=== PATIENT | male | born 1960 | race Caucasian/White ===

== ENCOUNTER 2023-03-04 21:27 | Emergency (ER) | payer OTHER, SELFPAY ==
[2023-03-04 21:30] VITALS: BP 146/83; PULSE 93; RESP 18; TEMP 36.3; O2SAT 96
--- NOTE | 2023-03-04 21:39 | ED_ITS ---
HPI - Back Pain/Injury General: Chief Complaint: Back Pain/Injury Stated Complaint: back pain Time Seen by Provider: 03/04/23 21:38 History of Present Illness: 62-year-old male patient comes in with l ow back pain. Patient has had low back pain for about 2 months now. Worse over the last 2 days. Patient gone to [facility] emergency room yesterday and was given a dose of morphine that he reported he had minimal to help with his back pain. Patient otherwise has been using [id number] medications with minimal relief. Patient went to a chiropractor with no relief. Patient appears nontoxic. Patient appears in moderate to severe pain. Review of Systems General: Reports: 10 or more systems reviewed and unremarkable except in HPI and below Musc: Reports: back pain PFS ED PFSH: Medical History (Updated 03/04/23 @ 22:44 by KARLEE Mcelroy) Prostate cancer screening Bladder wall thickening Lung nodule < 6cm on CT 2.5cm right lower lobe H/O drug abuse Smoker 1PPD Renal cell carcinoma Surgical History H/O right nephrectomy Physical Exam Const: COMMON NORMALS: alert HENMT: COMMON NORMALS: normocephalic HEAD & SCALP: normocephalic Neck/C-Spine: COMMON NORMALS: full ROM Resp: COMMON NORMALS: normal respiratory effort and clear to auscultation bilaterally AUSCULTATION: clear to auscultation bilaterally Cardio: COMMON NORMALS: regular rate RATE: regular rate Back/Pelvis: LUMBAR SPINE/LOWER BACK: No lumbar spinal tenderness and Yes paraspinal muscle tenderness Lumbar paraspinal muscle tenderness: right Extremity: COMMON NORMALS: normal to inspection Neuro: SENSORIUM/ORIENTATION: Yes alert Skin: COMMON NORMALS: turgor normal GENERAL SKIN EXAM: turgor normal Course Vital Signs: Vital signs: Vital Signs Temperature 97.4 F L 03/04/23 21:30 Pulse Rate 93 03/04/23 21:30 Respiratory Rate 18 03/04/23 21:30 Blood Pressure 146/83 03/04/23 21:30 Pulse Oximetry 96 03/04/23 21:30 Oxygen Delivery Me thod Room Air 03/04/23 21:30 MDM - Back Pain/Injury Medical Decision Making 62-year-old male patient with increased back pain. On exam patient has paraspinous muscle tenderness increased on the right than the left of the low back. Patient also has some vertebral tenderness in the L5 area. Differential diagnosis includes but not limited to intervertebral disc disease, facet arthropathy, lumbar radiculopathy, lumbar strain. X-ray notes degenerative changes. Patient was given a injection of Toradol and 1 hydrocodone with 10 mg of dexamethasone with significant improvement of low back pain. Patient was sent over a prescription for Celebrex and cyclobenzaprine. Patient reports understanding of care plan need for follow-up with primary care for further instructions. XR interpretation done by ED provider, pending radiology final review Discharge Plan Discharge Patient Disposition: Home Clinical Impression: Lumbar disc disease with radiculopathy Condition: Stable Prescriptions: New diclofenac sodium 75 mg tablet,delayed release (DR/EC) 75 mg PO BID Qty: 20 0RF cyclobenzaprine 10 mg tablet 10 mg PO BID PRN (Reason: muscle spasm) Qty: 20 0RF No Action sildenafil [Viagra] 50 mg tablet 50 mg PO DAILY PRN (Reason: sexual activity) Qty: 30 0RF Rx Instructions: administer 30 minutes to 4 hours before activity Discharge Orders: Discharge ED (Routine); Ordered 03/04/23 Ordered By: Daniel Hdez Discharge Diet: Usual diet Discharge Activity: Increase activity as tolerated Patient Instructions: Back Pain (ED) Activity Restrictions/Additional Instructions: Activity as tolerated. Is important to try to maintain your normal activity is much as possible. Avoid straining or heavy lifting. Follow-up with primary care in 1 week for recheck. Return to ER for new concerns. Coding Level of Care Code ED Glassware Maker Demonstrator for Jaya Lockhart
--- NOTE | 2023-03-04 21:42 | XRR_ITS ---
PROCEDURE INFORMATION: Exam: XR Lumbosacral Spine Exam date and time: 03/04/2023 10:29 PM Age: 62 years old Clinical indication: Lumbago; Patient HX: Chronic lower back pain; That radiates to posterior left leg/foot TECHNIQUE: Imaging protocol: Radiologic exam of the lumbosacral spine. Views: 2 or 3 views. COMPARISON: No relevant prior studies available. FINDINGS: Bones/joints: Severe degenerative disc disease at L5-S1. Multilevel facet arthrosis. Soft tissues: Unremarkable. XR/XR lumbar spine 2-3V* [id number] IMPRESSION: 1. Severe degenerative disc disease at L5-S1. 2. Multilevel facet arthrosis.
[2023-03-04] MEDS: ketorolac 30 mg/mL INJ IM (21:47)
[2023-03-04] MEDS: dexamethasone 10 mg/mL INJ IM (21:48)
[2023-03-04] MEDS: HYDROcodone-acetaminophen 10-325 mg Tablet 1 TAB PO (21:48)
== END 2023-03-04 22:54 | disposition home or self-care (01) ==
PROVIDERS: Emergency Provider Nurse Practitioner Family
DX: M51.16 Intervertebral disc disorders with radiculopathy, lumbar region (principal)
CPT/HCPCS: 72100; 96372; 99284; J1100; J1885

== ENCOUNTER 2023-03-19 13:07 | Emergency (ER) | payer OTHER, SELFPAY ==
[2023-03-19 13:10] VITALS: BP 153/84; PULSE 91; RESP 16; TEMP 36.4; O2SAT 94; BMI 23.7
--- NOTE | 2023-03-19 13:39 | W.ED.BACK ---
HPI - Back Pain/Injury General: Chief Complaint: Back Pain/Injury Stated Complaint: back pain Time Seen by Provider: 03/19/23 13:30 History of Present Illness: 62-year-old male patient comes in for recurrent back pain. Patient was seen 3 to 4 weeks ago and was treated at that time for back pain and was recommended to follow-up with primary care. Patient felt better after steroids and medications by mouth. Patient reports since last night though his pain has returned and that he is having increased pain and discomfort. Patient appears nontoxic. Patient appears in moderate pain. Review of Systems General: Reports: 10 or more systems reviewed and unremarkable except in HPI and below Musc: Reports: back pain PFSH ED PFSH: Medical History (Updated 03/19/23 @ 13:43 by KARLEE Mcelroy) Prostate cancer screening Bladder wall thickening Lung nodule < 6cm on CT 2.5cm right lower lobe H/O drug abuse Smoker 1PPD Renal cell carcinoma Surgical History H/O right nephrectomy Physical Exam Const: COMMON NORMALS: alert HENMT: COMMON NORMALS: normocephalic HEAD & SCALP: normocephalic Neck/C-Spine: COMMON NORMALS: full ROM Resp: COMMON NORMALS: normal respiratory effort Cardio: COMMON NORMALS: regular rate RATE: regular rate Back/Pelvis: COMMON NORMALS: thoracic and lumbar spine normal to inspection LUMBAR SPINE/LOWER BACK: Yes paraspinal muscle tenderness Extremity: COMMON NORMALS: full ROM Neuro: SENSORIUM/ORIENTATION: Yes alert Skin: COMMON NORMALS: turgor normal GENERAL SKIN EXAM: turgor normal Course Vital Signs: Vital signs: Vital Signs Temperature 97.6 F 03/19/23 13:10 Pulse Rate 91 03/19/23 13:10 Respiratory Rate 16 03/19/23 13:10 Blood Pressure 153/84 03/19/23 13:10 Pulse Oximetry 94 03/19/23 13:10 MDM - Back Pain/Injury Medical Decision Making Patient comes back for recurring back pain. On exam patient has some tenderness at the L5-S1 area of the spine. Some paraspinous muscle tenderness. Patient ambulates without difficulty. Patient appears in moderate pain. Patient needs follow-up with orthopedic spine. No new injuries were reported. Differential diagnosis includes intervertebral disc disease, facet arthropathy, lumbar radiculitis. No radiology studies performed this visit Discharge Plan Discharge Patient Disposition: Home Clinical Impression: Lumbar back pain Condition: Stable Prescriptions: New hydrocodone-acetaminophen 5-325 mg tablet 1 tab PO Q8H PRN (Reason: pain) Qty: 10 0RF celecoxib 200 mg capsule 200 mg PO BID Qty: 20 0RF Discontinued diclofenac sodium 75 mg tablet,delayed release (DR/EC) 75 mg PO BID Qty: 20 0RF No Action sildenafil [Viagra] 50 mg tablet 50 mg PO DAILY PRN (Reason: sexual activity) Qty: 30 0RF Rx Instructions: administer 30 minutes to 4 hours before activity cyclobenzaprine 10 mg tablet 10 mg PO BID PRN (Reason: muscle spasm) Qty: 20 0RF Discharge Orders: Discharge ED (Routine); Ordered 03/19/23 Ordered By: Daniel Hdez Discharge Diet: Usual diet Discharge Activity: Increase activity as tolerated Patient Instructions: Opioid Safety, Pain Management Activity Restrictions/Additional Instructions: Orthopedics will contact you regarding follow-up appointment with orthopedic spine. Follow-up with primary care otherwise for further evaluation and refills of medication. Return to ED for new concerns. Coding Level of Care Code ED Sheet Metal Duct Installer Helper for Jaya Lockhart
[2023-03-19] MEDS: HYDROcodone-acetaminophen 7.5-325 mg Tablet 1 TAB PO (13:55)
[2023-03-19] MEDS: ketorolac 30 mg/mL INJ IM (13:58)
[2023-03-19] MEDS: dexamethasone 10 mg/mL INJ IM (13:58)
[2023-03-19 14:31] VITALS: BP 158/107; PULSE 73; RESP 16; O2SAT 94
--- NOTE | 2023-03-19 20:15 | DCPLANNER ---
Addendum entered by Charissa Gomez 03/23/23 08:45: I resent message on 03/23/23 to ortho for back pain. 0845. Original Note: Message sent to Ortho spine for recurring persistent back pain
== END 2023-03-19 14:31 | disposition home or self-care (01) ==
PROVIDERS: Emergency Provider Nurse Practitioner Family
DX: M54.50 Low back pain, unspecified (principal); Z85.528 Personal history of other malignant neoplasm of kidney
CPT/HCPCS: 96372; 99284; J1100; J1885

== ENCOUNTER 2023-05-07 06:00 | Oncology outpatient (recurring) (ONCR) | payer OTHER, SELFPAY ==
--- NOTE | 2023-05-05 14:07 | N.ONRAD NP_ITS ---
Radiation Oncology New Patient Visit Patient: Zhang Escamilla MR#: [id number] : 1960> Age: 62> Sex: Male> Dictated by: Dr. Shabnam Tran Date of Service: 05/05/2023 Referring Physician(s) : Stefani Diagnosis: Stage IV kidney cancer Radiotherapy to date: Summary > No prior radiation therapy. Chief Complaint / History of Present Illness: Patient is 62-year-old gentleman with a history of a renal cell carcinoma dating back to 2013 for which she had surgery. In the fall he began to have increasing lumbar pain. From December on he said it was excruciating. 3 weeks ago he was evaluated and found to have metastatic disease with bony metastasis in the L2 vertebrae as well as 2 small less than 1 cm lesions in the brain. He is here today to discuss palliative radiation to help alleviate pain and possibly down the line treat the brain metastasis once he is comfortable. Current Medications: apixaban (Eliquis) mg PO celecoxib 200 mg PO BID cyclobenzaprine 10 mg PO BID PRN dexamethasone 4 mg PO DAILY metoprolol succinate ER 100 mg PO DAILY midodrine mg PO morphine ER mg PO oxycodone-acetaminophen 5-325 mg 1 tab PO Q6H pantoprazole 40 mg PO DAILY prednisone 20 mg PO DAILY prochlorperazine maleate mg PO sildenafil (Viagra) 50 mg PO DAILY PRN Allergies: NKA Medical History: Prostate cancer screening Bladder wall thickening, A-fib, GI bleed, COPD, multiple lung metastasis Lung nodule < 6cm on CT 2.5cm right lower lobe H/O drug abuse Smoker 1PPD Renal cell carcinoma. Surgical History: H/O right nephrectomy 2013 Family History: Social History: Current Complaints / Review of Systems: . Currently he is having considerable pain. He is on a significant amount of pain medicine at this time. He also has had some intermittent diarrhea. Vital Signs: Performed on 05/05/2023 1:39 PM BMI - 23.624 kg/m2 (high), Height - 75 in, Weight - 189 lbs, Temperature - 96.2 f, Pulse - 51 /min (low), Respiration - 18 /min, O2 Sat - 90 % (low), Pain - 0, Fatigue - 0 and BP - 89/ 60 mm(hg)(low). Physical Exam: General: Patient is hunched over in his chair. His son is rubbing on his back. HEENT: Normocephalic atraumatic. Pupils are equal, sclera clear, extraocular muscles intact. Patient is noted to have extremely poor dentition. Pulmonary: Patient has oxygen in place as he was short of breath when he arrived. Pulse ox is only 90% on 2 L. Respiratory rate is regular and nonlabored Cardiovascular: Regular rate and rhythm Abdomen: Patient is thin with minimal adipose tissue Extremities: Noted to have mild clubbing but no cyanosis or edema Skin: Warm and dry with chronic skin changes across his face and arms Neurological: Alert and orient x 3 speech intact. Patient is in a wheelchair Performance Status: 70 Pathology: Renal cell carcinoma Imaging: See HPI Impression: Stage IV renal cell carcinoma Plan: I reviewed with him his current pain level. He is able to control most of his pain with the medication. Prior to that it was unbearable. Is located at the L2 vertebrae. He had some concerns about undergoing radiation as his father had a difficult course in 2004. I reassured him that we would be delivering radiation to the L2 vertebrae and minimize toxicity to surrounding structures. We discussed the simulation process. We reviewed the daily treatment regiment. He drives nearly an hour to get here. I recommended to him that we do a 3 time a week treatment in order to not have as much of an impact on him. He is in agreement with this. He will undergo simulation today and will begin his treatments within the next 3 to 4 days. Signed by: 05/05/2023 2:05:50 PM <<Signature on File>> Time spent with patient: CPT Code: CPT Code:
[2023-05-05 16:25] LABS: Reticulocyte % 1.9 % (0.5-2.0)
[2023-05-05 16:25] LABS: Basophils % 0.1 %; Hematocrit 40.7 % (37-53); Lymphocytes # 0.7 10^3/uL (0.8-4.8); Lymphocytes % 3.6 %; Mean Corpuscular HGB Conc 28.7 g/dL (30-55); Mean Corpuscular Hemoglobin 26.9 pg (27-33); Mean Corpuscular Volume 93.6 fl (82-101); Mean Platelet Volume 9.4 fL (7.4-10.4); Monocytes # 0.9 10^3/uL (0.2-0.9); Monocytes % 4.9 %; Neutrophils # 17.09 10^3/uL (1.8-7.7); Neutrophils % 90.3 %; Nucleated Red Blood Cells % 0 %; Platelet Count 439 10^3/cmm (157-399); Red Blood Count 4.35 10^6/uL (3.85-5.65); Red Cell Distribution Width 17.6 % (12.1-15.1); White Blood Count 18.91 10^3/uL (3.29-11.43)
[2023-05-05 17:02] LABS: Alanine Aminotransferase 63 U/L (0-41); Albumin Level 3.4 g/dL (3.5-5.2); Alkaline Phosphatase 197 U/L (40-130); Anion Gap 15.8 (5-19); Aspartate Amino Transferase 13 U/L (0-40); Blood Urea Nitrogen 22 mg/dL (8-23); Calcium 8.2 mg/dL (8.5-10.5); Carbon Dioxide 25 mmol/L (22-29); Chloride 104 mmol/L (98-107); Free T4 Free Thyroxine 0.71 ng/dL (0.82-1.77); Globulin 3.1 g/dL (1.3-4.6); Glomerular Filtration Rate 113.9 mL/min (90-130); Glucose 115 mg/dL (65-115); Lactate Dehydrogenase 230 U/L (135-225); Osmolality Calculated 294 mOsm/kg (285-295); Potassium 4.8 mmol/L (3.5-5.1); Prostate Specific Antigen 0.242 ng/mL (0-4); Sodium 140 mmol/L (136-145); Thyroid Stimulating Hormone 4.26 uIU/mL (0.27-4.20); Total Bilirubin 0.4 mg/dL (0.15-1.2); Total Protein 6.5 g/dL (6.6-8.7)
[2023-05-05 17:27] LABS: Folate Level 2.8 ng/mL (4.5-32.2)
[2023-05-05 21:22] LABS: Hepatitis A Antibody IgM Non-Reactive (Nonreactive); Hepatitis B Core AB, Total Non-Reactive (Nonreactive); Hepatitis B Surface Antigen Non-Reactive (Nonreactive); Hepatitis C Virus Antibody Non-Reactive (Nonreactive)
[2023-05-06 01:50] LABS: Ferritin 956 ng/mL (30-400)
[2023-05-06 02:07] LABS: Vitamin B12 689 pg/mL (232-1245)
[2023-05-06 08:42] LABS: Hepatitis B Surface AB < 3.5 (11.5-1000)
[2023-05-07 09:50] LABS: PROTEIN, TOTAL 6.4 g/dL (6.1-8.1)
[2023-05-08 09:39] LABS: ALPHA 1 GLOBULIN 0.7 g/dL (0.2-0.3); ALPHA 2 GLOBULIN 1.2 g/dL (0.5-0.9); BETA 1 GLOBULIN 0.4 g/dL (0.4-0.6); BETA 2 GLOBULIN 0.4 g/dL (0.2-0.5); GAMMA GLOBULIN 0.7 g/dL (0.8-1.7)
[2023-05-10 04:04] LABS: Methylmalonic Acid 162 nmol/L (87-318)
[2023-05-11 12:09] LABS: Soluble Transferrin Receptor 2.25 mg/L (0.76-1.76)
[2023-05-11 15:03] LABS: KAPPA LIGHT CHAIN, FREE, SERUM 27.3 mg/L (3.3-19.4); KAPPA/LAMBDA LIGHT CHAINS FREE 1.36 (0.26-1.65); LAMBDA LIGHT CHAIN, FREE, SERU 20.1 mg/L (5.7-26.3)
== END 2023-05-10 23:59 | disposition home or self-care (01) ==
PROVIDERS: Internal Medicine; Visit Provider Radiology Radiation Oncology
DX: C79.51 Secondary malignant neoplasm of bone (principal); C79.31 Secondary malignant neoplasm of brain; Z85.528 Personal history of other malignant neoplasm of kidney; Z79.891 Long term (current) use of opiate analgesic; Z51.0 Encounter for antineoplastic radiation therapy; Z99.81 Dependence on supplemental oxygen
CPT/HCPCS: 36415; 77290; 77295; 77300; 77334; 80053; 82607; 82728; 82746; 83615; 83883; 83921; 84153; 84155; 84165; 84238; 84439; 84443; 85025; 85045; 86334; 86705; 86706; 86709; 86803; 87340; 99205

== ENCOUNTER 2023-05-07 09:52 | Inpatient (IN) | payer OTHER, SELFPAY ==
[2023-05-07] VITALS (60 sets, daily range): BP systolic 77–113; BP diastolic 53–91; PULSE 71–167; RESP 12–29; TEMP 36.2–36.9; O2SAT 85–97; BMI 22.5
--- NOTE | 2023-05-07 10:15 | ECG_ITS ---
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 Measurements Intervals Soper Rate: 114 P: 0 AL: 0 QRS: 125 QRSD: 129 T: -82 QT: 322 QTc: 443 Interpretive Statements ATRIAL FLUTTER WITH RAPID VENTRICULAR RESPONSE RIGHT BUNDLE BRANCH BLOCK [120+ ms QRS DURATION, UPRIGHT V1, 40+ ms S IN I/aVL/V4/V5/V6] LEFT POSTERIOR FASCICULAR BLOCK [QRS AXIS > 109, INFERIOR Q] MODERATE T-WAVE ABNORMALITY, CONSIDER LATERAL ISCHEMIA [-0.1+ mV T-WAVE IN I/aVL/V5/V6] MODERATE T-WAVE ABNORMALITY, CONSIDER INFERIOR ISCHEMIA [-0.1+ mV T-WAVE IN II/aVF] No previous ECG available for comparison Electronically Signed On 05-07-2023 11:19:27 CDT by Jamal Garcia M.D. [id number]
--- NOTE | 2023-05-07 10:15 | XR_ITS ---
WS: [id number] Exam: XR chest 1V [id number] Date/Time of Exam: 05/07/2023 10:33 AM Reason For Exam: shortness of breath Compared to outside chest CT performed 04/08/2023. Large area of consolidation along the RIGHT heart border that may represent either pneumonia or a lar ge mass. Prominent RIGHT basal pleural effusion and atelectasis in the RIGHT middle and lower lobes. Several ill-defined nodular densities in the mid and lower LEFT lung. No pneumothorax. Heart size is normal. The mediastinum is normal in contour. Bony structures are intact. IMPRESSION: 1. Extensive area of consolidation in the mid and lower RIGHT lung that may represent a large mass or consolidated pneumonia. Prominent RIGHT basal pleural effusion. 2. Several small ill-defined nodular densities in the mid and lower LEFT lung.
--- NOTE | 2023-05-07 10:17 | ED_ITS ---
HPI - SOB/Dyspnea 2 General: Chief Complaint: Shortness of Breath/Dyspnea Stated Complaint: SOB Time Seen by Provider: 05/07/23 09:53 History of Present Illness: HPI Narrative: 62-year-old man who is fairly poor histo loli on my look at his medications it appears he is on Eliquis, he is not sure why but he presents today with shortness of breath and is in A-fib with RVR. He also has chronic pain syndrome and has listed morphine and oxycodone taken regularly. He says he had some cough. He feels short of breath. He has noticed some palpitations. He really does not know any of his other medical problems. He says he has not had a heart attack in the past. No known fevers. He later tells me that he was treated for pneumonia at [facility] around a month ago. Review of Systems 2 Narrative: Constitutional symptoms: Negative except as documented in HPI. Skin symptoms: Negative except as documented in HPI. Eye symptoms: Negative except as documented in HPI. ENMT symptoms: Negative except as documented in HPI. Respiratory symptoms: Negative except as documented in HPI. Cardiovascular symptoms: Negative except as documented in HPI. Gastrointestinal symptoms: Negative except as documented in HPI. Genitourinary symptoms: Negative except as documented in HPI. Musculoskeletal symptoms: Negative except as documented in HPI. Neurologic symptoms: Negative except as documented in HPI. Psychiatric symptoms: Negative except as documented in HPI. Endocrine symptoms: Negative except as documented in HPI. PFSH ED 2 PFSH: Medical History (Updated 05/07/23 @ 13:15 by Marie Edouard MD) Metastatic renal cell carcinoma Prostate cancer screening Bladder wall thickening Lung nodule < 6cm on CT 2.5cm right lower lobe H/O drug abuse Smoker 1PPD Renal cell carcinoma Surgical History H/O right nephrectomy Physical Exam 2 Narrative: EXAM NARRATIVE: General: Alert, no acute distress. Skin: Warm, dry. Head: Normocephalic, atraumatic. Neck: Supple, trachea midline. Eye: Extraocular movements are intact. Ears, nose, mouth and throat: mucosa moist. Cardiovascular: Tachycardic, irregular, Normal peripheral perfusion. Respiratory: Diminished breath sounds in the right lower lung, some increased work of breathing with any kind of exertion, breath sounds are equal, Symmetrical chest wall expansion. Gastrointestinal: Soft, Nontender, Non distended, Normal bowel sounds. Musculoskeletal: Normal ROM, no deformity. Neurological: Alert and oriented, No focal neurological deficit observed. Psychiatric: Cooperative, appropriate mood & affect. Course 2 Vital Signs: Vital signs: Vital Signs Temperature 98.4 F 05/07/23 09:57 Pulse Rate 108 H 05/07/23 12:30 Respiratory Rate 20 H 05/07/23 10:31 Blood Pressure 102/64 05/07/23 12:30 Pulse Oximetry 92 05/07/23 12:30 Oxygen Delivery Me thod Nasal Cannula 05/07/23 12:30 Oxygen Flow Rate 3 05/07/23 11:30 MDM - SOB/Dyspnea Medical Decision Making Differential diagnosis for patient with shortness of breath includes but is not limited to and based on the above HPI, review of systems and physical exam: Pneumonia. Bronchitis. Asthma or COPD with acute exacerbation. Acute coronary syndrome / MD. Pulmonary embolism. Anxiety. Congestive heart failure. Viral infections including influenza and Covid-19. Atrial fibrillation. Anxiety. Pleural effusion. Pneumothorax. In this patient who presents in atrial fibrillation with RVR congestive heart failure is a concern. Workup: Lab work, chest X-ray and EKG ordered to evaluate, rule in and rule out above pathologies Lab Review: Laboratory results were reviewed and interpreted by myself the emergency room physician. Patient has a white count of 16,000. Hemoglobin is 11.9. BUN is 28 and creatinine is 0.8 Chest x-ray: Right-sided effusion and possible mass. What appears to be a right-sided infiltrate. Pulmonary nodules. This was reviewed and interpreted by myself the ER physician. Cardiac monitoring: Patient initially had heart rate in the 150s to 160s. An EKG was not performed until after amiodarone bolus and fluids were started. This was interpreted by myself the emergency room physician. EKG: Time 10:37 AM rate 114. Atrial flutter with rapid ventricular response. Nonspecific T wave abnormality. This was reviewed and interpreted by myself the ER physician at 10:45 AM. EKG: Time 12:31 AM. Rate 81. Atrial flutter.. Nonspecific T wave abnormality. This was reviewed and interpreted by myself the ER physician at CT of the chest without contrast: Numerous lung nodules. pleural effusion. A mass on the right side. I think there is some postobstructive pneumonia particularly given his clinical presentation. I reviewed and interpreted this film personally. I also reviewed the radiology review which is summarized below 1. Innumerable pulmonary metastasis in both lungs similar to the prior outside CT 04/08/2023. Some of these appear slightly progressed compared to previous considering differences in technique. 2. Progressed masslike consolidation in the RIGHT lower lobe with central low- attenuation change. This may present dense consolidative pneumonia or necrotic neoplasm. Increased surrounding infiltrate likely postobstructive pneumonia. 3. RIGHT hilar lymphadenopathy with bronchovascular thickening. 4. Small RIGHT pleural effusion. 5. Partially visualized liver metastasis with lymphadenopathy in the upper abdomen. 6. Sclerotic lesion L2 vertebral body appears stable compared to the outside examination presumably metastatic. 7. Prior RIGHT nephrectomy Reexamination: Patient has improved heart rate. He is now in flutter. No increased work of breathing. No altered mental status. He actually does appear a bit more alert at this time. Lab Data 05/07/23 10:15 05/07/23 10:15 Labs/Radiology: Laboratory Results WBC 15.77 10^3/uL (3.29-11.43) H 05/07/23 10:15 RBC 4.42 10^6/uL (3.85-5.65) 05/07/23 10:15 Hgb 11.90 g/dL (11.27-16.99) 05/07/23 10:15 Hct 41.4 % (37-53) 05/07/23 10:15 MCV 93.7 fl (82-101) 05/07/23 10:15 MCH 26.9 pg (27-33) L 05/07/23 10:15 MCHC 28.7 g/dL (30-55) L 05/07/23 10:15 RDW 17.5 % (12.1-15.1) H 05/07/23 10:15 Plt Count 353 10^3/cmm (157-399) 05/07/23 10:15 MPV 9.4 fL (7.4-10.4) 05/07/23 10:15 Neut % (Auto) 81.7 % 05/07/23 10:15 Lymph % (Auto) 8.8 % 05/07/23 10:15 Amite % (Auto) 6.9 % 05/07/23 10:15 Eos % (Auto) 1.5 % 05/07/23 10:15 Baso % (Auto) 0.1 % 05/07/23 10:15 Neut # (Auto) 12.88 10^3/uL (1.8-7.7) H 05/07/23 10:15 Lymph # (Auto) 1.4 10^3/uL (0.8-4.8) 05/07/23 10:15 Amite # (Auto) 1.1 10^3/uL (0.2-0.9) H 05/07/23 10:15 Eos # (Auto) 0.2 10^3/uL (0.0-0.8) 05/07/23 10:15 Baso # (Auto) 0.0 10^3/uL (0.0-0.1) 05/07/23 10:15 Nucleated RBC % (auto) 0 % 05/07/23 10:15 Nucleated RBCs # 0.0 /100WBC 05/07/23 10:15 Sodium 140 mmol/L (136-145) 05/07/23 10:15 Potassium 4.6 mmol/L (3.5-5.1) 05/07/23 10:15 Chloride 106 mmol/L (98-107) 05/07/23 10:15 Carbon Dioxide 25 mmol/L (22-29) 05/07/23 10:15 Anion Gap 13.6 (5-19) 05/07/23 10:15 BUN 28 mg/dL (8-23) H 05/07/23 10:15 Creatinine 0.8 mg/dL (0.7-1.2) 05/07/23 10:15 GFR Calculation 97.6 mL/min (90-130) 05/07/23 10:15 Glucose 84 mg/dL (65-115) 05/07/23 10:15 Calculated Osmolality 295 mOsm/kg (285-295) 05/07/23 10:15 Calcium 8.6 mg/dL (8.5-10.5) 05/07/23 10:15 Magnesium 1.7 mg/dL (1.7-2.3) 05/07/23 10:15 Total Bilirubin 0.3 mg/dL (0.15-1.2) 05/07/23 10:15 AST 10 U/L (0-40) 05/07/23 10:15 ALT 48 U/L (0-41) H 05/07/23 10:15 Alkaline Phosphatase 183 U/L (40-130) H 05/07/23 10:15 Troponin T Baseline 33 ng/L (0-15) H 05/07/23 10:15 Troponin T 120 Minute 34.50 ng/L (0-15) H 05/07/23 12:09 Delta Troponin T 1.50 ABS# (0-10) 05/07/23 12:09 C-Reactive Protein 75.3 mg/L (0.0-4.9) H 05/07/23 10:15 NT-Pro-B Natriuret Pep 7049 pg/mL (0-125) H 05/07/23 10:15 Total Protein 5.4 g/dL (6.6-8.7) L 05/07/23 10:15 Albumin 3.0 g/dL (3.5-5.2) L 05/07/23 10:15 Globulin 2.4 g/dL (1.3-4.6) 05/07/23 10:15 Influenza Type A Ag negative (Negative) 05/07/23 10:41 Influenza Type B Ag negative (Negative) 05/07/23 10:41 All radiology interpretation(s) finalized by discharge Other Data Assessment and plan: A-fib with RVR Healthcare associated bacterial pneumonia Sepsis Hypotension -Amiodarone bolus and fluids were started initially for his rate. Rate has improved and now is in the 80s on a diltiazem drip. Blood pressure still borderline at 95/59. -Patient initially came in with A-fib with RVR and had no infectious complaints. His hypotension improved with improvement in his heart rate. Chest x-ray was abnormal. A CT scan was ordered and that does appear to have pneumonia and so at that time lactic acid and blood cultures were ordered there was some delay secondary to initially seeming to be more cardiac. -1 L normal saline bolus. Patient has a proBNP of over 7000. -Broad-spectrum antibiotics were administered. Zyvox and meropenem. Patient has had a hospitalization for pneumonia recently. -Sepsis quality measures. -Lactic acid with a reflex was ordered. -Blood cultures were ordered. - I spoke with Dr Stephanie whi is admitting the patient to the ICU - Discussed findings and plan with patient. Answered any questions. - All laboratory values were reviewed and interpreted personally by myself, the ER physician - All imaging was reviewed and interpreted personally by myself, the ER physician. - Evaluation and treatment of this problem were appropriate in the emergency setting -I spent a total of >35 minutes of critical care time managing the patient, independent of any other practitioner. -The time involved in the performance of separately reportable procedures was not counted towards critical care time. Discharge Plan Discharge Patient Disposition: Admitted As Inpatient Clinical Impression: Pneumonia, Sepsis, Atrial fibrillation with rapid ventricular response, Acute hypotension Condition: Stable Coding Level of Care Code ED Clinical Nursing Instructor for Jaya Lockhart
[2023-05-07] MEDS: sodium chloride 0.9% 1,000 ML 999 ML IV (10:23)
[2023-05-07] MEDS: amiodarone 150 MG/100 ML PREMIX 400 MG IV (10:24)
[2023-05-07 10:46] LABS: Basophils % 0.1 %; Eosinophils # 0.2 10^3/uL (0.0-0.8); Eosinophils % 1.5 %; Hematocrit 41.4 % (37-53); Lymphocytes # 1.4 10^3/uL (0.8-4.8); Lymphocytes % 8.8 %; Mean Corpuscular HGB Conc 28.7 g/dL (30-55); Mean Corpuscular Hemoglobin 26.9 pg (27-33); Mean Corpuscular Volume 93.7 fl (82-101); Mean Platelet Volume 9.4 fL (7.4-10.4); Monocytes # 1.1 10^3/uL (0.2-0.9); Monocytes % 6.9 %; Neutrophils # 12.88 10^3/uL (1.8-7.7); Neutrophils % 81.7 %; Nucleated Red Blood Cells % 0 %; Platelet Count 353 10^3/cmm (157-399); Red Blood Count 4.42 10^6/uL (3.85-5.65); Red Cell Distribution Width 17.5 % (12.1-15.1); White Blood Count 15.77 10^3/uL (3.29-11.43)
[2023-05-07 11:07] LABS: Troponin(5th) Baseline 33 ng/L (0-15)
[2023-05-07 11:09] LABS: Influenza A by IFA negative (Negative); Influenza B by IFA negative (Negative)
--- NOTE | 2023-05-07 11:12 | CT_ITS ---
WS: [id number] CT CHEST TECHNIQUE: Noncontrast CT of the chest with coronal and sagittal reformatted images. CLINICAL INFORMATION: Abnormal chest x-ray COMPARISON: Outside CT 04/08/2023. No report available. DLP: 534.[address] scans at [facility] use at least one of these dose optimization techniques: automated e xposure control; mA and/or kV adjustment per patient size (includes targeted exams where dose is matc hed to clinical indication); or iterative reconstruction. FINDINGS: Advanced chronic emphysematous changes. Innumerable bilateral pulmonary metastasis similar to 04/08/2023. Some of these appear slightly progressed compared to the prior examination. Bronchovasc ular thickening with lymphadenopathy about the RIGHT hilum. Consolidative masslike infiltrate in the RIGHT lower lobe appears slightly progressed compared to 03/31/2023 with increased surrounding RIGHT l ower lobe infiltrate compatible with pneumonia likely postobstructive. Tiny amount of RIGHT pleural f luid with fluid along the fissure. Partially visualized presumed metastasis in the liver although indeterminate on this noncontrast CT. Diffuse mesenteric edema and body wall anasarca in the upper abdomen. Partially visualized LEFT renal cyst. Hepatomegaly. Prior RIGHT nephrectomy. Lymphadenopathy partially visualized in the upper abdom en periaortic aortocaval and retroperitoneal. Sclerotic metastatic lesion L2 vertebral body is similar to the prior study. IMPRESSION: 1. Innumerable pulmonary metastasis in both lungs similar to the prior outside CT 04/08/2023. Some of these appear slightly progressed compared to previous considering differences in technique. 2. Progressed masslike consolidation in the RIGHT lower lobe with central low-attenuation change. Th is may present dense consolidative pneumonia or necrotic neoplasm. Increased surrounding infiltrate l ikely postobstructive pneumonia. 3. RIGHT hilar lymphadenopathy with bronchovascular thickening. 4. Small RIGHT pleural effusion. 5. Partially visualized liver metastasis with lymphadenopathy in the upper abdomen. 6. Sclerotic lesion L2 vertebral body appears stable compared to the outside examination presumably metastatic. 7. Prior RIGHT nephrectomy
--- NOTE | 2023-05-07 11:22 | PC.PHAR ---
SPOUSE DOES NOT ANSWER PHONE, NOR DOES SON. VERIFIED MEDICATIONS VIA [facility] ED AT [facility]. CORRECT DOSE ON ELIQUIS 5MG IS TWICE DAILY, METOPROLOL TARTRATE 100MG IS TWICE DAILY,MIDODRINE 5MG IS EVERY 8 HOURS,PERCOCET IS EVERY 6 HOURS NEEDED FOR BREAK THROUGH PAIN MAX 4 DAILY, AND PROCHLORPERAZINE 10MG IS EVERY 6 HOURS NEEDED FOR NAUSEA AND VOMITING. NARCAN WAS ADDED NEW. THESE CHANGES HAVE BEEN MADE.
[2023-05-07] MEDS: dilTIAZem 100 MG in sodium chloride 0.9% (add-van) 100 ML 10 MG IV (11:27)
[2023-05-07 11:31] LABS: Alanine Aminotransferase 48 U/L (0-41); Alkaline Phosphatase 183 U/L (40-130); Anion Gap 13.6 (5-19); Aspartate Amino Transferase 10 U/L (0-40); Blood Urea Nitrogen 28 mg/dL (8-23); C Reactive Protein 75.3 mg/L (0.0-4.9); Calcium 8.6 mg/dL (8.5-10.5); Carbon Dioxide 25 mmol/L (22-29); Chloride 106 mmol/L (98-107); Creatinine Clr Calc Pharmacy 111.4345; Globulin 2.4 g/dL (1.3-4.6); Glomerular Filtration Rate 97.6 mL/min (90-130); Glucose 84 mg/dL (65-115); Magnesium 1.7 mg/dL (1.7-2.3); NT Pro B Type Natriuretic Pept 7049 pg/mL (0-125); Osmolality Calculated 295 mOsm/kg (285-295); Potassium 4.6 mmol/L (3.5-5.1); Sodium 140 mmol/L (136-145); Total Bilirubin 0.3 mg/dL (0.15-1.2); Total Protein 5.4 g/dL (6.6-8.7)
[2023-05-07] MEDS: meropenem 500 MG in sodium chloride 0.9% (plus) 50 ML 100 MG IV (12:21)
--- NOTE | 2023-05-07 12:31 | ECG_ITS ---
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 Measurements Intervals [place] Rate: 81 P: 0 MI: 0 QRS: 133 QRSD: 112 T: -85 QT: 319 QTc: 372 Interpretive Statements ATRIAL FLUTTER INCOMPLETE RIGHT BUNDLE BRANCH BLOCK [90+ ms QRS DURATION, TERMINAL R IN V1/V2, 40+ ms S IN I/aVL/V4/V5/V6] POSSIBLE RIGHT VENTRICULAR HYPERTROPHY [SOME/ALL OF: PROMINENT R IN V1, LATE TRANSITION, RAD, CLAIRE, SSS] MODERATE T-WAVE ABNORMALITY, CONSIDER LATERAL ISCHEMIA [-0.1+ mV T-WAVE IN I/aVL/V5/V6] MODERATE T-WAVE ABNORMALITY, CONSIDER INFERIOR ISCHEMIA [-0.1+ mV T-WAVE IN II/aVF] Compared to ECG 05/07/2023 10:37:43 Incomplete right bundle-branch block now present Right bundle-branch block no longer present Left posterior fascicular block no longer present T-wave abnormality still present Possible ischemia still present Electronically Signed On 05-07-2023 16:14:41 CDT by Jamal Garcia M.D. [id number]
[2023-05-07] MEDS: linezolid premix 600 MG/300 ML PREMIX 300 MG IV (13:31)
[2023-05-07 14:09] LABS: Lactic Sepsis W/Reflex 1.5 mmol/L (0.5-2.2)
--- NOTE | 2023-05-07 14:29 | USCV_ITS ---
Zhang Escamilla Age: 62 Gender: M : 1960 Exam Date: 05/07/2023 14:47 Ordering Phys: Louis Brown MD Technologist: JENNIFER Exam Location: [facility] [place] Indication: BLE SWELLING HISTORY: Lower extremity swelling. Lower extremity pain. PROCEDURES: Venous duplex imaging was performed in bilateral lower extremities. The following venous structures were evaluated: common femoral vein, profunda vein, proximal portion of the greater saphenous vein, superficial femoral vein, and the popliteal vein. In addition, the posterior tibial and peroneal trunk were evaluated. Serial compression, augmentation maneuvers, and spectral Doppler flow evaluation were performed. FINDINGS: No evidence of DVT seen in any vessel visualized at this time. Examination was technically limited due to body habitus. Edema seen in michael lower legs CONCLUSIONS No evidence of right lower extremity DVT. No evidence of left lower extremity DVT. Rich Ahn MD (Electronically Signed) Final Date: 07 May 2023 15:51 S
--- NOTE | 2023-05-07 14:30 | P.HP_ITS ---
Providers/Chief Complaint 2 Chief Complaint: SOB History of Present Illness Zhang Escamilla is a 62 year old male with a past medical history of past advanced COPD, active smoker, history of atrial fibrillation, on Eliquis history of right nephrectomy in 2013, recently diagnosed with metastatic renal cell carcinoma, to the vertebral spine, total lungs, with brain metastasis, on dexamethasone, followed by oncology in [place], plans on chemotherapy and radiation therapy, history of GI bleed, who presents [facility] for shortness of breath, for the last few days. Patient reports increased shortness of breath, for the last few days, increased cough, increased lower extremity edema, with his heart racing. He tells me that he has not started his chemotherapy as of yet, has not started any radiation therapy, he tells me that he has orthopnea, paroxysmal nocturnal dyspnea, denies any fevers, no chills, does have fatigue and malaise. On arrival to the emergency room patient was hypotensive, tachycardic A-fib with RVR heart rates in the 150s, afebrile, alert oriented x 3, initially started on IV amiodarone drip, then transition to a Cardizem drip, due to low blood pressures was given a fluid bolus, currently blood pressures 100s over 60s, heart rates in the 110s, atrial fibrillation, with rapid ventricular response, he is alert oriented x 3, currently on 3 L sitting up in bed, complaining of shortness of breath, Review of Systems 2 Const: Reports: fatigue and malaise; Denies: fever(s) or chills Eyes: Denies: change in vision Card: Reports: palpitations; Denies: chest pain Resp: Reports: dyspnea and non-productive cough GI: Denies: abdominal pain, nausea or vomiting : Denies: flank pain Musc: Reports: back pain Skin/Breast: Denies: rash Neuro: Denies: headache(s) Endo: Denies: polyuria Medications/Allergies Home Medications Medication Instructions Recorded Confirmed Last Taken Type apixaban 5 mg tablet (Eliquis) 5 mg PO BID 04/21/23 05/07/23 Unknown History dexamethasone 4 mg tablet 4 mg PO Q6H 04/21/23 05/07/23 Unknown History midodrine 5 mg tablet 5 mg PO Q8H 04/21/23 05/07/23 Unknown History morphine 15 mg tablet,extended 15 mg PO Q12H 04/21/23 05/07/23 Unknown History release oxycodone-acetaminophen 5 mg-325 1 tab PO Q6H PRN break through pain 04/21/23 05/07/23 Unknown History mg tablet pantoprazole 40 mg tablet,delayed 40 mg PO BID 04/21/23 05/07/23 Unknown History release prochlorperazine maleate 10 mg 10 mg PO Q6H PRN nausea or vomiting 04/21/23 05/07/23 Unknown History tablet axitinib 5 mg tablet 5 mg PO BID #60 tabs 04/27/23 05/07/23 Unknown Rx fluconazole 150 mg tablet 150 mg PO DAILY 05/07/23 05/07/23 Unknown History metoprolol tartrate 100 mg tablet 100 mg PO BID 05/07/23 05/07/23 Unknown History naloxone 4 mg/actuation nasal See Rx Instructions .Route .COMPLEX 05/07/23 05/07/23 Unknown History spray (Narcan) nystatin 100,000 unit/mL oral 10 ml PO BID 05/07/23 05/07/23 Unknown History suspension Allergies Allergy/AdvReac Type Severity Reaction Status Date / Time No Known Allergies Allergy Verified 04/21/23 11:36 PFSH Acute 2 PFSH: Medical History Metastatic renal cell carcinoma Prostate cancer screening Bladder wall thickening Lung nodule < 6cm on CT 2.5cm right lower lobe H/O drug abuse Smoker 1PPD Renal cell carcinoma Surgical History H/O right nephrectomy Family History (Updated 05/07/23 @ 14:36 by Louis Brown MD) Mother Stomach cancer Father Bone cancer Social History (Updated 05/07/23 @ 14:36 by Louis Brown MD) Smoking and tobacco/nicotine status: current every day tobacco/nicotine user Alcohol intake: current Alcohol intake frequency: 0-2 Drinks per Day Substance/Drug Use: never Vitals/I&O/Wt Last Vital Signs Temp 98.4 F 05/07/23 09:57 Pulse 110 H 05/07/23 14:27 Resp 24 H 05/07/23 14:27 BP 102/64 05/07/23 12:30 Pulse Ox 90 05/07/23 14:27 O2 Del Method Nasal Cannula 05/07/23 12:30 O2 Flow Rate 3 05/07/23 11:30 05/06/23 05/07/23 05/07/23 22:59 06:59 14:59 Intake Total 1150 / 1150 Balance 1150 / 1150 Weight last 48 hrs Weight 81.647 kg Physical Exam 2 Const: COMMON NORMALS: no acute distress and patient oriented x3 GENERAL APPEARANCE: ill appearing and frail appearing HENMT: COMMON NORMALS: normocephalic HEAD & SCALP: normocephalic Eye: COMMON NORMALS: Equal, round and reactive pupils present and EOMs intact bilaterally Neck/C-Spine: COMMON NORMALS: no lymphadenopathy Resp: COMMON NORMALS: normal respiratory effort AUSCULTATION: wheezes O THER: Intercostal retractions, nasal flaring, tachypnea, mild respiratory distress, uses accessory muscles Cardio: COMMON NORMALS: S1 normal heart sound present and S2 normal heart sound present RATE: tachycardic RHYTHM: abnormal rhythm irregularly irregular HEART SOUNDS: S1 normal heart sound present and S2 normal heart sound present GI: COMMON NORMALS: Normal to inspection, nondistended, normoactive bowel sounds present, Soft to palpation and non-tender : COMMON NORMALS: Yes no CVA tenderness Extremity: NARRATIVE EXTREMITY EXAM: Pale bilateral extremities, cap refill greater than 2 seconds, has 2+ pitting edema, has leg wraps on Neuro: COMMON NORMALS: patient oriented x3, CN's II-XII intact bilaterally and moves all extremities Psych: COMMON NORMALS: mental status grossly normal Sepsis: Is patient septic: Yes Focused sepsis exam performed: Yes F ocused sepsis exam: Diminished cap refill bilaterally greater than 2 seconds, pale bilateral lower extremities, 2+ pitting edema, DP PT pulses difficult to assess Date exam was performed: 05/07/23 Time exam was performed: 14:39 Data 05/07/23 10:15 05/07/23 10:15 Micro: Microbiology 05/07/23 13:55 Blood Culture - Preliminary Blood SPECIMEN COLLECTED A&P Assessment and plan (1) Acute hypoxic respiratory failure: (2) Shock: (3) Atrial fibrillation with rapid ventricular response: (4) Metastatic renal cell carcinoma: (5) Sepsis: (6) Pneumonia: (7) Smoker: (8) Postobstructive pneumonia: (9) Systolic CHF, acute: (10) Acute exacerbation of CHF (congestive heart failure): (11) Physical deconditioning: (12) Protein calorie malnutrition: (13) Lung mass: (14) NSTEMI (non-ST elevated myocardial infarction): (15) Immunocompromised due to corticosteroids: (16) COPD exacerbation: Plan Acute hypoxic respiratory failure, ? Likely multifactorial ? Secondary to postobstructive pneumonia, metastatic renal cell carcinoma to the lung, lung mass, ? Systolic CHF exacerbation, fluid overload, ? A-fib with RVR, ? With history of advanced COPD, on exacerbation ?IMPRESSION: 1. Innumerable pulmonary metastasis in both lungs similar to the prior outside CT 04/08/2023. Some of these appear slightly progressed compared to previous considering differences in technique. 2. Progressed masslike consolidation in the RIGHT lower lobe with central low- attenuation change. This may present dense consolidative pneumonia or necrotic neoplasm. Increased surrounding infiltrate likely postobstructive pneumonia. 3. RIGHT hilar lymphadenopathy with bronchovascular thickening. 4. Small RIGHT pleural effusion. 5. Partially visualized liver metastasis with lymphadenopathy in the upper abdomen. 6. Sclerotic lesion L2 vertebral body appears stable compared to the outside examination presumably metastatic. 7. Prior RIGHT nephrectomy ? Currently in mild respiratory distress intercostal retractions, using accessory muscles, nasal flaring, on 3 L ? Plan ? Monitor in the intensive care unit, ? Will obtain ABG, Pro-David, CRP, D-dimer, troponin series -As patient is chronically on dexamethasone, immunocompromise state, will give stress dose hydrocortisone ? Vancomycin ? Meropenem, ? Follow respiratory viral panel ? Follow blood cultures ? Monitor respiratory status closely will consider BiPAP ? Continue Cardizem drip ? Start heparin drip ? D-dimer, venous ultrasound for DVT ? If blood pressures allow 1 dose of IV Lasix 40 mg ? Place PICC line, due to shock might require pressors such as Levophed A-fib with RVR ? As above Systolic CHF exacerbation ? Cardiac echo ? As above Non-ST elevation myocardial infarction ? Type I versus type II ? Serial EKGs, serial troponins, telemetry monitoring Shock ? Likely multifactorial from sepsis, A-fib with RVR, ? Will avoid fluid therapy given given elevated BNP fluid overload ? Will likely start Levophed History of metastatic renal cell carcinoma ? With metastasis to brain on dexamethasone, metastasis to bone, metastasis to lung Advanced COPD Current smoker Protein calorie malnutrition, physical deconditioning, consult dietary Attestations 2 Medical Necessity Statement*: Patient requires hospitalization for pneumonia, postobstructive pneumonia, acute hypoxic respiratory failure, A-fib with RVR, shock, systolic CHF, metastatic renal cell carcinoma, lung mass Coding Level of Care Code Critical Care >/= 30 minutes Critical care time (in minutes): 45 The high probability of a clinically significant, sudden or life threatening deterioration, as referenced in this documentation, required my full and direct attention, intervention and personal management. The critical care time shown is in addition to time spent performing any reported separately billable procedures and includes the following: [x] Data and vital sign review and interpretation [x ] Patient assessment, examination and intervention [x] Medication orders and management [x] Patient/Family updates as able [x] Care Coordination and Documentation. Diagnoses Acute hypoxic respiratory failure J96.01 Shock R57.9 Atrial fibrillation with rapid ventricular response I48.91 Metastatic renal cell carcinoma C64.9 Sepsis A41.9 Pneumonia J18.9 Smoker F17.200 Postobstructive pneumonia J18.9 Systolic CHF, acute I50.21 Acute exacerbation of CHF (congestive heart failure) I50.9 Physical deconditioning R53.81 Protein calorie malnutrition E46 Lung mass R91.8 NSTEMI (non-ST elevated myocardial infarction) I21.4 Immunocompromised due to corticosteroids D84.821; T38.0X5A; Z79.52 COPD exacerbation J44.1
[2023-05-07 14:41] LABS: Erythrocyte Sedimentation Rate 21 mm/hr (0-10)
[2023-05-07 14:57] LABS: D Dimer 2.04 ug/mLFEU (0-0.59)
[2023-05-07 15:11] LABS: Cortisol Random 18.11 ug/dL (2.47-19.5); Procalcitonin 0.13 ng/mL (0-0.5)
[2023-05-07 15:28] LABS: ABG PCO2 45.3 mmHg (35-45); ABG PH Result 7.36 (7.35-7.45); Arterial Blood Gas Hematocrit 31.5 % (42-52); Base Excess ABG 0.1 mmol/L (-2.0-2.0); Blood Gas Allen Test Pos; Blood Gas Operator Identificat CAK; Blood Gas Sample Site Brachial, left; Blood Gas Sample Type Arterial; HCO3 ABG 25.7 mmol/L (22-26); Oxygen Device NC; PO2 ABG 55.8 mmHg (80.0-100.0); PO2 FiO2 Ratio Arterial Blood 0
--- NOTE | 2023-05-07 15:29 | PC.RESP ---
UNABLE TO DO ABG LATE DUE TO ULTRASOUND BEING DONE
--- NOTE | 2023-05-07 16:40 | ECG_ITS ---
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 Measurements Intervals [place] Rate: 83 P: 0 MA: 0 QRS: 118 QRSD: 111 T: 251 QT: 332 QTc: 390 Interpretive Statements ATRIAL FLUTTER INCOMPLETE RIGHT BUNDLE BRANCH BLOCK [90+ ms QRS DURATION, TERMINAL R IN V1/V2, 40+ ms S IN I/aVL/V4/V5/V6] POSSIBLE RIGHT VENTRICULAR HYPERTROPHY [SOME/ALL OF: PROMINENT R IN V1, LATE TRANSITION, RAD, CLAIRE, SSS] ST DEVIATION AND MODERATE T-WAVE ABNORMALITY, CONSIDER LATERAL ISCHEMIA [-0.1+ mV T-WAVE IN I/aVL/V5/V6] ST DEVIATION AND MODERATE T-WAVE ABNORMALITY, CONSIDER INFERIOR ISCHEMIA [-0.1+ mV T-WAVE IN II/aVF] Compared to ECG 05/07/2023 12:31:53 No significant changes Electronically Signed On 05-08-2023 8:39:10 CDT by Jamal Garcia M.D. [id number]
[2023-05-07] MEDS: midodrine 5 mg TABLET PO ×2 (16:48→23:36)
[2023-05-07] MEDS: FUROsemide 10 mg/mL SDV 4mL 40 MG IVP (16:48)
[2023-05-07] MEDS: hydrocortisone 100 mg/2 mL SDV IVP (16:48)
[2023-05-07] MEDS: dexamethasone 4 mg Tablet PO ×2 (16:48→23:35)
[2023-05-07] MEDS: LORazepam 2 mg/mL INJ 10 mL MDV 1 MG IVP (16:49)
[2023-05-07] MEDS: heparin drip 25,000 UNIT/500 ML PREMIX 2204.4699999999998 UNIT IV (17:07)
[2023-05-07] MEDS: heparin 5,000 unit/mL INJ 1 mL IV (17:17)
[2023-05-07] MEDS: pantoprazole DR 40 mg Tablet PO (17:21)
[2023-05-07 17:30] LABS: Troponin 5 6HR 31.76 ng/L (0-15)
[2023-05-07 17:34] LABS: Troponin 5 6HR Delta -1.24 ng/L (0-12)
[2023-05-07] MEDS: vancomycin 1,500 MG/300 ML PIGGYBACK 200 MG IV (17:56)
[2023-05-07 18:10] LABS: Thyroid Stimulating Hormone 4.64 uIU/mL (0.27-4.20)
[2023-05-07] MEDS: oxyCODONE-APAP 5-325 mg Tablet 1 TAB PO (19:22)
--- NOTE | 2023-05-07 19:25 | PC.NURSE ---
Received patient from ER staff at 1510. Patient is awake and oriented to person, place, time, and situation. Blood pressure 98/78, SPO2: 94% on 3L NC, RR: 18, Temp: 97.1, HR 88 and a flutter. Diltiazem currently running. Started heparin and ordered next PTT. 1mg ativan given for anxiety. 1MG of ativan given for anxiety. Patient became Difficult to wake up and only able to stay awake for a few seconds, but vitals are within normal limits still and he is protecting his airway. Nurse alerted Dr swanson and future doses of ativan were decreased to 0.5mg.
[2023-05-07] MEDS: dilTIAZem 100 MG in sodium chloride 0.9% (add-van) 100 ML 12.5 MG IV (19:42)
[2023-05-07] MEDS: ipratropium-albuterol 3 mL Neb INHALATION (20:23)
[2023-05-07] MEDS: meropenem 1,000 MG in sodium chloride 0.9% (plus) 50 ML 100 MG IV (21:02)
[2023-05-07 23:40] LABS: Partial Thromboplastin Time 63.7 SECONDS (23.9-36.7)
--- NOTE | 2023-05-07 23:44 | PC.NURSE ---
Pt on 1350 units (27 ml/hr) at 1900. Previous entry incorrect.
[2023-05-08] VITALS (52 sets, daily range): BP systolic 80–121; BP diastolic 57–81; PULSE 65–119; RESP 13–27; TEMP 36.6–37.1; O2SAT 87–98
[2023-05-08] MEDS: oxyCODONE-APAP 5-325 mg Tablet 1 TAB PO ×2 (00:33→19:55)
--- NOTE | 2023-05-08 04:00 | USCV_ITS ---
Zhang Escamilla Age: 62 Gender: M : 1960 Exam Date: 05/08/2023 02:47 Ordering Phys: Louis Brown MD Technologist: UDAY [place]am [place] [facility] [place] Indication: admitted for shortness of breath, atrial fibrillation. Stage IV cancer patient is confused, unresponsive in ICU-7 BP: 106 / 57 HR: 74 Rhythm: Atrial fibrillation Technical Quality: Adequate MEASUREMENTS (Male / Female) Normal Values 2D ECHO LV Diastolic Diameter PLAX 4.2 cm 4.2 - 5.9 / 3.9 - 5.3 cm IVS Diastolic Thickness 1.4 cm 0.6 - 1.0 / 0.6 - 0.9 cm IVS Systolic Thickness 1.7 cm LVPW Diastolic Thickness 1.8 cm 0.6 - 1.0 / 0.6 - 0.9 cm LVPW Systolic Thickness 2.0 cm LVOT Diameter 2.0 cm LV Ejection Fraction 2D Teich 55.2 % LV Ejection Fraction MOD 2C 65.2 % LV Ejection Fraction 2C AL 65.7 % LA Diameter 3.7 cm Aorta at Sinotubular Diameter 3.1 cm IVC Diameter 3.1 cm M-MODE LA Ao Ratio MM 1.5 AV Cusp Separation MM 2.3 cm DOPPLER AV Peak Velocity 115.0 cm/s LVOT Peak Velocity 84.0 cm/s AV Area Cont Eq vti 2.7 cm squared AV Area Cont Eq pk 2.3 cm squared MV Area PHT 3.3 cm squared Mitral E to A Ratio 281.0 TV Peak Velocity 266.5 cm/s TR Peak Velocity 268.0 cm/s TR Peak Gradient 28.7 mmHg TV Peak E Velocity 47.0 cm/s Right Atrial Pressure 10.0 mmHg Pulmonary Artery Systolic Pressu 38.7 mmHg PV Peak Velocity 91.0 cm/s FINDINGS Left Ventricle Left ventricle is normal in size. LV systolic function is normal with EF of 55 to 60%. No regional wall motion abnormalities are seen. Diastolic function is indeterminate because of atrial fibrillation. Right Ventricle Normal in size and function Right Atrium Normal in size Left Atrium Normal in size Mitral Valve Structurally normal mitral valve. Trace mitral regurgitation. Aortic Valve Aortic valve is thickened. No significant stenosis. Tricuspid Valve Mild tricuspid regurgitation. RVSP is 35 to 40 mmHg. This is consistent with mild pulmonary hypertension. Pulmonic Valve Not well visualized Pericardium Grossly normal Aorta Normal in size IVC Dilated CONCLUSIONS LV systolic function is normal with EF of 55 to 60% Diastolic function is indeterminate because of atrial fibrillation. Trace mitral regurgitation. Mild tricuspid regurgitation. Mild pulmonary hypertension IVC is dilated. No comparison studies are available. Jamal Garcia MD (Electronically Signed) Final Date: 08 May 2023 14:06 S
[2023-05-08] MEDS: vancomycin 1,500 MG/300 ML PIGGYBACK 200 MG IV ×2 (04:53→17:35)
[2023-05-08] MEDS: meropenem 1,000 MG in sodium chloride 0.9% (plus) 50 ML 100 MG IV ×3 (04:53→21:09)
[2023-05-08] MEDS: dexamethasone 4 mg Tablet PO ×4 (04:53→21:39)
[2023-05-08] MEDS: morphine ER (12 HR) 15 mg Tablet PO ×2 (05:29→17:34)
[2023-05-08 06:46] LABS: Basophils % 0.1 %; Hematocrit 32.3 % (37-53); Lymphocytes # 0.7 10^3/uL (0.8-4.8); Lymphocytes % 5.2 %; Mean Corpuscular HGB Conc 29.7 g/dL (30-55); Mean Corpuscular Hemoglobin 26.4 pg (27-33); Mean Platelet Volume 9.5 fL (7.4-10.4); Monocytes # 0.6 10^3/uL (0.2-0.9); Monocytes % 4.7 %; Neutrophils # 11.09 10^3/uL (1.8-7.7); Nucleated Red Blood Cells % 0 %; Platelet Count 269 10^3/cmm (157-399); Red Blood Count 3.63 10^6/uL (3.85-5.65); Red Cell Distribution Width 17.5 % (12.1-15.1); White Blood Count 12.45 10^3/uL (3.29-11.43)
[2023-05-08 07:01] LABS: Partial Thromboplastin Time 57.9 SECONDS (23.9-36.7)
[2023-05-08 07:06] LABS: INR 1.14 (0.8-1.2)
[2023-05-08 07:07] LABS: Lactic Sepsis W/Reflex 0.9 mmol/L (0.5-2.2)
[2023-05-08 07:09] LABS: Alanine Aminotransferase 31 U/L (0-41); Albumin Level 2.5 g/dL (3.5-5.2); Alkaline Phosphatase 135 U/L (40-130); Anion Gap 13.5 (5-19); Aspartate Amino Transferase 7 U/L (0-40); Blood Urea Nitrogen 24 mg/dL (8-23); Calcium 7.7 mg/dL (8.5-10.5); Carbon Dioxide 26 mmol/L (22-29); Chloride 105 mmol/L (98-107); Creatinine Clr Calc Pharmacy 136.7361; Globulin 2.5 g/dL (1.3-4.6); Glomerular Filtration Rate 113.9 mL/min (90-130); Glucose 136 mg/dL (65-115); Magnesium 1.6 mg/dL (1.7-2.3); Osmolality Calculated 296 mOsm/kg (285-295); Phosphorus 3.3 mg/dL (2.5-4.5); Potassium 4.5 mmol/L (3.5-5.1); Sodium 140 mmol/L (136-145); Total Bilirubin 0.5 mg/dL (0.15-1.2)
[2023-05-08 07:14] LABS: NT Pro B Type Natriuretic Pept 3308 pg/mL (0-125)
[2023-05-08 07:33] LABS: Estmated Average Glucose 123; Hemoglobin A1C 5.9 % (4.0-6.0)
[2023-05-08] MEDS: midodrine 5 mg TABLET PO ×2 (08:12→15:34)
[2023-05-08] MEDS: pantoprazole DR 40 mg Tablet PO ×2 (08:12→17:34)
[2023-05-08] MEDS: FUROsemide 10 mg/mL SDV 4mL 40 MG IVP (09:40)
[2023-05-08] MEDS: heparin drip 25,000 UNIT/500 ML PREMIX 27 UNIT IV (10:30)
[2023-05-08] MEDS: ipratropium-albuterol 3 mL Neb INHALATION ×2 (11:25→20:21)
--- NOTE | 2023-05-08 13:49 | PC.NURSE ---
Vascular access nurse to ICU for PICC insertion. Pt bedside nurse, Garth, states PICC no longer indicated. Dr. Brown notified. PICC cancelled at this time.
--- NOTE | 2023-05-08 13:59 | P.PN_ITS ---
Subjective 2 Subjective: Patient was seen this morning, he tells me that he can finally lay down, he does not feel so short of breath that he has to sit up, his legs are still edematous, no fevers, no chills overnight no cough, Vitals/I&O/Wt Last Vital Signs Temp 97.9 F 05/08/23 03:30 Pulse 114 H 05/08/23 12:30 Resp 20 H 05/08/23 12:30 BP 99/65 05/08/23 12:00 Pulse Ox 94 05/08/23 12:30 O2 Del Method Nasal Cannula 05/08/23 12:30 O2 Flow Rate 3 05/08/23 12:30 05/07/23 05/08/23 05/08/23 22:59 06:59 14:59 Intake Total 1272.459 / 2422.459 366.166 / 2788.625 360 / 360 Output Total 800 / 800 1650 / 2450 2200 / 2200 Balance 472.459 / 1622.459 -1283.834 / 338.625 -1840 / -1840 Weight last 48 hrs Weight 97 kg Weight 81.647 kg Physical Exam 2 Const: COMMON NORMALS: no acute distress and patient oriented x3 Resp: COMMON NORMALS: normal respiratory effort, No retractions and No use of accessory muscles AUSCULTATION: crackles Cardio: COMMON NORMALS: regular rate, regular rhythm, S1 normal heart sound present and S2 normal heart sound present RATE: regular rate RHYTHM: r egular rhythm HEART SOUNDS: S1 normal heart sound present and S2 normal heart sound present GI: COMMON NORMALS: Normal to inspection, nondistended, normoactive bowel sounds present and non-tender Extremity: NARRATIVE EXTREMITY EXAM: 2+ pitting edema Neuro: COMMON NORMALS: patient oriented x3 Psych: COMMON NORMALS: mental status grossly normal Data 05/08/23 06:31 05/08/23 06:31 Micro: Microbiology 05/07/23 16:50 Blood Culture - Preliminary Blood SPECIMEN COLLECTED 05/07/23 13:55 Blood Culture - Preliminary Blood SPECIMEN COLLECTED A&P Assessment and plan (1) Acute hypoxic respiratory failure: (2) Shock: (3) Atrial fibrillation with rapid ventricular response: (4) Metastatic renal cell carcinoma: (5) Sepsis: (6) Pneumonia: (7) Smoker: (8) Postobstructive pneumonia: (9) Systolic CHF, acute: (10) Acute exacerbation of CHF (congestive heart failure): (11) Physical deconditioning: (12) Protein calorie malnutrition: (13) Lung mass: (14) NSTEMI (non-ST elevated myocardial infarction): (15) Immunocompromised due to corticosteroids: (16) COPD exacerbation: Plan Acute hypoxic respiratory failure, ? Likely multifactorial ? Secondary to postobstructive pneumonia, metastatic renal cell carcinoma to the lung, lung mass, ? Systolic CHF exacerbation, fluid overload, ? A-fib with RVR, ? With history of advanced COPD, on exacerbation ?IMPRESSION: 1. Innumerable pulmonary metastasis in both lungs similar to the prior outside CT 04/08/2023. Some of these appear slightly progressed compared to previous considering differences in technique. 2. Progressed masslike consolidation in the RIGHT lower lobe with central low- attenuation change. This may present dense consolidative pneumonia or necrotic neoplasm. Increased surrounding infiltrate likely postobstructive pneumonia. 3. RIGHT hilar lymphadenopathy with bronchovascular thickening. 4. Small RIGHT pleural effusion. 5. Partially visualized liver metastasis with lymphadenopathy in the upper abdomen. 6. Sclerotic lesion L2 vertebral body appears stable compared to the outside examination presumably metastatic. 7. Prior RIGHT nephrectomy ? Currently in mild respiratory distress intercostal retractions, using accessory muscles, nasal flaring, on 3 L ? Plan ? Monitor in the intensive care unit, -As patient is chronically on dexamethasone, immunocompromise state, will give stress dose hydrocortisone ? Vancomycin ? Meropenem, ? Follow respiratory viral panel ? Follow blood cultures ? Monitor respiratory status closely will consider BiPAP ? Continue Cardizem drip ? Start heparin drip ? D-dimer, venous ultrasound for DVT negative ? Diuresed 4 L, 1 dose IV Lasix 40 mg A-fib with RVR ? As above -Remains in A-fib, rates are well-controlled Systolic CHF exacerbation ? Cardiac echo ? As above Non-ST elevation myocardial infarction ? Type I versus type II ? Serial EKGs, serial troponins, telemetry monitoring Shock, improving, has not required Levophed ? Likely multifactorial from sepsis, A-fib with RVR, ? Will avoid fluid therapy given given elevated BNP fluid overload History of metastatic renal cell carcinoma ? With metastasis to brain on dexamethasone, metastasis to bone, metastasis to lung Advanced COPD Current smoker Protein calorie malnutrition, physical deconditioning, consult dietary Plan for today continue IV antibiotics, continue diuresis, currently on Cardizem drip transition to p.o. Cardizem, start albumin, Attestations 2 Medical Necessity Statement*: Patient requires hospitalization for acute hypoxic respiratory failure secondary to pneumonia, metastatic renal cell carcinoma with systolic CHF, A-fib with RVR, Diagnoses Acute hypoxic respiratory failure J96.01 Shock R57.9 Atrial fibrillation with rapid ventricular response I48.91 Metastatic renal cell carcinoma C64.9 Sepsis A41.9 Pneumonia J18.9 Smoker F17.200 Postobstructive pneumonia J18.9 Systolic CHF, acute I50.21 Acute exacerbation of CHF (congestive heart failure) I50.9 Physical deconditioning R53.81 Protein calorie malnutrition E46 Lung mass R91.8 NSTEMI (non-ST elevated myocardial infarction) I21.4 Immunocompromised due to corticosteroids D84.821; T38.0X5A; Z79.52 COPD exacerbation J44.1
[2023-05-08] MEDS: albumin 25 G/100 ML BAG 60 G IV (15:34)
[2023-05-08] MEDS: dilTIAZem 60 mg Tablet PO ×2 (15:34→19:55)
[2023-05-08 16:20] LABS: Partial Thromboplastin Time 48.5 SECONDS (23.9-36.7)
[2023-05-08 22:03] LABS: Partial Thromboplastin Time > 250.0 SECONDS (23.9-36.7)
--- NOTE | 2023-05-08 22:08 | PC.NURSE ---
PTT: PTT levels came back greater than 250. Dr. Gould was notified and he ordered for Heparin drip to be stopped and to re check PTT levels after 4 hours.
[2023-05-09] VITALS (38 sets, daily range): BP systolic 101–119; BP diastolic 47–79; PULSE 64–108; RESP 13–26; TEMP 36.4–37.1; O2SAT 84–95; BMI 25.8
[2023-05-09] MEDS: midodrine 5 mg TABLET PO ×4 (00:05→23:47)
[2023-05-09] MEDS: LORazepam 2 mg/mL INJ 10 mL MDV 0.5 MG IVP ×2 (00:05→18:30)
[2023-05-09 00:28] LABS: Adenovirus Not Detected (NOT DETECT); Chlamydia Pneumoniae Not Detected (NOT DETECT); Coronavirus 229E,HKU1,NL63,OC4 Not Detected (NOT DETECT); Human Metapneumovirus Not Detected (NOT DETECT); Human Rhinovirus/Enterovirus Not Detected (NOT DETECT); Influenza A Not Detected (NOT DETECT); Influenza A H1 Not Detected (NOT DETECT); Influenza A H1-2009 Not Detected (NOT DETECT); Influenza A H3 Not Detected (NOT DETECT); Influenza B Not Detected (NOT DETECT); Mycoplasma Pneumoniae Not Detected (NOT DETECT); Parainfluenza Virus Type 1 Not Detected (NOT DETECT); Parainfluenza Virus Type 2 Not Detected (NOT DETECT); Parainfluenza Virus Type 3 Not Detected (NOT DETECT); Parainfluenza Virus Type 4 Not Detected (NOT DETECT); Respiratory Syncytial Virus A Not Detected (NOT DETECT); Respiratory Syncytial Virus B Not Detected (NOT DETECT); SARS-COV-2 Not Detected (NOT DETECT)
[2023-05-09 00:49] LABS: Bacteria Urine TRACE /hpf; Bilirubin Urine Neg (Negative); Blood Urine Neg (Negative); Glucose Urine UA Norm (Normal); Ketones Urine Negative (Negative); Leukocyte Esterase Urine Negative (Negative); Mucus Urine TRACE /hpf; Nitrate Urine Negative (Negative); Protein Urine Neg (Negative); RBC Urine 0-4 /hpf (0-2); Squamous Epithelial Cell Urine 0-4 /hpf (0-5); Urine Appearance Clear (CLEAR); Urine Color Yellow (Yellow); Urobilinogen Urine Neg (Negative); WBC Urine 0-4 /hpf (0-5); pH Urine 5 (5-7)
[2023-05-09] MEDS: dilTIAZem 60 mg Tablet PO ×4 (02:08→20:35)
[2023-05-09 02:11] LABS: Partial Thromboplastin Time 28.4 SECONDS (23.9-36.7)
[2023-05-09] MEDS: albumin 25 G/100 ML BAG 60 G IV (02:35)
--- NOTE | 2023-05-09 03:59 | PC.NURSE ---
Heparin Drip protocol restarted per Dr. Gould's orders. Doctor did not want a bolus to be given.
[2023-05-09 04:16] LABS: Basophils % 0.2 %; Hematocrit 31.1 % (37-53); Lymphocytes # 0.5 10^3/uL (0.8-4.8); Lymphocytes % 2.7 %; Mean Corpuscular HGB Conc 29.9 g/dL (30-55); Mean Corpuscular Hemoglobin 26.7 pg (27-33); Mean Corpuscular Volume 89.4 fl (82-101); Mean Platelet Volume 9.4 fL (7.4-10.4); Neutrophils # 17.09 10^3/uL (1.8-7.7); Neutrophils % 90.6 %; Nucleated Red Blood Cells % 0 %; Platelet Count 287 10^3/cmm (157-399); Red Blood Count 3.48 10^6/uL (3.85-5.65); Red Cell Distribution Width 17.5 % (12.1-15.1); White Blood Count 18.87 10^3/uL (3.29-11.43)
[2023-05-09 04:31] LABS: INR 1.02 (0.8-1.2)
[2023-05-09 04:37] LABS: Vancomycin Trough 14.4 ug/mL (10-15)
[2023-05-09 04:39] LABS: Estmated Average Glucose 126; Lactic Sepsis W/Reflex 2.8 mmol/L (0.5-2.2)
[2023-05-09 04:42] LABS: Alanine Aminotransferase 25 U/L (0-41); Albumin Level 3.1 g/dL (3.5-5.2); Alkaline Phosphatase 132 U/L (40-130); Anion Gap 16.1 (5-19); Aspartate Amino Transferase 7 U/L (0-40); Blood Urea Nitrogen 20 mg/dL (8-23); Calcium 7.8 mg/dL (8.5-10.5); Carbon Dioxide 25 mmol/L (22-29); Chloride 104 mmol/L (98-107); Creatinine Clr Calc Pharmacy 136.7361; Globulin 2.4 g/dL (1.3-4.6); Glomerular Filtration Rate 113.9 mL/min (90-130); Glucose 202 mg/dL (65-115); Magnesium 1.3 mg/dL (1.7-2.3); Osmolality Calculated 300 mOsm/kg (285-295); Phosphorus 1.7 mg/dL (2.5-4.5); Potassium 4.1 mmol/L (3.5-5.1); Sodium 141 mmol/L (136-145); Total Bilirubin 0.3 mg/dL (0.15-1.2); Total Protein 5.5 g/dL (6.6-8.7)
[2023-05-09 04:49] LABS: NT Pro B Type Natriuretic Pept 1913 pg/mL (0-125)
[2023-05-09] MEDS: dexamethasone 4 mg Tablet PO ×4 (05:24→23:47)
[2023-05-09] MEDS: vancomycin 1,500 MG/300 ML PIGGYBACK 200 MG IV ×2 (05:24→17:50)
[2023-05-09] MEDS: meropenem 1,000 MG in sodium chloride 0.9% (plus) 50 ML 100 MG IV ×3 (05:24→20:35)
[2023-05-09] MEDS: morphine ER (12 HR) 15 mg Tablet PO ×2 (05:24→17:50)
[2023-05-09 05:54] LABS: Reflex Lactate Order REFLEX LACTIC ORDERD
[2023-05-09] MEDS: oxyCODONE-APAP 5-325 mg Tablet 1 TAB PO ×2 (06:20→16:52)
--- NOTE | 2023-05-09 07:49 | PC.NURSE ---
Patient heard yelling and cussing at lab staff, upon entering patients room patient on the phone with family arraigning transportation home. Patient states, I just haven't been helped here, I need to go to another hospital or leave and come back to this one. Patient educated on risks of leaving against medical advice including possibility of , as well as improvements since admission, patient states, I have lost two weeks of improvement here. Patient pleasant at this time verbalizes understanding of teachings. Dr. Brown notified of patient wishes via telephone.
[2023-05-09] MEDS: pantoprazole DR 40 mg Tablet PO ×2 (08:01→17:50)
[2023-05-09] MEDS: ipratropium-albuterol 3 mL Neb INHALATION ×4 (08:06→20:18)
[2023-05-09] MEDS: FUROsemide 10 mg/mL SDV 4mL 40 MG IVP ×2 (09:57→17:51)
[2023-05-09] MEDS: apixaban 5 mg Tablet PO ×2 (09:58→20:35)
[2023-05-09] MEDS: phosphorus 250 mg Tablet PO ×2 (09:58→17:51)
[2023-05-09] MEDS: magnesium sulfate premix 2 GM/50 ML PIGGYBACK IV (09:58)
--- NOTE | 2023-05-09 14:21 | P.PN_ITS ---
Vitals/I&O/Wt Last Vital Signs Temp 97.6 F 05/09/23 08:30 Pulse 86 05/09/23 14:00 Resp 17 05/09/23 12:00 BP 117/75 05/09/23 12:00 Pulse Ox 93 05/09/23 11:30 O2 Del Method Nasal Cannula 05/09/23 11:30 O2 Flow Rate 2 05/09/23 11:30 05/08/23 05/09/23 05/09/23 22:59 06:59 14:59 Intake Total 1278.817 / 1638.817 0 / 6220.378 2018 / 1032 Output Total 600 / 2800 600 / 3400 1200 / 1200 Balance 678.817 / -1161.183 -600 / -1761.183 -168 / -168 Weight last 48 hrs Weight 93.667 kg Weight 97 kg Physical Exam 2 Const: COMMON NORMALS: no acute distress and patient oriented x3 Resp: COMMON NORMALS: normal respiratory effort, No retractions and No use of accessory muscles AUSCULTATION: crackles and wheezes Cardio: COMMON NORMALS: regular rate, regular rhythm, S1 normal heart sound present and S2 normal heart sound present RATE: regular rate RHYTHM: r egular rhythm HEART SOUNDS: S1 normal heart sound present and S2 normal heart sound present GI: COMMON NORMALS: Normal to inspection, nondistended, normoactive bowel sounds present, Soft to palpation and non-tender PALPATION: Yes Soft to palpation Extremity: NARRATIVE EXTREMITY EXAM: 1+ edema Neuro: COMMON NORMALS: patient oriented x3 Psych: COMMON NORMALS: mental status grossly normal Data 05/09/23 03:52 05/09/23 03:52 Micro: Microbiology 05/07/23 16:50 Blood Culture - Preliminary Blood NEGATIVE TO DATE 05/07/23 13:55 Blood Culture - Preliminary Blood NEGATIVE TO DATE A&P Assessment and plan (1) Acute hypoxic respiratory failure: (2) Shock: (3) Atrial fibrillation with rapid ventricular response: (4) Metastatic renal cell carcinoma: (5) Sepsis: (6) Pneumonia: (7) Smoker: (8) Postobstructive pneumonia: (9) Systolic CHF, acute: (10) Acute exacerbation of CHF (congestive heart failure): (11) Physical deconditioning: (12) Protein calorie malnutrition: (13) Lung mass: (14) NSTEMI (non-ST elevated myocardial infarction): (15) Immunocompromised due to corticosteroids: (16) COPD exacerbation: Plan Acute hypoxic respiratory failure, ? Likely multifactorial ? Secondary to postobstructive pneumonia, metastatic renal cell carcinoma to the lung, lung mass, ? Systolic CHF exacerbation, fluid overload, ? A-fib with RVR, ? With history of advanced COPD, on exacerbation ?IMPRESSION: 1. Innumerable pulmonary metastasis in both lungs similar to the prior outside CT 04/08/2023. Some of these appear slightly progressed compared to previous considering differences in technique. 2. Progressed masslike consolidation in the RIGHT lower lobe with central low- attenuation change. This may present dense consolidative pneumonia or necrotic neoplasm. Increased surrounding infiltrate likely postobstructive pneumonia. 3. RIGHT hilar lymphadenopathy with bronchovascular thickening. 4. Small RIGHT pleural effusion. 5. Partially visualized liver metastasis with lymphadenopathy in the upper abdomen. 6. Sclerotic lesion L2 vertebral body appears stable compared to the outside examination presumably metastatic. 7. Prior RIGHT nephrectomy ? Currently in mild respiratory distress intercostal retractions, using accessory muscles, nasal flaring, on 3 L ? Plan ?move to [facility] [place] -As patient is chronically on dexamethasone, immunocompromise state, will give stress dose hydrocortisone ? Vancomycin ? Meropenem, ? Follow respiratory viral panel ? Follow blood cultures ? Monitor respiratory status closely will consider BiPAP ? Continue Cardizem drip ? switch to eliquis ? D-dimer, venous ultrasound for DVT negative ? Diuresed 2 L, 2 dose IV Lasix 40 mg A-fib with RVR ? As above -Remains in A-fib, rates are well-controlled Systolic CHF exacerbation ? Cardiac echo ? As above Non-ST elevation myocardial infarction ? Type I versus type II ? Serial EKGs, serial troponins, telemetry monitoring Shock, improving, has not required Levophed ? Likely multifactorial from sepsis, A-fib with RVR, ? Will avoid fluid therapy given given elevated BNP fluid overload History of metastatic renal cell carcinoma ? With metastasis to brain on dexamethasone, metastasis to bone, metastasis to lung Advanced COPD Current smoker Protein calorie malnutrition, physical deconditioning, consult dietary Plan for today continue IV antibiotics, continue diuresis, currently on Cardizem drip transition to p.o. Cardizem, start albumin, 2 doses of IV Lasix Attestations 2 Medical Necessity Statement*: Patient requires hospitalization for acute hypoxic respiratory failure secondary to pneumonia, fluid overload requiring IV antibiotics, diuresis 2 doses IV Lasix today continue IV antibiotics continue p.o. Cardizem Diagnoses Acute hypoxic respiratory failure J96.01 Shock R57.9 Atrial fibrillation with rapid ventricular response I48.91 Metastatic renal cell carcinoma C64.9 Sepsis A41.9 Pneumonia J18.9 Smoker F17.200 Postobstructive pneumonia J18.9 Systolic CHF, acute I50.21 Acute exacerbation of CHF (congestive heart failure) I50.9 Physical deconditioning R53.81 Protein calorie malnutrition E46 Lung mass R91.8 NSTEMI (non-ST elevated myocardial infarction) I21.4 Immunocompromised due to corticosteroids D84.821; T38.0X5A; Z79.52 COPD exacerbation J44.1
--- NOTE | 2023-05-09 15:24 | PC.NURSE ---
Patient aggravated and angry wanting to transfer to medical surgical floor as planned, Patient educated on process of room assignment, patient wanting to leave AMA if not transferred immediately. ICU charge nurse notified and spoke with patient, family at bedside states patient wants to go outside and smoke, and provided cigarettes and a apron cleaner to patient. Patient and family educated on safety risks, and apron cleaner sent home with family. Patient refuses nicotine patch and pain medication at this time reporting pain level is over 10 on chart. Patient states he just wants to get up and walk outside for awhile and come back due to being uncomfortable in bed and need to smoke, patient educated that he would need to be leaving the hospital grounds to smoke as [facility] is a tobacco free campus. Patient requested to speak with airport ramp supervisor, and warehouse coordinator Susana HARDING, at bedside to speak with patient and provide room assignment. Patient transferred to room 263 on medical surgical floor, remains in ICU bed as patient refused to transfer to medical surgical bed. All belongings with patient, including cellphone with miniature set builder, denture plate in place, all other belongings in schwartz cloth bag at bedside.
[2023-05-09] MEDS: potassium chloride ER 20 mEq Tablet 40 MEQ PO (17:51)
[2023-05-10] VITALS (15 sets, daily range): BP systolic 100–121; BP diastolic 50–78; PULSE 73–112; RESP 16–20; TEMP 36.3–36.8; O2SAT 87–96
[2023-05-10] MEDS: LORazepam 2 mg/mL INJ 10 mL MDV 0.5 MG IVP (00:17)
[2023-05-10] MEDS: meropenem 1,000 MG in sodium chloride 0.9% (plus) 50 ML 100 MG IV ×3 (04:07→20:36)
[2023-05-10] MEDS: dilTIAZem 60 mg Tablet PO ×4 (04:07→20:36)
[2023-05-10] MEDS: vancomycin 1,500 MG/300 ML PIGGYBACK 200 MG IV (04:43)
[2023-05-10] MEDS: dexamethasone 4 mg Tablet PO ×3 (06:14→17:53)
[2023-05-10] MEDS: morphine ER (12 HR) 15 mg Tablet PO ×2 (06:14→17:54)
[2023-05-10] MEDS: ipratropium-albuterol 3 mL Neb INHALATION ×3 (08:23→15:38)
[2023-05-10 08:38] LABS: Basophils % 0.1 %; Hematocrit 32.3 % (37-53); Lymphocytes # 0.5 10^3/uL (0.8-4.8); Lymphocytes % 2.6 %; Mean Corpuscular Hemoglobin 26.8 pg (27-33); Mean Corpuscular Volume 89.2 fl (82-101); Mean Platelet Volume 9.2 fL (7.4-10.4); Monocytes # 0.9 10^3/uL (0.2-0.9); Monocytes % 5.3 %; Neutrophils # 16.09 10^3/uL (1.8-7.7); Neutrophils % 90.7 %; Nucleated Red Blood Cells % 0 %; Platelet Count 246 10^3/cmm (157-399); Red Blood Count 3.62 10^6/uL (3.85-5.65); Red Cell Distribution Width 17.4 % (12.1-15.1); White Blood Count 17.74 10^3/uL (3.29-11.43)
[2023-05-10] MEDS: apixaban 5 mg Tablet PO ×2 (09:01→20:36)
[2023-05-10] MEDS: pantoprazole DR 40 mg Tablet PO ×2 (09:01→17:53)
[2023-05-10] MEDS: midodrine 5 mg TABLET PO ×2 (09:01→16:11)
[2023-05-10] MEDS: phosphorus 250 mg Tablet PO ×2 (09:01→17:53)
[2023-05-10 09:09] LABS: Alanine Aminotransferase 31 U/L (0-41); Albumin Level 3.1 g/dL (3.5-5.2); Alkaline Phosphatase 138 U/L (40-130); Aspartate Amino Transferase 11 U/L (0-40); Blood Urea Nitrogen 21 mg/dL (8-23); C Reactive Protein 21.3 mg/L (0.0-4.9); Calcium 7.3 mg/dL (8.5-10.5); Carbon Dioxide 29 mmol/L (22-29); Chloride 98 mmol/L (98-107); Globulin 2.7 g/dL (1.3-4.6); Glomerular Filtration Rate 136.1 mL/min (90-130); Glucose 141 mg/dL (65-115); Magnesium 1.5 mg/dL (1.7-2.3); NT Pro B Type Natriuretic Pept 1182 pg/mL (0-125); Osmolality Calculated 291 mOsm/kg (285-295); Sodium 138 mmol/L (136-145); Total Bilirubin 0.5 mg/dL (0.15-1.2); Total Protein 5.8 g/dL (6.6-8.7)
[2023-05-10 09:16] LABS: Creatinine Clr Calc Pharmacy 154.5347
--- NOTE | 2023-05-10 12:16 | PM.PN ---
Subjective Subjective: Patient was seen this morning, no fevers overnight, no chills, does have a slight cough, he is on 1 L currently, Vitals/I&O/Wt Last Vital Signs Temp 97.7 F 05/10/23 07:42 Pulse 76 05/10/23 11:37 Resp 18 05/10/23 11:29 BP 121/78 05/10/23 07:42 Pulse Ox 92 05/10/23 11:29 O2 Del Method Room Air 05/10/23 11:29 O2 Flow Rate 2 05/10/23 04:22 FiO2 2 05/09/23 15:00 05/09/23 05/10/23 05/10/23 22:59 06:59 14:59 Intake Total 814.558 / 1846.558 530 / 2376.558 240 / 240 Output Total 1750 / 3650 800 / 4450 Balance -935.442 / -1803.442 -270 / -2073.442 240 / 240 Weight last 48 hrs Weight 90 kg Weight 93.667 kg Physical Exam Const: COMMON NORMALS: no acute distress and patient oriented x3 Resp: COMMON NORMALS: normal respiratory effort, No retractions and No use of accessory muscles AUSCULTATION: crackles Cardio: COMMON NORMALS: regular rate, regular rhythm, S1 normal heart sound present and S2 normal heart sound present RATE: regular rate RHYTHM: regular rhythm HEART SOUNDS: S1 normal heart sound present and S2 normal heart sound present GI: COMMON NORMALS: Normal to inspection, nondistended, normoactive bowel sounds present and non-tender Extremity: NARRATIVE EXTREMITY EXAM: 1+ pitting edema Neuro: COMMON NORMALS: patient oriented x3 Psych: COMMON NORMALS: mental status grossly normal Data 05/10/23 08:27 05/10/23 08:27 A&P Assessment and plan (1) Acute hypoxic respiratory failure: (2) Shock: (3) Atrial fibrillation with rapid ventricular response: (4) Metastatic renal cell carcinoma: (5) Sepsis: (6) Pneumonia: (7) Smoker: (8) Postobstructive pneumonia: (9) Systolic CHF, acute: (10) Acute exacerbation of CHF (congestive heart failure): (11) Physical deconditioning: (12) Protein calorie malnutrition: (13) Lung mass: (14) NSTEMI (non-ST elevated myocardial infarction): (15) Immunocompromised due to corticosteroids: (16) COPD exacerbation: Plan Acute hypoxic respiratory failure, ? Likely multifactorial ? Secondary to postobstructive pneumonia, metastatic renal cell carcinoma to the lung, lung mass, ? Systolic CHF exacerbation, fluid overload, ? A-fib with RVR, ? With history of advanced COPD, on exacerbation ?IMPRESSION: 1. Innumerable pulmonary metastasis in both lungs similar to the prior outside CT 04/08/2023. Some of these appear slightly progressed compared to previous considering differences in technique. 2. Progressed masslike consolidation in the RIGHT lower lobe with central low-attenuation change. This may present dense consolidative pneumonia or necrotic neoplasm. Increased surrounding infiltrate likely postobstructive pneumonia. 3. RIGHT hilar lymphadenopathy with bronchovascular thickening. 4. Small RIGHT pleural effusion. 5. Partially visualized liver metastasis with lymphadenopathy in the upper abdomen. 6. Sclerotic lesion L2 vertebral body appears stable compared to the outside examination presumably metastatic. 7. Prior RIGHT nephrectomy ? Currently in mild respiratory distress intercostal retractions, using accessory muscles, nasal flaring, on 3 L ? Plan ?[facility] -As patient is chronically on dexamethasone, immunocompromise state, will give stress dose hydrocortisone ? Stop vancomycin ? Meropenem, ? Follow respiratory viral panel so far negative ? Follow blood cultures ? Monitor respiratory status closely will consider BiPAP ? Continue Cardizem 60 mg every 6 ? switch to eliquis ? D-dimer, venous ultrasound for DVT negative ? Continue IV diuresis Lasix 40 mg IV push once today, so far has diuresed 3 L negative A-fib with RVR ? As above -Remains in A-fib, rates are well-controlled Systolic CHF exacerbation ? Cardiac echo ? As above Non-ST elevation myocardial infarction ? Type I versus type II ? Serial EKGs, serial troponins, telemetry monitoring Shock, improving, has not required Levophed ? Likely multifactorial from sepsis, A-fib with RVR, ? Will avoid fluid therapy given given elevated BNP fluid overload History of metastatic renal cell carcinoma ? With metastasis to brain on dexamethasone, metastasis to bone, metastasis to lung Advanced COPD Current smoker Protein calorie malnutrition, physical deconditioning, consult dietary Plan for today continue IV antibiotics, continue diuresis, Attestations Medical Necessity Statement*: Patient requires hospitalization for fluid overload requiring IV diuresis pneumonia requiring IV antibiotics, immunocompromise state Diagnoses Acute hypoxic respiratory failure J96.01 Shock R57.9 Atrial fibrillation with rapid ventricular response I48.91 Metastatic renal cell carcinoma C64.9 Sepsis A41.9 Pneumonia J18.9 Smoker F17.200 Postobstructive pneumonia J18.9 Systolic CHF, acute I50.21 Acute exacerbation of CHF (congestive heart failure) I50.9 Physical deconditioning R53.81 Protein calorie malnutrition E46 Lung mass R91.8 NSTEMI (non-ST elevated myocardial infarction) I21.4 Immunocompromised due to corticosteroids D84.821; T38.0X5A; Z79.52 COPD exacerbation J44.1
[2023-05-10] MEDS: magnesium sulfate premix 1 GM/100 ML PIGGYBACK IV (12:45)
[2023-05-10] MEDS: FUROsemide 10 mg/mL SDV 4mL 40 MG IVP (12:53)
[2023-05-10] MEDS: oxyCODONE-APAP 5-325 mg Tablet 1 TAB PO ×2 (16:11→22:58)
--- NOTE | 2023-05-10 20:43 | PC.NURSE ---
Addendum entered by Ashley Wheatley RN 05/10/23 20:50: Patient yelled Everybody get out!! to this nurse and RT. Original Note: This nurse to room to administer medications and assess patient. Patient was agreeable to taking medications and being assessed. He then requested pain medication; this nurse offered percocet from the PRN list. The patient became verbally agitated and stated No, I don't take percocet! It's another one I take that starts with a P! This nurse then asked the patient if he remembered the full name of the medication and he stated No, are you telling me none of you people remember what I take? Not even me? That's why I can't trust you fuckers. This nurse then apologized. The patient then called a family member who stated he takes morphine at home. The patient then stated Fucking morphine!! That's it, I can't believe you people can't even remember! This nurse then attempted verbal de-escalation. The patient refused his assessment, breathing treatment from RT, and stated he was going leave since you people are being assholes . Call light in reach at this time.
[2023-05-11] VITALS (11 sets, daily range): BP systolic 109–120; BP diastolic 67–74; PULSE 75–104; RESP 16–22; TEMP 36.3–36.6; O2SAT 90–93; BMI 24.6
[2023-05-11] MEDS: dexamethasone 4 mg Tablet PO ×3 (00:38→17:39)
[2023-05-11] MEDS: midodrine 5 mg TABLET PO ×2 (00:39→09:06)
[2023-05-11 02:54] LABS: Basophils % 0.2 %; Hematocrit 32.7 % (37-53); Lymphocytes # 0.4 10^3/uL (0.8-4.8); Lymphocytes % 2.5 %; Mean Corpuscular HGB Conc 30.6 g/dL (30-55); Mean Corpuscular Hemoglobin 27.2 pg (27-33); Mean Corpuscular Volume 89.1 fl (82-101); Monocytes # 1.3 10^3/uL (0.2-0.9); Monocytes % 7.3 %; Neutrophils # 15.03 10^3/uL (1.8-7.7); Neutrophils % 88.1 %; Nucleated Red Blood Cells % 0 %; Platelet Count 258 10^3/cmm (157-399); Red Blood Count 3.67 10^6/uL (3.85-5.65); Red Cell Distribution Width 17.5 % (12.1-15.1); White Blood Count 17.05 10^3/uL (3.29-11.43)
[2023-05-11] MEDS: oxyCODONE-APAP 5-325 mg Tablet 1 TAB PO (03:14)
[2023-05-11] MEDS: dilTIAZem 60 mg Tablet PO ×2 (03:15→09:06)
[2023-05-11 03:16] LABS: Magnesium 1.6 mg/dL (1.7-2.3)
[2023-05-11] MEDS: LORazepam 2 mg/mL INJ 10 mL MDV 0.5 MG IVP (03:26)
[2023-05-11 03:28] LABS: Anion Gap 16.3 (5-19); Blood Urea Nitrogen 29 mg/dL (8-23); Calcium 7.1 mg/dL (8.5-10.5); Carbon Dioxide 31 mmol/L (22-29); Chloride 98 mmol/L (98-107); Creatinine Clr Calc Pharmacy 132.4583; Glomerular Filtration Rate 113.9 mL/min (90-130); Glucose 130 mg/dL (65-115); NT Pro B Type Natriuretic Pept 1166 pg/mL (0-125); Osmolality Calculated 300 mOsm/kg (285-295); Potassium 4.3 mmol/L (3.5-5.1); Sodium 141 mmol/L (136-145)
[2023-05-11] MEDS: morphine ER (12 HR) 15 mg Tablet PO ×2 (05:59→17:39)
[2023-05-11] MEDS: meropenem 1,000 MG in sodium chloride 0.9% (plus) 50 ML 100 MG IV ×2 (05:59→14:33)
[2023-05-11] MEDS: ipratropium-albuterol 3 mL Neb INHALATION ×3 (08:08→15:45)
[2023-05-11] MEDS: pantoprazole DR 40 mg Tablet PO ×2 (09:06→17:39)
[2023-05-11] MEDS: phosphorus 250 mg Tablet PO ×2 (09:06→17:39)
[2023-05-11] MEDS: apixaban 5 mg Tablet PO (09:07)
--- NOTE | 2023-05-11 11:45 | PM.PN ---
Subjective Subjective: Patient is asking to go home he is also complaining of the shortness of breath. He also describes anxiety. Note: While when I was talking to the patient about his understanding of his diagnosis patient shared that he did not understand his diagnosis and was getting angry with me. He said his son was on the way at 11 AM and was going to talk to me however it is 5:41 PM and the son has not arrived we have also tried numerous times to call him and get that his voicemail is not set up. I met later this afternoon to talk with the patient we went over his progress note from the oncologist. I translated the medical jargon for him and wrote on the paper. He was much more calm and he apologized for his previous behavior. Vitals/I&O/Wt Last Vital Signs Temp 97.3 F L 05/11/23 11:35 Pulse 80 05/11/23 11:35 Resp 19 H 05/11/23 11:35 BP 109/67 05/11/23 11:35 Pulse Ox 93 05/11/23 11:35 O2 Del Method Nasal Cannula 05/11/23 11:35 O2 Flow Rate 2 05/11/23 08:09 FiO2 2 05/09/23 15:00 05/10/23 05/11/23 05/11/23 22:59 06:59 14:59 Intake Total 1510 / 2380 480 / 2860 530 / 530 Output Total 350 / 1800 Balance 1160 / 580 480 / 1060 530 / 530 Weight last 48 hrs Weight 89.448 kg Weight 90 kg Physical Exam Narrative: On second evaluation patient is calm his oxygen is off he is not short of breath his pulse ox is 93 to 94% Heart is regular normal S1-S2 without murmurs clicks gallops or rubs Lungs diminished breath sounds in the right base otherwise clear no wheezes or rhonchi Abdomen flat soft nontender nondistended positive bowel sounds no hepatosplenomegaly Extremities +1-2 pitting edema edema to just under the knee. Data 05/11/23 02:29 05/11/23 02:29 A&P Assessment and plan (1) Acute hypoxic respiratory failure: Resolved. Patient is on usual nasal cannula at 2 to 3 L. (2) Shock: Resolved. Noted that patient was on Cardizem 60 mg every 6 hours and midodrine. It appears that at home he was on metoprolol and midodrine. Changed order to lower dose Cardizem and discontinue midodrine and follow. (3) Atrial fibrillation with rapid ventricular response: (4) Metastatic renal cell carcinoma: Status post nephrectomy in 2013 Qualifiers: Laterality: right Qualified Code(s): C64.1 - Malignant neoplasm of right kidney, except renal pelvis (5) Sepsis: Qualifiers: Acute respiratory failure type: with hypoxia Sepsis acute organ dysfunction status: with acute organ dysfunction Sepsis type: sepsis due to unspecified organism Severe sepsis acute organ dysfunction type: acute respiratory failure Severe sepsis shock status: without septic shock Qualified Code(s): A41.9 - Sepsis, unspecified organism; R65.20 - Severe sepsis without septic shock; J96.01 - Acute respiratory failure with hypoxia (6) Pneumonia: With likely postobstructive pneumonia Qualifiers: Laterality: right Lung location: lower lobe of lung Pneumonia type: due to unspecified organism Qualified Code(s): J18.9 - Pneumonia, unspecified organism (7) Smoker: Tells me he quit in December Currently on nicotine patch (8) Postobstructive pneumonia: (9) Systolic CHF, acute: (10) Acute exacerbation of CHF (congestive heart failure): Qualifiers: Heart failure type: unspecified Qualified Code(s): I50.9 - Heart failure, unspecified (11) Physical deconditioning: (12) Protein calorie malnutrition: Qualifiers: Protein-calorie malnutrition severity: unspecified severity Qualified Code(s): E46 - Unspecified protein-calorie malnutrition (13) Lung mass: Cancer versus infiltrate (14) Immunocompromised due to corticosteroids: Was on dexamethasone 4 mg every 6 hours suspected for brain metastasis will decrease to once a day (15) COPD exacerbation: (16) Hypomagnesemia: (17) Hypophosphatemia: (18) Anxiety: Coding Level of Care Code Acute Code for [facility] Fwd Diagnoses Acute hypoxic respiratory failure J96.01 Shock R57.9 Atrial fibrillation with rapid ventricular response I48.91 Renal cell carcinoma of right kidney metastatic to other site C64.1 Laterality: right Sepsis with acute hypoxic respiratory failure without septic shock, due to unspecified organism A41.9; R65.20; J96.01 Acute respiratory failure type: with hypoxia Sepsis acute organ dysfunction status: with acute organ dysfunction Sepsis type: sepsis due to unspecified organism Severe sepsis acute organ dysfunction type: acute respiratory failure Severe sepsis shock status: without septic shock Pneumonia of right lower lobe due to infectious organism J18.9 Laterality: right Lung location: lower lobe of lung Pneumonia type: due to unspecified organism Smoker F17.200 Postobstructive pneumonia J18.9 Systolic CHF, acute I50.21 Acute on chronic congestive heart failure, unspecified heart failure type I50.9 Heart failure type: unspecified Physical deconditioning R53.81 Protein-calorie malnutrition, unspecified severity E46 Protein-calorie malnutrition severity: unspecified severity Lung mass R91.8 Immunocompromised due to corticosteroids D84.821; T38.0X5A; Z79.52 COPD exacerbation J44.1 Hypomagnesemia E83.42 Hypophosphatemia E83.39 Anxiety F41.9
[2023-05-11] MEDS: FUROsemide 10 mg/mL SDV 4mL 40 MG IVP (12:13)
[2023-05-11] MEDS: magnesium sulfate premix 2 GM/50 ML PIGGYBACK IV (12:13)
[2023-05-11] MEDS: dilTIAZem 30 mg Tablet PO (16:08)
--- NOTE | 2023-05-11 18:20 | P.DS_ITS ---
Discharge Providers Date of Admission: 05/07/23 14:45 Date of Discharge: May 11, 2023 Attending Provider at Admission: Louis Brown MD Attending Provider at Discharge: Eddie Loera DO Diagnoses at Discharge Discharge Diagnosis (1) Acute hypoxic respiratory failure: Status: Resolved (2) Shock: Status: Resolved (3) Atrial fibrillation with rapid ventricular response: Status: Resolved (4) Metastatic renal cell carcinoma: Status: Chronic Qualifiers: Laterality: right Qualified Code(s): C64.1 - Malignant neoplasm of right kidney, except renal pelvis (5) Sepsis: Status: Acute Qualifiers: Acute respiratory failure type: with hypoxia Sepsis acute organ dysfunction status: with acute organ dysfunction Sepsis type: sepsis due to unspecified organism Severe sepsis acute organ dysfunction type: acute respiratory failure Severe sepsis shock status: without septic shock Qualified Code(s): A41.9 - Sepsis, unspecified organism; R65.20 - Severe sepsis without septic shock; J96.01 - Acute respiratory failure with hypoxia (6) Pneumonia: Status: Acute Qualifiers: Laterality: right Lung location: lower lobe of lung Pneumonia type: due to unspecified organism Qualified Code(s): J18.9 - Pneumonia, unspecified organism (7) Smoker: Status: Acute Permanent problem details: 1PPD (8) Postobstructive pneumonia: Status: Acute (9) Systolic CHF, acute: Status: Acute (10) Acute exacerbation of CHF (congestive heart failure): Status: Acute Qualifiers: Heart failure type: unspecified Qualified Code(s): I50.9 - Heart failure, unspecified (11) Physical deconditioning: Status: Acute (12) Protein calorie malnutrition: Status: Acute Qualifiers: Protein-calorie malnutrition severity: unspecified severity Qualified Code(s): E46 - Unspecified protein-calorie malnutrition (13) Lung mass: Status: Acute (14) Immunocompromised due to corticosteroids: Status: Chronic (15) COPD exacerbation: Status: Acute (16) Hypomagnesemia: Status: Acute (17) Hypophosphatemia: Status: Acute (18) Anxiety: Status: Acute Reason for Visit Reason for Visit: SOB Hospital Course Hospital Course Patient came to the hospital with shortness of breath including orthopnea paroxysmal nocturnal dyspnea. He admits to fatigue and malaise. In the emergency room he was hypotensive tachycardic with A-fib with RVR. He was initially started on IV amiodarone drip then transition to Cardizem due to low blood pressure. Eventually this stabilized and he required continued low-dose Cardizem and with the addition of midodrine. On CT chest he was found to have postobstructive pneumonia in the right lower lobe with the previously seen diffuse metastatic disease. New to this exam showed test assist in the liver. The sclerotic metastatic lesion of L2 was seen as previous. Patient was treated with IV antibiotics oxygen electrolyte replacement. Today when I met the patient he was very anxious wanting to go home but he admitted that he really did not understand his cancer diagnosis. Later when he was, I reviewed with him his diagnosis and went over progress note by oncology. He denied understanding that he had a terminal condition he denied understanding that it was renal cell carcinoma he thought he had separate cancers. This is all been clarified and also reviewed with son who came to pick the patient up for discharge. Changes that I made: 1. Due to anxiety I decreased the Decadron from 4 mg every 6 hours to every 12 hours and recommend weaning to 2 to 4 mg once daily. 2. Change Cardizem to once daily with lowering of the dose and discontinuation of midodrine. #3. Added Lasix today with good results. He was able to take his oxygen off and maintaining O2 sats of 93 to 94% I had spoken with Dr. Tran about the patient's postobstructive pneumonia. I reported that he has good pain control of his L2 lesion. Recommend XRT to right lower lobe for postobstructive pneumonia. Unfortunately the patient and family were unable to arrive at a decision before office hours concluded and I have asked the patient to call to arrange. I also recommended patient's start the immunotherapy that was sent to his home as prescribed. I did speak to him about hospice care if patient is unable to tolerate chem oimmunotherapy and radiation. I am hopeful that once the pneumonia can be treated and he continues to take Lasix as prescribed that he will tolerate palliative chemo and immunotherapy. Physical Exam Narrative: Thin tall male mostly edentulous in no acute distress this afternoon. Neck: No JVD carotid bruits or lymphadenopathy Heart: Normal S1-S2 without murmurs clicks gallops or rubs Lungs: Diminished breath sounds with poor expiratory phase no breath sounds heard in the right lower lobe posteriorly Abdomen flat soft nontender nondistended positive bowel sounds large horizontal scar from the right nephrectomy 2013 Extremities: +1 pitting edema two thirds of the way up the bilateral legs Discharge Data Studies Completed and Pending Completed Studies During Hospitalization Category Date Time Status CT chest wo con [id number] Stat Cat Scan 05/07/23 11:12 Completed XR chest 1V [id number] Stat Exams 05/07/23 10:15 [place] [id number] Stat Ultrasound 05/07/23 14:29 Completed CV. echo complete* [id number] Stat Ultrasound 05/08/23 04:00 Completed Pending at discharge Category Date Time Status Basic Metabolic Panel AM LABS Lab 05/12/23 04:00 Ordered Blood Culture Stat Lab 05/07/23 16:50 Results Magnesium AM LABS Lab 05/12/23 04:00 Ordered Phosphorus AM LABS Lab 05/12/23 04:00 Ordered Laboratory Results WBC 17.05 10^3/uL (3.29-11.43) H 05/11/23 02:29 RBC 3.67 10^6/uL (3.85-5.65) L 05/11/23 02:29 Hgb 10.00 g/dL (11.27-16.99) L 05/11/23 02:29 Hct 32.7 % (37-53) L 05/11/23 02:29 MCV 89.1 fl (82-101) 05/11/23 02:29 MCH 27.2 pg (27-33) 05/11/23 02:29 MCHC 30.6 g/dL (30-55) 05/11/23 02:29 RDW 17.5 % (12.1-15.1) H 05/11/23 02:29 Plt Count 258 10^3/cmm (157-399) 05/11/23 02:29 MPV 9.0 fL (7.4-10.4) 05/11/23 02:29 Neut % (Auto) 88.1 % 05/11/23 02:29 Lymph % (Auto) 2.5 % 05/11/23 02:29 [place] % (Auto) 7.3 % 05/11/23 02:29 Eos % (Auto) 0.0 % 05/11/23 02:29 Baso % (Auto) 0.2 % 05/11/23 02:29 Neut # (Auto) 15.03 10^3/uL (1.8-7.7) H 05/11/23 02:29 Lymph # (Auto) 0.4 10^3/uL (0.8-4.8) L 05/11/23 02:29 [place] # (Auto) 1.3 10^3/uL (0.2-0.9) H 05/11/23 02:29 Eos # (Auto) 0.0 10^3/uL (0.0-0.8) 05/11/23 02:29 Baso # (Auto) 0.0 10^3/uL (0.0-0.1) 05/11/23 02:29 Nucleated RBC % (auto) 0 % 05/11/23 02: Nucleated RBCs # 0.0 /100WBC 05/11/23 02: ESR 21 mm/hr (0-10) H 05/07/23 10:15 PT 13.70 SECONDS (12.1-14.9) 05/09/23 03:52 INR 1.02 (0.8-1.2) 05/09/23 03:52 APTT 28.4 SECONDS (23.9-36.7) D 05/09/23 01:53 D-Dimer 2.04 ug/mLFEU (0-0.59) H 05/07/23 10:15 Specimen Type Arterial 05/07/23 15:16 Sample Site Brachial, left 05/07/23 15:16 ABG pH 7.36 (7.35-7.45) 05/07/23 15:16 ABG pCO2 45.3 mmHg (35-45) H 05/07/23 15:16 ABG pO2 55.8 mmHg (80.0-100.0) L 05/07/23 15:16 ABG PO2/FiO2 Ratio 0 05/07/23 15:16 ABG HCO3 25.7 mmol/L (22-26) 05/07/23 15:16 ABG Base Excess 0.1 mmol/L (-2.0-2.0) 05/07/23 15:16 Duy Test Pos 05/07/23 15:16 Hematocrit 31.5 % (42-52) L 05/07/23 15:16 O2 Delivery Device Nc 05/07/23 15:16 O2 Liters/Min 2.0 % 05/07/23 15:16 FiO2 28.0 % 05/07/23 15:16 Internal Sales Engineer ID Cak 05/07/23 15:16 Sodium 141 mmol/L (136-145) 05/11/23 02:29 Potassium 4.3 mmol/L (3.5-5.1) 05/11/23 02:29 Chloride 98 mmol/L (98-107) 05/11/23 02:29 Carbon Dioxide 31 mmol/L (22-29) H 05/11/23 02:29 Anion Gap 16.3 (5-19) 05/11/23 02:29 BUN 29 mg/dL (8-23) H 05/11/23 02:29 Creatinine 0.7 mg/dL (0.7-1.2) 05/11/23 02:29 GFR Calculation 113.9 mL/min (90-130) 05/11/23 02:29 Glucose 130 mg/dL (65-115) H 05/11/23 02:29 Estimat Average Glucose 126 05/09/23 03:52 Hemoglobin A1c 6.0 % (4.0-6.0) 05/09/23 03:52 Calculated Osmolality 300 mOsm/kg (285-295) H 05/11/23 02:29 Lactic Acid 2.8 mmol/L (0.5-2.2) H 05/09/23 03:52 Calcium 7.1 mg/dL (8.5-10.5) L 05/11/23 02:29 Phosphorus 1.7 mg/dL (2.5-4.5) L 05/09/23 03:52 Magnesium 1.6 mg/dL (1.7-2.3) L 05/11/23 02:29 Total Bilirubin 0.5 mg/dL (0.15-1.2) 05/10/23 08:27 AST 11 U/L (0-40) 05/10/23 08:27 ALT 31 U/L (0-41) 05/10/23 08:27 Alkaline Phosphatase 138 U/L (40-130) H 05/10/23 08:27 Troponin T Baseline 33 ng/L (0-15) H 05/07/23 10:15 Troponin T 120 Minute 34.50 ng/L (0-15) H 05/07/23 12:09 Delta Troponin T 1.50 ABS# (0-10) 05/07/23 12:09 Troponin T Hi Sens 6Hr 31.76 ng/L (0-15) H 05/07/23 16:50 Troponin T Hi Sens 6Hr Delta -1.24 ng/L (0-12) L 05/07/23 16:50 C-Reactive Protein 21.3 mg/L (0.0-4.9) H 05/10/23 08:27 NT-Pro-B Natriuret Pep 1166 pg/mL (0-125) H 05/11/23 02:29 Total Protein 5.8 g/dL (6.6-8.7) L 05/10/23 08:27 Albumin 3.1 g/dL (3.5-5.2) L 05/10/23 08:27 Globulin 2.7 g/dL (1.3-4.6) 05/10/23 08:27 Procalcitonin 0.13 ng/mL (0-0.5) 05/07/23 10:15 TSH 4.64 uIU/mL (0.27-4.20) H 05/07/23 16:50 Random Cortisol 18.11 ug/dL (2.47-19.5) 05/07/23 10:15 Urine Color Yellow (Yellow) 05/09/23 00:12 Urine Appearance Clear (CLEAR) 05/09/23 00:12 Urine pH 5 (5-7) 05/09/23 00:12 Ur Specific [place] 1.010 (1.005-1.030) 05/09/23 00:12 Urine Protein Neg (Negative) 05/09/23 00:12 Urine Glucose (UA) Norm (Normal) 05/09/23 00:12 Urine Ketones Negative (Negative) 05/09/23 00:12 Urine Blood Neg (Negative) 05/09/23 00:12 Urine Nitrate Negative (Negative) 05/09/23 00:12 Urine Bilirubin Neg (Negative) 05/09/23 00:12 Urine Urobilinogen Neg mg/dL (Negative) 05/09/23 00:12 Ur Leukocyte Esterase Negative (Negative) 05/09/23 00:12 Urine RBC 0-4 /hpf (0-2) H 05/09/23 00:12 Urine WBC 0-4 /hpf (0-5) H 05/09/23 00:12 Ur Squamous Epith Cells 0-4 /hpf (0-5) H 05/09/23 00:12 Amorphous Sediment Not Reportable 05/09/23 00:12 Urine Bacteria Trace /hpf (NONE) 05/09/23 00:12 Urine Mucus Trace /hpf 05/09/23 00:12 Vancomycin Trough 14.4 ug/mL (10-15) 05/09/23 03:52 Adenovirus (PCR) Not detected (NOT DETECT) 05/08/23 22:37 C. pneumoniae DNA (PCR) Not detected (NOT DETECT) 05/08/23 22:37 Coronavirus 229E (PCR) Not detected (NOT DETECT) 05/08/23 22:37 Human Metapneumovir PCR Not detected (NOT DETECT) 05/08/23 22:37 Influenza A (H1) PCR Not detected (NOT DETECT) 05/08/23 22:37 Influ A (H1/09) PCR Not detected (NOT DETECT) 05/08/23 22:37 Influenza A (H3) PCR Not detected (NOT DETECT) 05/08/23 22:37 Influenza Type A Ag negative (Negative) 05/07/23 10:41 Influenza Type A (PCR) Not detected (NOT DETECT) 05/08/23 22:37 Influenza Type B Ag negative (Negative) 05/07/23 10:41 Influenza Type B (PCR) Not detected (NOT DETECT) 05/08/23 22:37 M. pneumoniae (PCR) Not detected (NOT DETECT) 05/08/23 22:37 Parainfluenza 1 (PCR) Not detected (NOT DETECT) 05/08/23 22:37 Parainfluenza 2 (PCR) Not detected (NOT DETECT) 05/08/23 22:37 Parainfluenza 3 (PCR) Not detected (NOT DETECT) 05/08/23 22:37 Parainfluenza 4 (PCR) Not detected (NOT DETECT) 05/08/23 22:37 RSV Type A (PCR) Not detected (NOT DETECT) 05/08/23 22:37 RSV Type B (PCR) Not detected (NOT DETECT) 05/08/23 22:37 Entero/Rhino (PCR) Not detected (NOT DETECT) 05/08/23 22:37 SARS-CoV-2 (PCR) Not detected (NOT DETECT) 05/08/23 22:37 Vitals Last Vital Signs Temp 97.9 F 05/11/23 18:05 Pulse 93 05/11/23 18:05 Resp 22 H 05/11/23 18:05 BP 109/69 05/11/23 18:05 Pulse Ox 90 05/11/23 18:05 O2 Del Method Nasal Cannula 05/11/23 16:45 O2 Flow Rate 2 05/11/23 15:46 FiO2 2 05/09/23 15:00 Discharge Plan Discharge Patient Disposition: Home Condition: Stable Prescriptions: New dexamethasone 4 mg Tablet 4 mg PO Q12H Qty: 30 0RF nicotine 21 mg/24 hr Patch 24 Hour 1 patch transdermal DAILY Qty: 1 0RF DILT-XR 180 mg Capsule,Ext.Rel 24h Degradable 180 mg PO Q24H Qty: 30 0RF cefdinir 300 mg capsule 300 mg PO BID 10 Days Qty: 20 0RF Lasix 40 mg tablet 40 mg PO DAILY Qty: 30 0RF Continued morphine 15 mg tablet extended release 15 mg PO Q12H oxycodone-acetaminophen 5-325 mg tablet 1 tab PO Q6H PRN (Reason: break through pain) prochlorperazine maleate 10 mg tablet 10 mg PO Q6H PRN (Reason: nausea or vomiting) Eliquis 5 mg tablet 5 mg PO BID pantoprazole 40 mg tablet,delayed release (DR/EC) 40 mg PO BID axitinib 5 mg tablet 5 mg PO BID Qty: 60 11RF metoprolol tartrate 100 mg tablet 100 mg PO BID nystatin 100,000 unit/mL suspension 10 ml PO BID fluconazole 150 mg tablet 150 mg PO DAILY Rx Instructions: X3 DAYS Narcan 4 mg/actuation [place],Non-Aerosol See Rx Instructions .ROUTE .COMPLEX Rx Instructions: [place] 1 dose into ONE nostril; alternate nostrils w each dose until help arrives Discontinued midodrine 5 mg tablet 5 mg PO Q8H dexamethasone 4 mg tablet 4 mg PO Q6H Discharge Orders: Discharge Order (Routine); Ordered 05/11/23 Ordered By: Eddie Loera Referrals: Swapnil Acosta [Referring] - 05/15/23 1:20 pm Discharge Diet: Usual diet Discharge Activity: Increase activity as tolerated Patient Instructions: Furosemide (By mouth), Dexamethasone (By mouth), Cefdinir (By mouth), Opioid Safety Activity Restrictions/Additional Instructions: Call Dr. Tran, radiation oncologist to change radiation site to lung mass with post-obstructive pneumonia. Weigh yourself daily, if increase by 2-3 lbs, call your PCP to increase lasix dose. check BP and record. Review with PCP Discharge Attestations Time Spent in Discharge Care*: greater than 30 min Specific Discharge Activities: educating patient, educating and/or supporting family/caregiver, discussing with pcp/other providers, documenting/other paperwork and evaluating patient/reviewing data Quality Metrics Clinical Quality Measures [ No reported AMI, CVA or VTE this stay] Coding Level of Care Code Acute Code for Chg Fwd Diagnoses Acute hypoxic respiratory failure J96.01 Shock R57.9 Atrial fibrillation with rapid ventricular response I48.91 Renal cell carcinoma of right kidney metastatic to other site C64.1 Laterality: right Sepsis with acute hypoxic respiratory failure without septic shock, due to unspecified organism A41.9; R65.20; J96.01 Acute respiratory failure type: with hypoxia Sepsis acute organ dysfunction status: with acute organ dysfunction Sepsis type: sepsis due to unspecified organism Severe sepsis acute organ dysfunction type: acute respiratory failure Severe sepsis shock status: without septic shock Pneumonia of right lower lobe due to infectious organism J18.9 Laterality: right Lung location: lower lobe of lung Pneumonia type: due to unspecified organism Smoker F17.200 Postobstructive pneumonia J18.9 Systolic CHF, acute I50.21 Acute on chronic congestive heart failure, unspecified heart failure type I50.9 Heart failure type: unspecified Physical deconditioning R53.81 Protein-calorie malnutrition, unspecified severity E46 Protein-calorie malnutrition severity: unspecified severity Lung mass R91.8 Immunocompromised due to corticosteroids D84.821; T38.0X5A; Z79.52 COPD exacerbation J44.1 Hypomagnesemia E83.42 Hypophosphatemia E83.39 Anxiety F41.9
== END 2023-05-11 18:15 | disposition home or self-care (01) | DRG 871 ==
LOC: ER 13:15 → ICU 14:47 → MEDSURG 05-09 15:28
PROVIDERS: Internal Medicine; Admitting Provider Family Medicine; Emergency Provider Emergency Medicine; Visit Provider Internal Medicine
DX: A41.9 Sepsis, unspecified organism (principal); I21.4 Non-ST elevation (NSTEMI) myocardial infarction; I50.21 Acute systolic (congestive) heart failure; J18.9 Pneumonia, unspecified organism; J96.01 Acute respiratory failure with hypoxia; J44.1 Chronic obstructive pulmonary disease with (acute) exacerbation; J44.0 Chronic obstructive pulmonary disease with (acute) lower respiratory infection; R57.9 Shock, unspecified; C64.1 Malignant neoplasm of right kidney, except renal pelvis; C78.00 Secondary malignant neoplasm of unspecified lung; C79.51 Secondary malignant neoplasm of bone; C79.31 Secondary malignant neoplasm of brain; E46 Unspecified protein-calorie malnutrition; D84.821 Immunodeficiency due to drugs; I48.91 Unspecified atrial fibrillation; F17.200 Nicotine dependence, unspecified, uncomplicated; T38.0X5A Adverse effect of glucocorticoids and synthetic analogues, initial encounter; E83.39 Other disorders of phosphorus metabolism; Z11.52 Encounter for screening for COVID-19; Z79.01 Long term (current) use of anticoagulants; Z90.5 Acquired absence of kidney; Z68.24 Body mass index [BMI] 24.0-24.9, adult
CPT/HCPCS: 36415; 36600; 71045; 71250; 77290; 77295; 77300; 77334; 80048; 80053; 80202; 81001; 82533; 82607; 82728; 82746; 82803; 83036; 83605; 83615; 83735; 83880; 83883; 83921; 84100; 84145; 84153; 84155; 84165; 84238; 84439; 84443; 84484; 85025; 85045; 85378; 85610; 85651; 85730; 86140; 86334; 86705; 86706; 86709; 86803; 87040; 87340; 87486; 87581; 87633; 87804; 93005; 93306; 93970; 94640; 96365; 96366; 96367; 96374; 96375; 96376; 99205; 99285; A4222; J0283; J1644; J1720; J1940; J2020; J2060; J2185; J3370; J3475; J3490; J7030; J8540; P9046

== ENCOUNTER 2023-06-02 11:44 | Inpatient (IN) | payer OTHER, SELFPAY ==
[2023-06-02] VITALS (24 sets, daily range): BP systolic 79–128; BP diastolic 59–84; PULSE 90–145; RESP 14–26; TEMP 36.4; O2SAT 81–100; BMI 18.1
--- NOTE | 2023-06-02 11:53 | ECG_ITS ---
[facility] Test Date: 2023-06-02 Pat Name: Zhang Escamilla Department: Room: Gender: Male Disc Pad Grinder: : 1960 Requested By: Bridger Andrew Order Number: [id number] Sonali MD: Arjun Soler M.D. Measurements Intervals [place] Rate: 123 P: 0 ME: 0 QRS: 124 QRSD: 94 T: -62 QT: 311 QTc: 445 Interpretive Statements ATRIAL FLUTTER/TACHYCARDIA WITH RAPID VENTRICULAR RESPONSE LEFT POSTERIOR FASCICULAR BLOCK [QRS AXIS > 109, INFERIOR Q] ST DEVIATION AND MODERATE T-WAVE ABNORMALITY, CONSIDER INFERIOR ISCHEMIA [-0.1+ mV T-WAVE IN II/aVF] Poor R wave progression Compared to ECG 05/07/2023 16:40:00 Left posterior fascicular block now present Incomplete right bundle-branch block no longer present Atrial abnormality no longer present T-wave abnormality still present Possible ischemia still present Electronically Signed On 06-02-2023 21:41:57 CDT by Arjun Soler M.D. [id number]
--- NOTE | 2023-06-02 11:58 | XRR_ITS ---
PROCEDURE INFORMATION: Exam: XR Chest Exam date and time: 06/02/2023 12:29 PM Age: 62 years old Clinical indication: Cough and dyspnea; Additional info: Dyspnea/cough TECHNIQUE: Imaging protocol: Radiologic exam of the chest. Views: 1 view. COMPARISON: CT chest con [id number] 05/07/2023 12:42 PM FINDINGS: Lungs: There is prominent right pulmonary artery with interstitial congestion No consolidation. Pleural spaces: Unremarkable. No pleural effusion. No pneumothorax. Heart/Mediastinum: Unremarkable. No cardiomegaly. Bones/joints: Unremarkable. XR/XR chest 1V portable [id number] IMPRESSION: 1. Right perihilar vascular and interstitial congestion 2. Otherwise negative chest examination
--- NOTE | 2023-06-02 11:59 | CT_ITS ---
WS: [id number] CT ABDOMEN AND PELVIS WITH CONTRAST HISTORY: abd pain, rectal pain and constipation. TECHNIQUE: Imaging performed of the abdomen and pelvis with IV contrast. Single phase imaging of the abdomen. Coronal and sagittal reformats are submitted. All CT scans at [facility] use at [facility] one of these dose optimization techniques: automated exposure control; mA and/or kV adjustment per patient size (includes targeted exams where dose is matched to clinical indication); or iterative re construction. IV CONTRAST: Omnipaque 350; 100 mL IV. Oral contrast: No DLP: 415.43 mGy.cm COMPARISON: 04/08/2023 Lower thorax: Large, partially visualized necrotic mass in the RIGHT lower lobe measures at least 4.3 x 8.2 cm. This mass was also identified on the prior CT from 04/08/2023. No improvement. There are ad ditional numerous bilateral pulmonary nodules in the lower lung mas suspicious for metastatic dise ase. Heart is normal size. No hiatal hernia. Liver/biliary system: Normal size liver. Variable enhancement throughout the liver. There are multipl e masses scattered throughout the liver. These masses are hypervascular with central lucency or necro sis. Masses on a background of hepatic steatosis. No bile duct dilatation. Normal portal vein. Gallbladder: Normal. No gallstones or wall thickening. No pericholecystic fluid. Pancreas: Normal size pancreas and pancreatic duct. No adjacent inflammation. Spleen: Variable heterogeneity throughout the spleen. Cannot exclude a few small metastatic sites. Adrenal glands: RIGHT adrenal gland is not definitely identified. Negative LEFT adrenal gland. Right kidney: Surgical removal. Left kidney: Normal size kidney. Large parapelvic cyst. Too small to characterize cortical hypodensit ies. There is no obstruction. Solid mass measuring 2.4 x 2.7 cm inferior medial kidney highly suspici ous for neoplasm. Aorta: Mild atherosclerosis with no aneurysm. Lymphadenopathy: Beginning near the renal veins there are numerous retroperitoneal lymph nodes. Large st lymph group measures 3.9 x 2.5 cm. Abnormal enhancement within the IVC. Variable attenuation for w hich tumor thrombus cannot be excluded. Additional hypervascular lymph nodes along the LEFT retroperi toneum. Free fluid: None. GI tract: Nondistended stomach. No small bowel obstruction. Diffuse fecal retention and constipation. There is marked fecal retention in the rectum. No obstructing mass identified. Abdominal wall: Unremarkable abdominal wall. No hernia. Pelvis: No adenopathy or free fluid. Well distended urinary bladder. Bladder is slightly over distend ed. Bones: Reidentified is diffuse osteoblastic disease within the L2 and the LEFT lateral aspect of L5. Lytic lesions in the proximal LEFT femur. Additional lytic destructive process in the LEFT ilium with cortical destruction. IMPRESSION: 1. Diffuse constipation and obstipation. No mechanical obstruction identified. Marked rectal distent ion. 2. Patient is status post RIGHT nephrectomy. 3. Large necrotic mass at the RIGHT lung base with additional bilateral smaller metastatic nodules i n the lower lung mas. Highly suspicious for pulmonary neoplasm with metastasis. 4. Numerous metastatic lesions within the liver. 5. Solid enhancing mass in the inferior medial LEFT kidney measures 2.4 x 2.7 cm. Highly suspicious for renal cell neoplasm. 6. Retroperitoneal adenopathy. Hypervascular metastatic lymphadenopathy. 7. Abnormal enhancement in the IVC is highly suspicious for tumor involvement. 8. Metastatic osseous disease. Lytic destructive bone changes are most significant in the LEFT ilium and the LEFT hip. The sclerotic changes reidentified also at L2 and L5.
--- NOTE | 2023-06-02 12:01 | ED_ITS ---
HPI - General Adult 2 General: Chief complaint: ER Hold Stated complaint: Abd Pain, Constipation Time Seen by Provider: 06/02/23 11:44 Source: patient Mode of arrival: ambulatory History of Present Illness: 63-year-old male presents emergency room with complaints of abdominal pain. Patient has history of renal cell CA has a history of atrial fibrillation. States has not had a bowel movement in over a week. He does take narcotics regularly for pain. He is currently undergoing chemotherapy and radiation for his cancer. He has known diffuse metastasis to the lungs brains and spine. Denies any chest pain or shortness of breath at this time. No significant abdominal pain just some mild cramping Onset (ago): week(s) (1) Location: abdomen Pain Consistency: constant Relieving factors: none Exacerbating factors: none Associated symptoms: Reports decreased appetite and palpitations; Deny chest pain, confusion, cough, diaphoresis, dyspnea, fevers/chills, headache(s), malaise, nausea, rash, seizures, short of breath, syncope, vomiting or weakness Treatments prior to arrival: none Review of Systems 2 Const: Denies: fever(s), chills, malaise or diaphoresis Card: Reports: palpitations and irregular heart rhythm; Denies: chest pain or syncope Resp: Denies: dyspnea GI: Reports: constipation, bloating and GI cramping; Denies: nausea or vomiting : Denies: dysuria, urinary frequency or urinary urgency Musc: Denies: neck pain or back pain Skin/Breast: Denies: rash Neuro: Denies: headache(s) or confusion PFS ED 2 PFSH: Medical History Hyponatremia Bradycardia Elevated lactic acid level Hyperkalemia Constipation, acute Immunocompromised due to corticosteroids Protein calorie malnutrition Physical deconditioning Acute exacerbation of CHF (congestive heart failure) Systolic CHF, acute Metastatic renal cell carcinoma Prostate cancer screening Bladder wall thickening Lung nodule < 6cm on CT 2.5cm right lower lobe H/O drug abuse Smoker 1PPD Renal cell carcinoma Surgical History H/O right nephrectomy Family History Mother Stomach cancer Father Bone cancer Social History Smoking and tobacco/nicotine status: current every day tobacco/nicotine user Alcohol intake: current Alcohol intake frequency: 0-2 Drinks per Day Substance/Drug Use: never Physical Exam 2 Const: GENERAL APPEARANCE: cooperative and comfortable O RIENTATION/CONSCIOUSNESS: Yes awake HENMT: COMMON NORMALS: normocephalic, atraumatic and hearing grossly normal bilaterally HEAD & SCALP: normocephalic and atraumatic Resp: COMMON NORMALS: normal respiratory effort, No retractions, No use of accessory muscles and clear to auscultation bilaterally AUSCULTATION: clear to auscultation bilaterally Cardio: COMMON NORMALS: No murmurs present (Cardio) RATE: tachycardic R HYTHM: abnormal rhythm GI: COMMON NORMALS: Soft to palpation and No hepatosplenomegaly present A USCULTATION: Yes normoactive bowel sounds PALPATION: Yes Soft to palpation, No Tenderness to palpation present (GI), No Guarding due to palpation present (GI) and Yes No hepatosplenomegaly present : COMMON NORMALS: Yes no CVA tenderness BLADDER/KIDNEY EXAM: Yes no CVA tenderness Back/Pelvis: COMMON NORMALS: no CVA tenderness Extremity: COMMON NORMALS: normal to inspection, capillary refill normal, no clubbing, cyanosis or edema, no calf tenderness and no pedal edema Skin: COMMON NORMALS: no rashes or lesions noted GENERAL SKIN EXAM: no rashes or lesions noted Course 2 Vital Signs: Vital signs: Vital Signs Temperature 97.6 F 06/08/23 14:57 Pulse Rate 91 06/08/23 14:57 Respiratory Rate 17 06/08/23 14:57 Blood Pressure 98/62 06/08/23 14:57 Pulse Oximetry 93 06/08/23 14:57 Oxygen Delivery Me thod Room Air 06/08/23 11:43 Oxygen Flow Rate 2 06/03/23 16:55 [facility] - General Adult Medical Decision Making A-fib treated with Cardizem rate improved. He was also given his oral amiodarone dose which she had not yet taken. CT did not show any acute changes. Patient was also given calcium gluconate insulin and glucose as well as albuterol to treat his hyperkalemia. Discussed with hospitalist orders written Medical Records I reviewed the patient's medical records. Lab Data I reviewed the patient's lab results. 06/08/23 05:41 06/08/23 05:41 Radiology Impressions Chest X-Ray 06/06/23 08:10 IMPRESSION: Right lower lobe pneumonia. KUB X-Ray 06/06/23 08:10 IMPRESSION: Large amount of stool throughout the colon and rectum. Findings are consistent with constipation. Laboratory Results WBC 16.82 10^3/uL (3.29-11.43) H 06/02/23 12:17 RBC 6.11 10^6/uL (3.85-5.65) H 06/02/23 12:17 Hgb 16.00 g/dL (11.27-16.99) 06/02/23 12:17 Hct 52.7 % (37-53) 06/02/23 12:17 MCV 86.3 fl (82-101) 06/02/23 12:17 MCH 26.2 pg (27-33) L 06/02/23 12:17 MCHC 30.4 g/dL (30-55) 06/02/23 12:17 RDW 18.3 % (12.1-15.1) H 06/02/23 12:17 Plt Count 448 10^3/cmm (157-399) H 06/02/23 12:17 MPV 9.5 fL (7.4-10.4) 06/02/23 12:17 Neut % (Auto) 64.8 % 06/02/23 12:17 Lymph % (Auto) 20.0 % 06/02/23 12:17 Bulloch % (Auto) 8.6 % 06/02/23 12:17 Eos % (Auto) 0.6 % 06/02/23 12:17 Baso % (Auto) 0.8 % 06/02/23 12:17 Neut # (Auto) 10.90 10^3/uL (1.8-7.7) H 06/02/23 12:17 Lymph # (Auto) 3.4 10^3/uL (0.8-4.8) 06/02/23 12:17 Bulloch # (Auto) 1.4 10^3/uL (0.2-0.9) H 06/02/23 12:17 Eos # (Auto) 0.1 10^3/uL (0.0-0.8) 06/02/23 12:17 Baso # (Auto) 0.1 10^3/uL (0.0-0.1) 06/02/23 12:17 Nucleated RBC % (auto) 0 % 06/02/23 12:17 Nucleated RBCs # 0.0 /100WBC 06/02/23 12:17 Sodium 132 mmol/L (136-145) L 06/02/23 12:17 Potassium 5.7 mmol/L (3.5-5.1) H 06/02/23 12:17 Chloride 96 mmol/L (98-107) L 06/02/23 12:17 Carbon Dioxide 23 mmol/L (22-29) 06/02/23 12:17 Anion Gap 18.7 (5-19) 06/02/23 12:17 BUN 32 mg/dL (8-23) H 06/02/23 12:17 Creatinine 0.9 mg/dL (0.7-1.2) 06/02/23 12:17 GFR Calculation 85.2 mL/min (90-130) L 06/02/23 12:17 Glucose 86 mg/dL (65-115) 06/02/23 12:17 POC Glucose 90 mg/dL (70-110) 06/02/23 14:52 Calculated Osmolality 280 mOsm/kg (285-295) L 06/02/23 12:17 Lactic Acid 2.8 mmol/L (0.5-2.2) H 06/02/23 12:17 Calcium 8.1 mg/dL (8.5-10.5) L 06/02/23 12:17 Total Bilirubin 1.3 mg/dL (0.15-1.2) H 06/02/23 12:17 AST 14 U/L (0-40) 06/02/23 12:17 ALT 25 U/L (0-41) 06/02/23 12:17 Alkaline Phosphatase 146 U/L (40-130) H 06/02/23 12:17 Troponin T Baseline 21 ng/L (0-15) H 06/02/23 12:17 Troponin T 120 Minute 20.57 ng/L (0-15) H 06/02/23 14:26 Delta Troponin T -0.43 ABS# (0-10) L 06/02/23 14:26 C-Reactive Protein 81.6 mg/L (0.0-4.9) H 06/02/23 12:17 Total Protein 5.7 g/dL (6.6-8.7) L 06/02/23 12:17 Albumin 3.1 g/dL (3.5-5.2) L 06/02/23 12:17 Globulin 2.6 g/dL (1.3-4.6) 06/02/23 12:17 Lipase 10 U/L (13-60) L 06/02/23 12:17 Procalcitonin 0.13 ng/mL (0-0.5) 06/02/23 12:17 TSH 5.68 uIU/mL (0.27-4.20) H 06/02/23 14:26 Urine Color Vianca (Yellow) 06/02/23 14:16 Urine Appearance Clear (CLEAR) 06/02/23 14:16 Urine pH 5 (5-7) 06/02/23 14:16 Ur Specific Fraser 1.020 (1.005-1.030) 06/02/23 14:16 Urine Protein Trace (Negative) 06/02/23 14:16 Urine Glucose (UA) Norm (Normal) 06/02/23 14:16 Urine Ketones 1+ (Negative) H 06/02/23 14:16 Urine Blood 2+ (Negative) H 06/02/23 14:16 Urine Nitrate Negative (Negative) 06/02/23 14:16 Urine Bilirubin Neg (Negative) 06/02/23 14:16 Urine Urobilinogen 1 mg/dL (Negative) H 06/02/23 14:16 Ur Leukocyte Esterase Negative (Negative) 06/02/23 14:16 Urine RBC 0-4 /hpf (0-2) H 06/02/23 14:16 Urine WBC Rare /hpf (0-5) 06/02/23 14:16 Ur Squamous Epith Cells None /hpf (0-5) 06/02/23 14:16 Amorphous Sediment Not Reportable 06/02/23 14:16 Urine Bacteria None /hpf (NONE) 06/02/23 14:16 Hyaline Casts 0-4 /lpf H 06/02/23 14:16 Urine Mucus Trace /hpf 06/02/23 14:16 All radiology interpretation(s) finalized by discharge Critical Care Time 2 Critical Care Time: Critical Care Time: Yes Total Critical Care Time: 35 Attestation: The high probability of a clinically significant, sudden or life threatening deterioration of the patient's cardiovascular endocrine system(s) required my full and direct attention, intervention and personal management. The critical care time is as shown. This time is in addition to time spent performing any reported procedures but includes the following: [x] Data and vital sign review and interpretation [x] Patient assessment, examination and intervention [x] Documentation [x] Medication orders and management Discharge Plan Discharge Patient Disposition: Admitted As Inpatient Admit Provider: Louis Brown Clinical Impression: Atrial fibrillation with rapid ventricular response, Acute hyperkalemia, Metastatic renal cell carcinoma, Constipation, Elevated lactic acid level Condition: Stable Discharge Diet: Cardiac Discharge Activity: Limit activity as instructed Coding Level of Care Code 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
[2023-06-02] MEDS: dilTIAZem 5 mg/mL SDV 5 mL 10 MG IVP (12:11)
[2023-06-02] MEDS: dilTIAZem 100 MG in sodium chloride 0.9% (add-van) 100 ML IV (12:13)
[2023-06-02 12:45] LABS: Basophils # 0.1 10^3/uL (0.0-0.1); Basophils % 0.8 %; Eosinophils # 0.1 10^3/uL (0.0-0.8); Eosinophils % 0.6 %; Hematocrit 52.7 % (37-53); Lymphocytes # 3.4 10^3/uL (0.8-4.8); Mean Corpuscular HGB Conc 30.4 g/dL (30-55); Mean Corpuscular Hemoglobin 26.2 pg (27-33); Mean Corpuscular Volume 86.3 fl (82-101); Mean Platelet Volume 9.5 fL (7.4-10.4); Monocytes # 1.4 10^3/uL (0.2-0.9); Monocytes % 8.6 %; Neutrophils % 64.8 %; Nucleated Red Blood Cells % 0 %; Platelet Count 448 10^3/cmm (157-399); Red Blood Count 6.11 10^6/uL (3.85-5.65); Red Cell Distribution Width 18.3 % (12.1-15.1); White Blood Count 16.82 10^3/uL (3.29-11.43)
--- NOTE | 2023-06-02 13:02 | ECG_ITS ---
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 Measurements Intervals [place] Rate: 130 P: 0 [place]: 0 QRS: 113 QRSD: 101 T: -24 QT: 314 QTc: 463 Interpretive Statements Atrial fibrillation WITH RAPID VENTRICULAR RESPONSE RIGHT AXIS DEVIATION [QRS AXIS > 100] LEFT VENTRICULAR HYPERTROPHY AND ST-T CHANGE [VOLTAGE CRITERIA PLUS ST/T ABNORMALITY] Compared to ECG 06/02/2023 11:53:38 Right-axis deviation now present Left ventricular hypertrophy now present ST (T wave) deviation now present Left posterior fascicular block no longer present T-wave abnormality no longer present Possible ischemia no longer present Electronically Signed On 06-02-2023 21:47:46 CDT by Arjun Soler M.D. [id number]
[2023-06-02 13:05] LABS: Alanine Aminotransferase 25 U/L (0-41); Albumin Level 3.1 g/dL (3.5-5.2); Alkaline Phosphatase 146 U/L (40-130); Blood Urea Nitrogen 32 mg/dL (8-23); Calcium 8.1 mg/dL (8.5-10.5); Carbon Dioxide 23 mmol/L (22-29); Chloride 96 mmol/L (98-107); Creatinine Clr Calc Pharmacy 80.8488; Globulin 2.6 g/dL (1.3-4.6); Glomerular Filtration Rate 85.2 mL/min (90-130); Glucose 86 mg/dL (65-115); Lipase 10 U/L (13-60); Osmolality Calculated 280 mOsm/kg (285-295); Sodium 132 mmol/L (136-145); Total Bilirubin 1.3 mg/dL (0.15-1.2); Total Protein 5.7 g/dL (6.6-8.7); Troponin(5th) Baseline 21 ng/L (0-15)
[2023-06-02 13:15] LABS: Anion Gap 18.7 (5-19); Aspartate Amino Transferase 14 U/L (0-40); Potassium 5.7 mmol/L (3.5-5.1)
[2023-06-02 13:25] LABS: Slide Review Slide Review Perform
[2023-06-02] MEDS: iohexol 350 mg/mL 500 mL Btl (per mL) IV (13:35)
[2023-06-02] MEDS: morphine 4 mg/mL SDV 1 mL IVP (14:32)
[2023-06-02] MEDS: ondansetron 2 mg/ML SDV 2 mL 4 MG IVP (14:32)
[2023-06-02] MEDS: calcium chloride 10% Syr 10 mL 1 GM IVP (14:35)
[2023-06-02] MEDS: sodium polystyrene sulfonate 15 gm/60 mL Btl PO (14:38)
--- NOTE | 2023-06-02 14:39 | PC.NURSE ---
EPHRAIM PLACED HOLD ON AMIODARONE PO MED. CLARABO TO PLACE PATIENT ON MAX DOSE CARDIZEM AT 15 MG/HR.
[2023-06-02 14:56] LABS: Glucose Point of Care 90 mg/dL (70-110)
[2023-06-02] MEDS: insulin regular-human 100 units/1 mL 10 UNIT IVP (14:56)
[2023-06-02 14:57] LABS: Bilirubin Urine Neg (Negative); Blood Urine 2+ (Negative); Glucose Urine UA Norm (Normal); Ketones Urine 1+ (Negative); Nitrate Urine Negative (Negative); Protein Urine Trace (Negative); Urine Appearance Clear (CLEAR); Urine Color Amber (Yellow); pH Urine 5 (5-7)
[2023-06-02 14:58] LABS: Add Urine Microscopic? YES; Leukocyte Esterase Urine Negative (Negative); Urobilinogen Urine 1 mg/dL (Negative)
[2023-06-02 14:58] LABS: Lactic Sepsis W/Reflex 2.8 mmol/L (0.5-2.2)
[2023-06-02 15:00] LABS: Troponin 5 2HR 20.57 ng/L (0-15)
[2023-06-02 15:01] LABS: Troponin 5 2HR Delta -0.43 ABS# (0-10)
[2023-06-02 15:09] LABS: RBC Urine 0-4 /hpf (0-2); WBC Urine RARE /hpf (0-5)
[2023-06-02 15:10] LABS: Add Urine Culture? No; Hyaline Casts Urine 0-4 /lpf; Mucus Urine TRACE /hpf
[2023-06-02] MEDS: amiodarone 150 MG/100 ML PREMIX 400 MG IV (15:22)
--- NOTE | 2023-06-02 15:23 | P.HP_ITS ---
Providers/Chief Complaint 2 Primary Care Provider: Swapnil Acosta Chief Complaint: Abd Pain, Constipation History of Present Illness Zhang Escamilla is a 62 year old male with a past medical history of advanced COPD, active smoker, history of right nephrectomy, recently diagnosed with metastatic renal cell carcinoma metastatic to vertebral spine, to the lungs, with brain metastasis on dexamethasone, currently on plans of chemo and radiation therapy, history of GI bleed, history of atrial fibrillation, who presents [facility] due to complaints of severe constipation for the last week, tell patient tells me that he has not had a bowel movement in over a week, he thinks it is a narcotic he is on, denies any fevers, no chills, no cough, he was found to be in A-fib with RVR heart rates in the 120s to 130s placed on a Cardizem drip, currently going at 10, currently alert oriented x 3, following all commands, denies any shortness of breath no chest pain, no lightheadedness, no dizziness, no nausea, no vomiting, Does report nonspecific abdominal pain, as he has not had a bowel movement in over a week Review of Systems 2 Const: Denies: fever(s) or chills Card: Denies: chest pain Resp: Denies: dyspnea GI: Reports: abdominal pain and constipation; Denies: nausea or vomiting : Denies: flank pain Neuro: Denies: headache(s) Medications/Allergies Home Medications Medication Instructions Recorded Confirmed Last Taken Type apixaban 5 mg tablet (Eliquis) 5 mg PO BID 04/21/23 06/02/23 06/01/23 History morphine 15 mg tablet,extended 15 mg PO Q12H 04/21/23 06/02/23 06/02/23 History release oxycodone-acetaminophen 5 mg-325 1 tab PO Q6H PRN break through pain 04/21/23 06/02/23 06/02/23 History mg tablet pantoprazole 40 mg tablet,delayed 40 mg PO BID 04/21/23 06/02/23 06/01/23 History release axitinib 5 mg tablet 5 mg PO BID #60 tabs 04/27/23 06/02/23 06/01/23 Rx metoprolol tartrate 100 mg tablet 100 mg PO BID 05/07/23 06/02/23 06/01/23 History naloxone 4 mg/actuation nasal See Rx Instructions .Route .COMPLEX 05/07/23 06/02/23 Unknown History spray (Narcan) dexamethasone 4 mg tablet 4 mg PO Q12H #30 tabs 05/11/23 06/02/23 06/01/23 Rx diltiazem HCl 180 mg 180 mg PO Q24H #30 caps 05/11/23 06/02/23 06/01/23 Rx capsule,extended release 24 hr, controlled (DILT-XR) furosemide 40 mg tablet (Lasix) 40 mg PO DAILY #30 tabs 05/11/23 06/02/23 06/01/23 Rx amiodarone 200 mg tablet 200 mg PO DAILY 06/02/23 06/02/23 06/01/23 History lactulose 10 gram/15 mL oral See Rx Instructions .Route .COMPLEX 06/02/23 06/02/23 Unknown History solution levofloxacin 500 mg tablet 500 mg PO DAILY 06/02/23 06/02/23 06/01/23 History spironolactone 25 mg tablet 25 mg PO DAILY 06/02/23 06/02/23 06/01/23 History Allergies Allergy/AdvReac Type Severity Reaction Status Date / Time No Known Allergies Allergy Verified 06/02/23 13:07 PFSH Acute 2 PFSH: Medical History Immunocompromised due to corticosteroids Protein calorie malnutrition Physical deconditioning Acute exacerbation of CHF (congestive heart failure) Systolic CHF, acute Metastatic renal cell carcinoma Prostate cancer screening Bladder wall thickening Lung nodule < 6cm on CT 2.5cm right lower lobe H/O drug abuse Smoker 1PPD Renal cell carcinoma Surgical History H/O right nephrectomy Family History Mother Stomach cancer Father Bone cancer Social History Smoking and tobacco/nicotine status: current every day tobacco/nicotine user Alcohol intake: current Alcohol intake frequency: 0-2 Drinks per Day Substance/Drug Use: never Vitals/I&O/Wt Last Vital Signs Temp 97.6 F 06/02/23 11:53 Pulse 114 H 06/02/23 14:49 Resp 18 06/02/23 14:49 BP 106/67 06/02/23 13:07 Pulse Ox 92 06/02/23 14:49 O2 Del Method Nasal Cannula 06/02/23 14:49 O2 Flow Rate 2 06/02/23 14:49 06/02/23 06/02/23 06/02/23 06:59 14:59 22:59 Intake Total 21.291 / 21.291 Balance 21.291 / 21.291 Weight last 48 hrs Weight 68.039 kg Physical Exam 2 Const: COMMON NORMALS: no acute distress and patient oriented x3 HENMT: COMMON NORMALS: normocephalic HEAD & SCALP: normocephalic Eye: COMMON NORMALS: Equal, round and reactive pupils present and EOMs intact bilaterally Neck/C-Spine: COMMON NORMALS: no JVD Lymph: LYMPHATIC: no lymphadenopathy noted Resp: COMMON NORMALS: normal respiratory effort, No retractions, No use of accessory muscles and clear to auscultation bilaterally AUSCULTATION: clear to auscultation bilaterally Cardio: COMMON NORMALS: S1 normal heart sound present and S2 normal heart sound present RATE: tachycardic RHYTHM: abnormal rhythm HEART SOUNDS: S 1 normal heart sound present and S2 normal heart sound present GI: OTHER: Abdomen is soft, distended, no guarding, no rebound, no rigidity, does have diffuse tenderness, scattered bowel sounds Extremity: COMMON NORMALS: no calf tenderness and no pedal edema Neuro: COMMON NORMALS: patient oriented x3, CN's II-XII intact bilaterally, moves all extremities and no focal motor deficits Psych: COMMON NORMALS: mental status grossly normal Urinary Catheter Management: Flaherty: Cath Placed During This Visit: yes Urinary Catheter Date of Insertion: 06/02/23 Urinary Catheter Time of Insertion: 14:25 Data 06/02/23 12:17 06/02/23 12:17 A&P Assessment and plan (1) Constipation, acute: (2) Atrial fibrillation with rapid ventricular response: (3) Immunocompromised due to corticosteroids: (4) Metastatic renal cell carcinoma: Qualifiers: Laterality: right Qualified Code(s): C64.1 - Malignant neoplasm of right kidney, except renal pelvis (5) Hyperkalemia: (6) Elevated lactic acid level: Plan A-fib with RVR ? Currently on Cardizem drip at 10, will titrate up ? Continue Metroprolol 50 twice daily ? Add amiodarone 200 mg daily -Continue Eliquis ? Monitor in cardiac stepdown unit Hyperkalemia, receiving Kayexalate Leukocytosis, likely secondary to chronic Decadron, Severe constipation ? Likely secondary to chronic narcotics ? Received Kayexalate ? Continue MiraLAX 17 g twice daily ? Lactulose 20 g every 6 hours ? Senna ? If patient does not have a bowel movement will consider milk of mag and or Fleet enema -1. Diffuse constipation and obstipation. No mechanical obstruction identified. Marked rectal distention. COPD not in exacerbation History of metastatic renal cell carcinoma 1. Diffuse constipation and obstipation. No mechanical obstruction identified. Marked rectal distention. 2. Patient is status post RIGHT nephrectomy. 3. Large necrotic mass at the RIGHT lung base with additional bilateral smaller metastatic nodules in the lower lung mas. Highly suspicious for pulmonary neoplasm with metastasis. 4. Numerous metastatic lesions within the liver. 5. Solid enhancing mass in the inferior medial LEFT kidney measures 2.4 x 2.7 cm. Highly suspicious for renal cell neoplasm. 6. Retroperitoneal adenopathy. Hypervascular metastatic lymphadenopathy. 7. Abnormal enhancement in the IVC is highly suspicious for tumor involvement. 8. Metastatic osseous disease. Lytic destructive bone changes are most significant in the LEFT ilium and the LEFT hip. The sclerotic changes reidentified also at L2 and L5. -Currently patient has not not undergone chemotherapy or radiation therapy Elevated lactic acid, UA within normal limits, chest x-ray within normal limits Full code ? Lovenox for DVT prophylaxis Attestations 2 Medical Necessity Statement*: Patient requires hospitalization, inpatient, greater than 2 midnights for A-fib with RVR severe constipation Diagnoses Constipation, acute K59.00 Atrial fibrillation with rapid ventricular response I48.91 Immunocompromised due to corticosteroids D84.821; T38.0X5A; Z79.52 Renal cell carcinoma of right kidney metastatic to other site C64.1 Laterality: right Hyperkalemia E87.5 Elevated lactic acid level R79.89
[2023-06-02 16:02] LABS: C Reactive Protein 81.6 mg/L (0.0-4.9)
[2023-06-02 16:08] LABS: Procalcitonin 0.13 ng/mL (0-0.5)
[2023-06-02 16:24] LABS: Reflex Lactate Order REFLEX LACTIC ORDERD
[2023-06-02 16:54] LABS: Thyroid Stimulating Hormone 5.68 uIU/mL (0.27-4.20)
[2023-06-02] MEDS: metoprolol tartrate 50 mg Tablet PO (17:18)
[2023-06-02] MEDS: polyethylene glycol 3350 Pkt 17 gm PO (17:18)
[2023-06-02] MEDS: apixaban 5 mg Tablet PO (17:18)
[2023-06-02] MEDS: lactulose oral liq 20 gm/30 mL UDC PO ×2 (17:18→23:39)
[2023-06-02] MEDS: sennosides 8.6 mg Tablet 17.1999999999999993 MG PO (17:18)
[2023-06-02] MEDS: dexamethasone 4 mg Tablet PO (17:18)
[2023-06-02] MEDS: pantoprazole DR 40 mg Tablet PO (17:18)
--- NOTE | 2023-06-02 17:58 | ECG_ITS ---
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 Measurements Intervals [place] Rate: 112 P: 0 [place]: 0 QRS: 95 QRSD: 104 T: 74 QT: 334 QTc: 457 Interpretive Statements ATRIAL FIBRILLATION WITH RAPID VENTRICULAR RESPONSE BORDERLINE RIGHT AXIS DEVIATION [QRS AXIS > 90] NONSPECIFIC T-WAVE ABNORMALITY ABNORMAL RHYTHM ECG Compared to ECG 06/02/2023 13:02:05 T-wave abnormality now present Atrial flutter no longer present Left ventricular hypertrophy no longer present ST (T wave) deviation no longer present Electronically Signed On 06-03-2023 18:40:47 CDT by Arjun Soler M.D. [id number]
[2023-06-02 18:39] LABS: Lactic Acid level (Lactate) 2.4 mmol/L (0.5-2.2)
[2023-06-02 20:01] LABS: Troponin 5 6HR 24.85 ng/L (0-15); Troponin 5 6HR Delta 3.85 ng/L (0-12)
[2023-06-02] MEDS: morphine ER (12 HR) 15 mg Tablet PO (20:13)
[2023-06-02] MEDS: sodium chloride 0.9% 1,000 ML 75 ML IV (20:14)
[2023-06-03] VITALS (21 sets, daily range): BP systolic 75–102; BP diastolic 53–79; PULSE 61–150; RESP 14–27; TEMP 36.4–36.8; O2SAT 73–100
[2023-06-03] MEDS: oxyCODONE-APAP 5-325 mg Tablet 1 TAB PO (02:06)
[2023-06-03] MEDS: dexamethasone 4 mg Tablet PO ×2 (04:27→17:48)
[2023-06-03 04:50] LABS: Basophils # 0.1 10^3/uL (0.0-0.1); Basophils % 0.5 %; Eosinophils % 0.1 %; Hematocrit 47.6 % (37-53); Lymphocytes # 2.3 10^3/uL (0.8-4.8); Mean Corpuscular HGB Conc 30.3 g/dL (30-55); Mean Corpuscular Hemoglobin 26.4 pg (27-33); Mean Corpuscular Volume 87.3 fl (82-101); Mean Platelet Volume 9.3 fL (7.4-10.4); Monocytes # 0.9 10^3/uL (0.2-0.9); Neutrophils # 11.21 10^3/uL (1.8-7.7); Neutrophils % 74.1 %; Nucleated Red Blood Cells % 0 %; Platelet Count 388 10^3/cmm (157-399); Red Blood Count 5.45 10^6/uL (3.85-5.65); Red Cell Distribution Width 17.7 % (12.1-15.1); White Blood Count 15.11 10^3/uL (3.29-11.43)
[2023-06-03 05:12] LABS: Anion Gap 14.4 (5-19); Blood Urea Nitrogen 26 mg/dL (8-23); Calcium 8.2 mg/dL (8.5-10.5); Carbon Dioxide 25 mmol/L (22-29); Chloride 98 mmol/L (98-107); Creatinine Clr Calc Pharmacy 88.2265; Glomerular Filtration Rate 97.6 mL/min (90-130); Glucose 110 mg/dL (65-115); Lactic Sepsis W/Reflex 1.3 mmol/L (0.5-2.2); Osmolality Calculated 279 mOsm/kg (285-295); Potassium 5.4 mmol/L (3.5-5.1); Sodium 132 mmol/L (136-145)
[2023-06-03] MEDS: lactulose oral liq 20 gm/30 mL UDC PO ×3 (06:30→23:15)
[2023-06-03] MEDS: dilTIAZem ER (24HR) 180 mg Capsule PO (06:30)
[2023-06-03] MEDS: sennosides 8.6 mg Tablet 17.1999999999999993 MG PO ×2 (06:31→17:48)
[2023-06-03] MEDS: morphine ER (12 HR) 15 mg Tablet PO ×2 (07:53→21:26)
[2023-06-03] MEDS: spironolactone 25 mg Tablet PO (07:53)
[2023-06-03] MEDS: metoprolol tartrate 50 mg Tablet PO (07:53)
[2023-06-03] MEDS: amiodarone 200 mg Tablet PO (07:53)
[2023-06-03] MEDS: pantoprazole DR 40 mg Tablet PO ×2 (07:53→17:48)
[2023-06-03] MEDS: apixaban 5 mg Tablet PO ×2 (07:53→17:48)
[2023-06-03] MEDS: polyethylene glycol 3350 Pkt 17 gm PO ×2 (07:54→17:48)
--- NOTE | 2023-06-03 13:36 | P.PN_ITS ---
Subjective 2 Subjective: Patient was seen this morning, currently heart rates in the 80s A-fib is well- controlled he is alert oriented x 3, following all commands, still has not had a bowel movement but is having liquid passage, still feels very constipated Vitals/I&O/Wt Last Vital Signs Temp 97.6 F 06/03/23 04:00 Pulse 80 06/03/23 12:00 Resp 23 H 06/03/23 12:00 BP 75/61 06/03/23 12:00 Pulse Ox 94 06/03/23 09:47 O2 Del Method Nasal Cannula 06/03/23 09:47 O2 Flow Rate 2 06/03/23 09:47 06/02/23 06/03/23 06/03/23 22:59 06:59 14:59 Intake Total 791.000 / 812.291 220 / 1032.291 325.597 / 325.597 Output Total 700 / 700 Balance 791.000 / 812.291 -480 / 332.291 325.597 / 325.597 Weight last 48 hrs Weight 69.49 kg Weight 65.998 kg Weight 68.039 kg Physical Exam 2 Const: COMMON NORMALS: no acute distress and patient oriented x3 Resp: COMMON NORMALS: normal respiratory effort, No retractions, No use of accessory muscles and clear to auscultation bilaterally AUSCULTATION: clear to auscultation bilaterally Cardio: COMMON NORMALS: regular rate, S1 normal heart sound present and S2 normal heart sound present RATE: regular rate RHYTHM: abnormal rhythm H EART SOUNDS: S1 normal heart sound present and S2 normal heart sound present GI: COMMON NORMALS: Normal to inspection, nondistended, normoactive bowel sounds present and non-tender Extremity: COMMON NORMALS: no pedal edema Neuro: COMMON NORMALS: patient oriented x3 Psych: COMMON NORMALS: mental status grossly normal Urinary Catheter Management: Flaherty: Cath Placed During This Visit: yes Reason for Continuing Indwelling Catheter: Accurate Measurement of Urinary Output in Critically Ill Patients Urinary Catheter Date of Insertion: 06/02/23 Urinary Catheter Time of Insertion: 14:25 Data 06/03/23 04:40 06/03/23 04:40 Micro: Microbiology 06/02/23 17:27 Blood Culture - Preliminary Blood SPECIMEN COLLECTED 06/02/23 17:32 Blood Culture - Preliminary Blood SPECIMEN COLLECTED A&P Assessment and plan (1) Constipation, acute: (2) Atrial fibrillation with rapid ventricular response: (3) Immunocompromised due to corticosteroids: (4) Metastatic renal cell carcinoma: Qualifiers: Laterality: right Qualified Code(s): C64.1 - Malignant neoplasm of right kidney, except renal pelvis (5) Hyperkalemia: (6) Elevated lactic acid level: Plan A-fib with RVR ? Patient did not respond to Cardizem switch to amiodarone drip, currently transitioning to p.o. amiodarone 400 twice daily ? Continue Metroprolol 50 twice daily -Continue Eliquis ? Monitor in cardiac stepdown unit Hyperkalemia, 5.4 Leukocytosis, likely secondary to chronic Decadron, Severe constipation ? Likely secondary to chronic narcotics ? Received Kayexalate ? Continue MiraLAX 17 g twice daily ? Lactulose 20 g every 6 hours ? Senna ? If patient does not have a bowel movement will consider milk of mag and or Fleet enema -1. Diffuse constipation and obstipation. No mechanical obstruction identified. Marked rectal distention. COPD not in exacerbation History of metastatic renal cell carcinoma 1. Diffuse constipation and obstipation. No mechanical obstruction identified. Marked rectal distention. 2. Patient is status post RIGHT nephrectomy. 3. Large necrotic mass at the RIGHT lung base with additional bilateral smaller metastatic nodules in the lower lung mas. Highly suspicious for pulmonary neoplasm with metastasis. 4. Numerous metastatic lesions within the liver. 5. Solid enhancing mass in the inferior medial LEFT kidney measures 2.4 x 2.7 cm. Highly suspicious for renal cell neoplasm. 6. Retroperitoneal adenopathy. Hypervascular metastatic lymphadenopathy. 7. Abnormal enhancement in the IVC is highly suspicious for tumor involvement. 8. Metastatic osseous disease. Lytic destructive bone changes are most significant in the LEFT ilium and the LEFT hip. The sclerotic changes reidentified also at L2 and L5. -Currently patient has not not undergone chemotherapy or radiation therapy Elevated lactic acid, UA within normal limits, chest x-ray within normal limits Full code ? Lovenox for DVT prophylaxis Plan for today continue amiodarone drip weaned off, continue p.o. amiodarone continue Eliquis, multiple regimens to help him have a bowel movement Attestations 2 Medical Necessity Statement*: Requires hospitalization for A-fib, severe constipation Diagnoses Constipation, acute K59.00 Atrial fibrillation with rapid ventricular response I48.91 Immunocompromised due to corticosteroids D84.821; T38.0X5A; Z79.52 Renal cell carcinoma of right kidney metastatic to other site C64.1 Laterality: right Hyperkalemia E87.5 Elevated lactic acid level R79.89
[2023-06-03] MEDS: midodrine 5 mg TABLET 10 MG PO ×2 (14:27→21:26)
[2023-06-03] MEDS: Fleet Enema 133 mL Enema PR (14:27)
--- NOTE | 2023-06-03 16:50 | PC.NURSE ---
Pt was taken to [facility] via wheelchair in room air. All belongings placed at bedside including Phone, septic tank cleaner, clothing, coloring books, crayons, and dentures. Attempted to call Patients and inform her of transferring patient to [facility]. Unable to leave voicemail.
[2023-06-03] MEDS: amiodarone 200 mg Tablet 400 MG PO (17:48)
[2023-06-04] VITALS (10 sets, daily range): BP systolic 102–132; BP diastolic 47–80; PULSE 73–95; RESP 16–20; TEMP 36.4–37; O2SAT 93–98
[2023-06-04] MEDS: dexamethasone 4 mg Tablet PO ×2 (03:56→16:03)
[2023-06-04] MEDS: oxyCODONE-APAP 5-325 mg Tablet 1 TAB PO (03:56)
[2023-06-04] MEDS: lactulose oral liq 20 gm/30 mL UDC PO ×3 (05:14→18:05)
[2023-06-04] MEDS: sennosides 8.6 mg Tablet 17.1999999999999993 MG PO ×2 (05:14→18:05)
[2023-06-04] MEDS: midodrine 5 mg TABLET 10 MG PO ×3 (05:15→20:51)
[2023-06-04 05:16] LABS: Basophils # 0.1 10^3/uL (0.0-0.1); Basophils % 0.4 %; Eosinophils % 0.1 %; Hematocrit 45.7 % (37-53); Lymphocytes # 1.5 10^3/uL (0.8-4.8); Mean Corpuscular HGB Conc 30.9 g/dL (30-55); Mean Corpuscular Hemoglobin 26.7 pg (27-33); Mean Corpuscular Volume 86.6 fl (82-101); Mean Platelet Volume 9.5 fL (7.4-10.4); Monocytes # 1.2 10^3/uL (0.2-0.9); Monocytes % 6.9 %; Neutrophils # 13.56 10^3/uL (1.8-7.7); Nucleated Red Blood Cells % 0 %; Platelet Count 441 10^3/cmm (157-399); Red Blood Count 5.28 10^6/uL (3.85-5.65); Red Cell Distribution Width 17.5 % (12.1-15.1); White Blood Count 17.13 10^3/uL (3.29-11.43)
[2023-06-04 05:41] LABS: Anion Gap 15.8 (5-19); Blood Urea Nitrogen 24 mg/dL (8-23); Calcium 8.3 mg/dL (8.5-10.5); Carbon Dioxide 26 mmol/L (22-29); Chloride 96 mmol/L (98-107); Creatinine Clr Calc Pharmacy 106.1653; Glomerular Filtration Rate 113.9 mL/min (90-130); Glucose 133 mg/dL (65-115); Osmolality Calculated 280 mOsm/kg (285-295); Potassium 5.8 mmol/L (3.5-5.1); Sodium 132 mmol/L (136-145)
[2023-06-04] MEDS: spironolactone 25 mg Tablet PO (08:57)
[2023-06-04] MEDS: morphine ER (12 HR) 15 mg Tablet PO ×2 (08:57→20:51)
[2023-06-04] MEDS: amiodarone 200 mg Tablet 400 MG PO ×2 (08:57→18:06)
[2023-06-04] MEDS: polyethylene glycol 3350 Pkt 17 gm PO ×2 (08:57→18:06)
[2023-06-04] MEDS: pantoprazole DR 40 mg Tablet PO ×2 (08:57→18:05)
[2023-06-04] MEDS: metoprolol tartrate 50 mg Tablet PO ×2 (08:57→18:06)
[2023-06-04] MEDS: apixaban 5 mg Tablet PO ×2 (08:57→18:05)
--- NOTE | 2023-06-04 14:30 | P.PN_ITS ---
Subjective 2 Subjective: Patient was seen this morning, denies any fevers, chills, he still has not had a bowel movement he feels constipated, feels bloated, he has been on several doses of lactulose, MiraLAX, we discussed potentially trying a Fleet enema Vitals/I&O/Wt Last Vital Signs Temp 98.3 F 06/04/23 12:00 Pulse 95 06/04/23 12:00 Resp 20 H 06/04/23 12:00 BP 105/66 06/04/23 12:00 Pulse Ox 97 06/04/23 12:00 O2 Del Method Room Air 06/04/23 12:00 O2 Flow Rate 2 06/03/23 16:55 06/03/23 06/04/23 06/04/23 22:59 06:59 14:59 Intake Total 1000 / 1325.597 720 / 2045.597 Output Total 1600 / 1600 1000 / 1000 Balance 1000 / 1325.597 -880 / 445.597 -1000 / -1000 Weight last 48 hrs Weight 69.49 kg Weight 69.49 kg Weight 65.998 kg Physical Exam 2 Const: COMMON NORMALS: no acute distress and patient oriented x3 Resp: COMMON NORMALS: normal respiratory effort, No retractions, No use of accessory muscles and clear to auscultation bilaterally AUSCULTATION: clear to auscultation bilaterally Cardio: COMMON NORMALS: regular rate, regular rhythm, S1 normal heart sound present and S2 normal heart sound present RATE: regular rate RHYTHM: r egular rhythm HEART SOUNDS: S1 normal heart sound present and S2 normal heart sound present GI: COMMON NORMALS: Normal to inspection, nondistended, normoactive bowel sounds present and non-tender Extremity: COMMON NORMALS: no pedal edema Neuro: COMMON NORMALS: patient oriented x3 Psych: COMMON NORMALS: mental status grossly normal Urinary Catheter Management: Flaherty: Cath Placed During This Visit: yes Reason for Continuing Indwelling Catheter: Accurate Measurement of Urinary Output in Critically Ill Patients Urinary Catheter Date of Insertion: 06/02/23 Urinary Catheter Time of Insertion: 14:25 Data 06/04/23 04:25 06/04/23 04:25 Micro: Microbiology 06/02/23 17:27 Blood Culture - Preliminary Blood NEGATIVE TO DATE 06/02/23 17:32 Blood Culture - Preliminary Blood NEGATIVE TO DATE A&P Assessment and plan (1) Constipation, acute: (2) Atrial fibrillation with rapid ventricular response: (3) Immunocompromised due to corticosteroids: (4) Metastatic renal cell carcinoma: Qualifiers: Laterality: right Qualified Code(s): C64.1 - Malignant neoplasm of right kidney, except renal pelvis (5) Hyperkalemia: (6) Elevated lactic acid level: Plan A-fib with RVR ? Continue amiodarone 400 twice daily ? Continue Metroprolol 50 twice daily -Continue Eliquis Hyperkalemia, BMP, Kayexalate Leukocytosis, likely secondary to chronic Decadron, Severe constipation ? Likely secondary to chronic narcotics ? Received Kayexalate ? Continue MiraLAX 17 g twice daily ? Lactulose 20 g every 6 hours ? Senna ? If patient does not have a bowel movement will consider milk of mag and or Fleet enema -1. Diffuse constipation and obstipation. No mechanical obstruction identified. Marked rectal distention. COPD not in exacerbation History of metastatic renal cell carcinoma 1. Diffuse constipation and obstipation. No mechanical obstruction identified. Marked rectal distention. 2. Patient is status post RIGHT nephrectomy. 3. Large necrotic mass at the RIGHT lung base with additional bilateral smaller metastatic nodules in the lower lung mas. Highly suspicious for pulmonary neoplasm with metastasis. 4. Numerous metastatic lesions within the liver. 5. Solid enhancing mass in the inferior medial LEFT kidney measures 2.4 x 2.7 cm. Highly suspicious for renal cell neoplasm. 6. Retroperitoneal adenopathy. Hypervascular metastatic lymphadenopathy. 7. Abnormal enhancement in the IVC is highly suspicious for tumor involvement. 8. Metastatic osseous disease. Lytic destructive bone changes are most significant in the LEFT ilium and the LEFT hip. The sclerotic changes reidentified also at L2 and L5. -Currently patient has not not undergone chemotherapy or radiation therapy Elevated lactic acid, UA within normal limits, chest x-ray within normal limits Full code ? Lovenox for DVT prophylaxis Plan for today continue a Fleet enema for severe constipation Attestations 2 Medical Necessity Statement*: Patient requires hospitalization for severe constipation, A-fib, leukocytosis Diagnoses Constipation, acute K59.00 Atrial fibrillation with rapid ventricular response I48.91 Immunocompromised due to corticosteroids D84.821; T38.0X5A; Z79.52 Renal cell carcinoma of right kidney metastatic to other site C64.1 Laterality: right Hyperkalemia E87.5 Elevated lactic acid level R79.89
[2023-06-04] MEDS: sodium polystyrene sulfonate 15 gm/60 mL Btl PO (16:02)
[2023-06-04 16:04] LABS: Anion Gap 15.2 (5-19); Blood Urea Nitrogen 19 mg/dL (8-23); Calcium 8.5 mg/dL (8.5-10.5); Carbon Dioxide 28 mmol/L (22-29); Chloride 95 mmol/L (98-107); Creatinine Clr Calc Pharmacy 106.1653; Glomerular Filtration Rate 113.9 mL/min (90-130); Glucose 112 mg/dL (65-115); Osmolality Calculated 279 mOsm/kg (285-295); Potassium 5.2 mmol/L (3.5-5.1); Sodium 133 mmol/L (136-145)
[2023-06-04] MEDS: phenyleph-mineral oil-petrolat Oint 28 gm 1 APPLIC PR (20:50)
[2023-06-04] MEDS: Fleet Enema 133 mL Enema PR (23:23)
[2023-06-05] VITALS (9 sets, daily range): BP systolic 100–120; BP diastolic 52–76; PULSE 60–87; RESP 16–18; TEMP 36.3–36.5; O2SAT 90–97
[2023-06-05] MEDS: midodrine 5 mg TABLET 10 MG PO ×3 (05:08→20:49)
[2023-06-05] MEDS: lactulose oral liq 20 gm/30 mL UDC PO ×2 (05:08→17:58)
[2023-06-05] MEDS: sennosides 8.6 mg Tablet 17.1999999999999993 MG PO ×2 (05:08→17:58)
[2023-06-05] MEDS: dexamethasone 4 mg Tablet PO ×2 (05:08→16:08)
[2023-06-05] MEDS: dilTIAZem ER (24HR) 180 mg Capsule PO (05:08)
[2023-06-05 05:36] LABS: Basophils # 0.1 10^3/uL (0.0-0.1); Basophils % 0.3 %; Hematocrit 44.3 % (37-53); Lymphocytes # 1.9 10^3/uL (0.8-4.8); Lymphocytes % 10.7 %; Mean Corpuscular HGB Conc 31.2 g/dL (30-55); Mean Corpuscular Hemoglobin 26.6 pg (27-33); Mean Corpuscular Volume 85.5 fl (82-101); Mean Platelet Volume 9.2 fL (7.4-10.4); Monocytes # 1.5 10^3/uL (0.2-0.9); Monocytes % 8.5 %; Neutrophils # 13.39 10^3/uL (1.8-7.7); Neutrophils % 76.9 %; Nucleated Red Blood Cells % 0 %; Platelet Count 436 10^3/cmm (157-399); Red Blood Count 5.18 10^6/uL (3.85-5.65); Red Cell Distribution Width 17.3 % (12.1-15.1); White Blood Count 17.39 10^3/uL (3.29-11.43)
[2023-06-05 05:53] LABS: Blood Urea Nitrogen 17 mg/dL (8-23); Calcium 8.2 mg/dL (8.5-10.5); Carbon Dioxide 24 mmol/L (22-29); Chloride 92 mmol/L (98-107); Creatinine Clr Calc Pharmacy 104.2414; Glomerular Filtration Rate 97.3 mL/min (90-130); Glucose 115 mg/dL (65-115); Osmolality Calculated 264 mOsm/kg (285-295); Sodium 126 mmol/L (136-145)
[2023-06-05 05:56] LABS: Anion Gap 15.1 (5-19); Potassium 5.1 mmol/L (3.5-5.1)
[2023-06-05] MEDS: morphine ER (12 HR) 15 mg Tablet PO ×2 (08:28→20:49)
[2023-06-05] MEDS: polyethylene glycol 3350 Pkt 17 gm PO ×2 (08:28→17:58)
[2023-06-05] MEDS: amiodarone 200 mg Tablet 400 MG PO ×2 (08:29→18:02)
[2023-06-05] MEDS: pantoprazole DR 40 mg Tablet PO ×2 (08:29→17:58)
[2023-06-05] MEDS: apixaban 5 mg Tablet PO ×2 (08:29→17:58)
[2023-06-05] MEDS: metoprolol tartrate 50 mg Tablet PO (08:29)
[2023-06-05] MEDS: spironolactone 25 mg Tablet PO (08:30)
[2023-06-05] MEDS: phenyleph-mineral oil-petrolat Oint 28 gm 1 APPLIC PR ×4 (08:31→20:50)
--- NOTE | 2023-06-05 09:18 | PC.CHAP ---
Pastoral Care Encounter/Spiritual Assessment Type of Contact [] Declined rn urology visit [] Patient/Family/Request visit [] Outpatient visit [] Follow-up visit [] Physician referral [] Code/Alert [x] Routine visit [] Staff referral [] Actively dying [] Patient sleeping [] Family support [] [] Out of room [] Palliative care [] [] Receiving care in room [] Pre-surgical visit [] Trauma [] Long length of stay [] ICU visit [] Other: Relational/Emotional Strength [x] Patient feels connected with others/family/visitors/staff [] Distress [] Loneliness/isolation [] Abandonment Spirituality of Patient [x] Person of Charito [x] Attends Amish of their [place] [x] Believes in Prayer [] Reads Bible or Advent materials [] There are Spiritual issues to be addressed Shelter Director Interventions [x] Prayer [x] Active listening [x] Non-anxious presence [x] Spiritual/emotional support [] Crisis/trauma care [] Spiritual counseling [] Bereavement support [] Provided bereavement packet [] Provided Bible/devotional materials [] Provided toy/stuffed animal, coloring book to patient or family member [] Provided Communion [] Anointing/[facility] [] Salvation [x] Completed spiritual assessment [] Other: Impact on Illness or Injury [] Angry [] Fearful [] Anxious [] Often cries [] Exhaustion [] Unable to work [] Unable to attend jain [] Unable to walk/stand [] Unable to read [] Unable to drive [] Unable to eat/drink [] Unable to sleep [] Unable to be with family [] Patient intubated [] Other: Summary Time spent with patient 5 min
[2023-06-05] MEDS: sodium chloride 1 gm Tablet PO ×2 (10:32→17:58)
--- NOTE | 2023-06-05 11:22 | ECG_ITS ---
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 Measurements Intervals [place] Rate: 53 P: 0 TX: 0 QRS: 95 QRSD: 122 T: 89 QT: 486 QTc: 459 Interpretive Statements ATRIAL FIBRILLATION WITH SLOW VENTRICULAR RESPONSE BORDERLINE RIGHT AXIS DEVIATION [QRS AXIS > 90] MODERATE INTRAVENTRICULAR CONDUCTION DELAY [110+ ms QRS DURATION] PROLONGED QT INTERVAL Compared to ECG 06/05/2023 11:30:44 Intraventricular conduction delay now present Prolonged QT interval now present Electronically Signed On 06-06-2023 19:26:27 CDT by Arjun Soler M.D. [id number] [email or web address]
[2023-06-05 12:48] LABS: Troponin(5th) Baseline 11 ng/L (0-15)
--- NOTE | 2023-06-05 13:22 | ECG_ITS ---
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 Measurements Intervals [place] Rate: 48 P: 0 [place]: 0 QRS: 99 QRSD: 109 T: 85 QT: 458 QTc: 410 Interpretive Statements ATRIAL FIBRILLATION WITH SLOW VENTRICULAR RESPONSE BORDERLINE RIGHT AXIS DEVIATION [QRS AXIS > 90] ABNORMAL RHYTHM ECG Compared to ECG 06/02/2023 18:12:16 T-wave abnormality no longer present Electronically Signed On 06-06-2023 19:50:31 CDT by Arjun Soler M.D. [id number]
--- NOTE | 2023-06-05 13:47 | PC.NURSE ---
patient refused [address] swanson notified.
--- NOTE | 2023-06-05 15:25 | P.PN_ITS ---
Subjective 2 Subjective: Patient was seen this morning, denies any fevers, chills, no cough, has had a small bowel movement, but continues to feel bloated Vitals/I&O/Wt Last Vital Signs Temp 97.4 F L 06/05/23 11:21 Pulse 70 06/05/23 07:53 Resp 16 06/05/23 11:21 BP 103/52 06/05/23 11:21 Pulse Ox 94 06/05/23 11:21 O2 Del Method Room Air 06/05/23 11:21 O2 Flow Rate 2 06/03/23 16:55 06/05/23 06/05/23 06/05/23 06:59 14:59 22:59 Intake Total 240 / 240 Output Total 500 / 4450 Balance -500 / -3850 240 / 240 Weight last 48 hrs Weight 70.76 kg Weight 69.49 kg Physical Exam 2 Const: COMMON NORMALS: no acute distress and patient oriented x3 Resp: COMMON NORMALS: normal respiratory effort, No retractions, No use of accessory muscles and clear to auscultation bilaterally AUSCULTATION: clear to auscultation bilaterally Cardio: COMMON NORMALS: regular rate, regular rhythm, S1 normal heart sound present and S2 normal heart sound present RATE: regular rate RHYTHM: r egular rhythm HEART SOUNDS: S1 normal heart sound present and S2 normal heart sound present GI: COMMON NORMALS: Normal to inspection, nondistended, normoactive bowel sounds present and non-tender Extremity: COMMON NORMALS: no pedal edema Neuro: COMMON NORMALS: patient oriented x3 Psych: COMMON NORMALS: mental status grossly normal Urinary Catheter Management: Flaherty: Cath Placed During This Visit: yes Reason for Continuing Indwelling Catheter: Accurate Measurement of Urinary Output in Critically Ill Patients Urinary Catheter Date of Insertion: 06/02/23 Urinary Catheter Time of Insertion: 14:25 Data 06/05/23 05:17 06/05/23 05:17 A&P Assessment and plan (1) Constipation, acute: (2) Atrial fibrillation with rapid ventricular response: (3) Immunocompromised due to corticosteroids: (4) Metastatic renal cell carcinoma: Qualifiers: Laterality: right Qualified Code(s): C64.1 - Malignant neoplasm of right kidney, except renal pelvis (5) Hyperkalemia: (6) Elevated lactic acid level: Plan A-fib with RVR ? Continue amiodarone 400 twice daily ? Continue Metroprolol 50 twice daily -Continue Eliquis Hyperkalemia, BMP, Kayexalate Leukocytosis, likely secondary to chronic Decadron, Severe constipation ? Likely secondary to chronic narcotics ? Received Kayexalate ? Continue MiraLAX 17 g twice daily ? Lactulose 20 g every 6 hours ? Senna ? If patient does not have a bowel movement will consider milk of mag and or Fleet enema -1. Diffuse constipation and obstipation. No mechanical obstruction identified. Marked rectal distention. COPD not in exacerbation History of metastatic renal cell carcinoma 1. Diffuse constipation and obstipation. No mechanical obstruction identified. Marked rectal distention. 2. Patient is status post RIGHT nephrectomy. 3. Large necrotic mass at the RIGHT lung base with additional bilateral smaller metastatic nodules in the lower lung mas. Highly suspicious for pulmonary neoplasm with metastasis. 4. Numerous metastatic lesions within the liver. 5. Solid enhancing mass in the inferior medial LEFT kidney measures 2.4 x 2.7 cm. Highly suspicious for renal cell neoplasm. 6. Retroperitoneal adenopathy. Hypervascular metastatic lymphadenopathy. 7. Abnormal enhancement in the IVC is highly suspicious for tumor involvement. 8. Metastatic osseous disease. Lytic destructive bone changes are most significant in the LEFT ilium and the LEFT hip. The sclerotic changes reidentified also at L2 and L5. -Currently patient has not not undergone chemotherapy or radiation therapy Elevated lactic acid, UA within normal limits, chest x-ray within normal limits Full code ? Lovenox for DVT prophylaxis Plan for today continue a Fleet enema for severe constipation Attestations 2 Medical Necessity Statement*: Patient requires hospitalization due to severe constipation, now developing bradycardia Coding Level of Care Code Acute Code for [facility] Fwd Diagnoses Constipation, acute K59.00 Atrial fibrillation with rapid ventricular response I48.91 Immunocompromised due to corticosteroids D84.821; T38.0X5A; Z79.52 Renal cell carcinoma of right kidney metastatic to other site C64.1 Laterality: right Hyperkalemia E87.5 Elevated lactic acid level R79.89
[2023-06-05] MEDS: magnesium citrate Btl 296 mL 150 ML PO (16:07)
[2023-06-05 18:36] LABS: Blood Urea Nitrogen 20 mg/dL (8-23); Calcium 7.9 mg/dL (8.5-10.5); Carbon Dioxide 28 mmol/L (22-29); Chloride 98 mmol/L (98-107); Creatinine Clr Calc Pharmacy 104.2414; Glomerular Filtration Rate 97.3 mL/min (90-130); Glucose 126 mg/dL (65-115); Magnesium 1.9 mg/dL (1.7-2.3); Osmolality Calculated 284 mOsm/kg (285-295); Sodium 135 mmol/L (136-145); Troponin 5 6HR 11.87 ng/L (0-15); Troponin 5 6HR Delta 0.87 ng/L (0-12)
[2023-06-05 18:40] LABS: Anion Gap 14.1 (5-19); Potassium 5.1 mmol/L (3.5-5.1)
[2023-06-05] MEDS: oxyCODONE-APAP 5-325 mg Tablet 1 TAB PO (22:01)
[2023-06-06] VITALS (10 sets, daily range): BP systolic 100–136; BP diastolic 65–89; PULSE 54–104; RESP 15–18; TEMP 36.4–37.1; O2SAT 92–95; BMI 20.3
[2023-06-06] MEDS: lactulose oral liq 20 gm/30 mL UDC PO ×2 (05:05→18:08)
[2023-06-06] MEDS: sennosides 8.6 mg Tablet 17.1999999999999993 MG PO ×2 (05:05→18:08)
[2023-06-06] MEDS: dexamethasone 4 mg Tablet PO ×2 (05:05→18:08)
[2023-06-06] MEDS: midodrine 5 mg TABLET 10 MG PO ×3 (05:05→20:59)
[2023-06-06 05:24] LABS: Basophils # 0.1 10^3/uL (0.0-0.1); Basophils % 0.4 %; Hematocrit 44.5 % (37-53); Lymphocytes # 1.6 10^3/uL (0.8-4.8); Lymphocytes % 8.2 %; Mean Corpuscular HGB Conc 31.5 g/dL (30-55); Mean Corpuscular Hemoglobin 27.1 pg (27-33); Mean Corpuscular Volume 86.1 fl (82-101); Mean Platelet Volume 9.6 fL (7.4-10.4); Monocytes # 1.7 10^3/uL (0.2-0.9); Monocytes % 8.7 %; Neutrophils # 15.45 10^3/uL (1.8-7.7); Neutrophils % 78.5 %; Nucleated Red Blood Cells % 0 %; Platelet Count 481 10^3/cmm (157-399); Red Blood Count 5.17 10^6/uL (3.85-5.65); Red Cell Distribution Width 17.6 % (12.1-15.1); White Blood Count 19.68 10^3/uL (3.29-11.43)
[2023-06-06 05:45] LABS: Anion Gap 13.5 (5-19); Blood Urea Nitrogen 22 mg/dL (8-23); Calcium 7.8 mg/dL (8.5-10.5); Carbon Dioxide 27 mmol/L (22-29); Chloride 96 mmol/L (98-107); Glucose 137 mg/dL (65-115); Osmolality Calculated 277 mOsm/kg (285-295); Potassium 5.5 mmol/L (3.5-5.1); Sodium 131 mmol/L (136-145)
--- NOTE | 2023-06-06 08:10 | XRR_ITS ---
PROCEDURE INFORMATION: Exam: XR Abdomen Exam date and time: 06/06/2023 9:09 AM Age: 63 years old Clinical indication: Patient HX: Constipation x 1 week, swollen legs, history of smoking, right kidney was removed, kidney cancer, lung cancer, brain cancer, spine cancer TECHNIQUE: Imaging protocol: Radiologic exam of the abdomen. Views: Frontal supine view of the abdomen. 1 View. COMPARISON: CT abdomen pelvis w con* [id number] 06/02/2023 1:32 PM FINDINGS: Gastrointestinal tract: Increased stool throughout the colon and rectum. Intraperitoneal space: Scattered postop surgical clips in the right hemiabdomen. Bones/joints: Degenerative change of the lumbar spine and hip joints XR/XR KUB portable [id number] IMPRESSION: Large amount of stool throughout the colon and rectum. Findings are consistent with constipation.
--- NOTE | 2023-06-06 08:10 | XRR_ITS ---
PROCEDURE INFORMATION: Exam: XR Chest Exam date and time: 06/06/2023 9:09 AM Age: 63 years old Clinical indication: Shortness of breath; Additional info: SOB TECHNIQUE: Imaging protocol: Radiologic exam of the chest. Views: 1 view. COMPARISON: CR XR chest 1V portable [id number] 06/02/2023 12:29 PM FINDINGS: Lungs: Right lower lobe infiltrate suggestive of pneumonia Pleural spaces: Unremarkable. No pleural effusion. No pneumothorax. Heart/Mediastinum: Unremarkable. No cardiomegaly. Bones/joints: Unremarkable. XR/XR chest 1V portable [id number] IMPRESSION: Right lower lobe pneumonia.
[2023-06-06 08:47] LABS: C Reactive Protein 14.2 mg/L (0.0-4.9)
[2023-06-06 08:53] LABS: Procalcitonin 0.06 ng/mL (0-0.5)
[2023-06-06] MEDS: metoprolol tartrate 25 mg Tablet PO ×2 (09:34→21:00)
[2023-06-06] MEDS: spironolactone 25 mg Tablet PO (09:34)
[2023-06-06] MEDS: pantoprazole DR 40 mg Tablet PO ×2 (09:34→18:08)
[2023-06-06] MEDS: polyethylene glycol 3350 Pkt 17 gm PO ×2 (09:34→18:08)
[2023-06-06] MEDS: sodium chloride 1 gm Tablet PO ×2 (09:34→18:08)
[2023-06-06] MEDS: apixaban 5 mg Tablet PO ×2 (09:34→18:08)
[2023-06-06] MEDS: sodium polystyrene sulfonate 15 gm/60 mL Btl PO (09:34)
[2023-06-06] MEDS: morphine ER (12 HR) 15 mg Tablet PO ×2 (09:34→21:00)
[2023-06-06] MEDS: amiodarone 200 mg Tablet 400 MG PO (09:34)
[2023-06-06] MEDS: phenyleph-mineral oil-petrolat Oint 28 gm 1 APPLIC PR ×4 (09:35→21:02)
--- NOTE | 2023-06-06 13:38 | P.PN_ITS ---
Subjective 2 Subjective: Patient was seen this morning, denies any fevers, no chills, does have a cough, he tells me that he has not had a bowel movement he did have episodes of bradycardia yesterday, for which his metoprolol and his diltiazem were held, currently heart rates are in the 110s, we discussed resuming his metoprolol at a lower dose, watching his heart rates, his white blood cell count has gone up to 19,000, I am to do a chest x-ray with some blood work, does have a cough, no fevers, no chills, he has had scant bowel movements Vitals/I&O/Wt Last Vital Signs Temp 97.8 F 06/06/23 12:55 Pulse 74 06/06/23 12:55 Resp 16 06/06/23 12:55 BP 124/76 06/06/23 12:55 Pulse Ox 93 06/06/23 12:55 O2 Del Method Room Air 06/06/23 12:55 O2 Flow Rate 2 06/03/23 16:55 06/05/23 06/06/23 06/06/23 22:59 06:59 14:59 Intake Total 1200 / 1680 600 / 2280 480 / 480 Output Total 800 / 800 Balance 1200 / 1680 -200 / 1480 480 / 480 Weight last 48 hrs Weight 68.039 kg Weight 70.76 kg Physical Exam 2 Const: COMMON NORMALS: no acute distress and patient oriented x3 Resp: COMMON NORMALS: normal respiratory effort, No retractions and No use of accessory muscles AUSCULTATION: crackles and wheezes OTHER: Right lower lobe crackles and wheezing Cardio: COMMON NORMALS: regular rate, regular rhythm, S1 normal heart sound present and S2 normal heart sound present RATE: regular rate RHYTHM: r egular rhythm HEART SOUNDS: S1 normal heart sound present and S2 normal heart sound present GI: COMMON NORMALS: Normal to inspection, nondistended, normoactive bowel sounds present and non-tender Neuro: COMMON NORMALS: patient oriented x3 Psych: COMMON NORMALS: mental status grossly normal Urinary Catheter Management: Flaherty: Cath Placed During This Visit: yes Reason for Continuing Indwelling Catheter: Accurate Measurement of Urinary Output in Critically Ill Patients Urinary Catheter Date of Insertion: 06/02/23 Urinary Catheter Time of Insertion: 14:25 Data 06/06/23 04:39 06/06/23 04:39 Micro: Microbiology 06/06/23 10:16 Blood Culture - Preliminary Blood SPECIMEN COLLECTED 06/06/23 10:22 Blood Culture - Preliminary Blood SPECIMEN COLLECTED A&P Assessment and plan (1) Constipation, acute: (2) Atrial fibrillation with rapid ventricular response: (3) Immunocompromised due to corticosteroids: (4) Metastatic renal cell carcinoma: Qualifiers: Laterality: right Qualified Code(s): C64.1 - Malignant neoplasm of right kidney, except renal pelvis (5) Hyperkalemia: (6) Elevated lactic acid level: (7) Pneumonia: Qualifiers: Laterality: right Lung location: lower lobe of lung Pneumonia type: d ue to unspecified organism Qualified Code(s): J18.9 - Pneumonia, unspecified organism (8) Bradycardia: Plan Right lower lobe pneumonia ? Seen on chest x-ray ? White blood cell count 19.2, CRP 14.2, Pro-David 0.06 ? Plan ? Start Rocephin ? Start azithromycin ? Monitor respiratory status closely Serum sodium 131, monitor A-fib with RVR, now with bradycardia ? Decrease amiodarone to 4 mg daily ? Decrease metoprolol to 25 twice daily -Continue Eliquis ?Monitor bradycardia Hyperkalemia, BMP, Kayexalate Leukocytosis, likely secondary to chronic Decadron, Severe constipation ? Likely secondary to chronic narcotics ? Received Kayexalate ? Continue MiraLAX 17 g twice daily ? Lactulose 20 g every 12 hours ? Senna ? If patient does not have a bowel movement will consider milk of mag and or Fleet enema -1. Diffuse constipation and obstipation. No mechanical obstruction identified. Marked rectal distention. COPD not in exacerbation History of metastatic renal cell carcinoma 1. Diffuse constipation and obstipation. No mechanical obstruction identified. Marked rectal distention. 2. Patient is status post RIGHT nephrectomy. 3. Large necrotic mass at the RIGHT lung base with additional bilateral smaller metastatic nodules in the lower lung mas. Highly suspicious for pulmonary neoplasm with metastasis. 4. Numerous metastatic lesions within the liver. 5. Solid enhancing mass in the inferior medial LEFT kidney measures 2.4 x 2.7 cm. Highly suspicious for renal cell neoplasm. 6. Retroperitoneal adenopathy. Hypervascular metastatic lymphadenopathy. 7. Abnormal enhancement in the IVC is highly suspicious for tumor involvement. 8. Metastatic osseous disease. Lytic destructive bone changes are most significant in the LEFT ilium and the LEFT hip. The sclerotic changes reidentified also at L2 and L5. -Currently patient has not not undergone chemotherapy or radiation therapy Elevated lactic acid, UA within normal limits, chest x-ray within normal limits Full code ? Eliquis for DVT prophylaxis Plan for today continue a Fleet enema for severe constipation, right lower lobe pneumonia, atrial fibrillation Attestations 2 Medical Necessity Statement*: Patient requires hospitalization for right lower lobe pneumonia, severe constipation, COPD, elevated lactic acid, Diagnoses Constipation, acute K59.00 Atrial fibrillation with rapid ventricular response I48.91 Immunocompromised due to corticosteroids D84.821; T38.0X5A; Z79.52 Renal cell carcinoma of right kidney metastatic to other site C64.1 Laterality: right Hyperkalemia E87.5 Elevated lactic acid level R79.89 Pneumonia of right lower lobe due to infectious organism J18.9 Laterality: right Lung location: lower lobe of lung Pneumonia type: due to unspecified organism Bradycardia R00.1
[2023-06-06] MEDS: cefTRIAXone 1,000 MG in sodium chloride 0.9% (plus) 50 ML 100 MG IV (14:04)
[2023-06-06] MEDS: azithromycin 500 MG in sodium chloride 0.9% 250 ML 250 MG IV (14:04)
[2023-06-06] MEDS: oxyCODONE-APAP 5-325 mg Tablet 1 TAB PO (18:08)
[2023-06-06 18:37] LABS: Add Urine Microscopic? NO; Charge for UA Resulting for Rev
[2023-06-06 18:43] LABS: Bilirubin Urine Neg (Negative); Blood Urine Neg (Negative); Glucose Urine UA Norm (Normal); Ketones Urine Negative (Negative); Leukocyte Esterase Urine Negative (Negative); Nitrate Urine Negative (Negative); Protein Urine Neg (Negative); Specific Gravity, Urine 1.005 (1.005-1.030); Urine Appearance Clear (CLEAR); Urine Color Dark Yellow (Yellow); Urobilinogen Urine 4 mg/dL (Negative); pH Urine 7 (5-7)
[2023-06-07] VITALS (9 sets, daily range): BP systolic 96–125; BP diastolic 63–78; PULSE 55–98; RESP 16–20; TEMP 36.4–36.9; O2SAT 92–94
[2023-06-07] MEDS: dexamethasone 4 mg Tablet PO ×2 (04:36→17:20)
[2023-06-07] MEDS: sennosides 8.6 mg Tablet 17.1999999999999993 MG PO ×2 (05:23→17:20)
[2023-06-07] MEDS: midodrine 5 mg TABLET 10 MG PO ×3 (05:23→21:30)
[2023-06-07] MEDS: lactulose oral liq 20 gm/30 mL UDC PO ×2 (05:23→17:21)
[2023-06-07 08:05] LABS: Hematocrit 46.6 % (37-53); Mean Corpuscular Volume 89.8 fl (82-101); Mean Platelet Volume 9.1 fL (7.4-10.4); Platelet Count 513 10^3/cmm (157-399); Red Blood Count 5.19 10^6/uL (3.85-5.65); Red Cell Distribution Width 17.7 % (12.1-15.1); White Blood Count 23.94 10^3/uL (3.29-11.43)
[2023-06-07 08:24] LABS: C Reactive Protein 11.6 mg/L (0.0-4.9)
[2023-06-07 08:31] LABS: Anion Gap 16.9 (5-19); Blood Urea Nitrogen 24 mg/dL (8-23); Calcium 8.2 mg/dL (8.5-10.5); Carbon Dioxide 24 mmol/L (22-29); Chloride 93 mmol/L (98-107); Creatinine Clr Calc Pharmacy 111.5499; Glomerular Filtration Rate 113.5 mL/min (90-130); Glucose 122 mg/dL (65-115); NT Pro B Type Natriuretic Pept 2443 pg/mL (0-125); Osmolality Calculated 273 mOsm/kg (285-295); Potassium 4.9 mmol/L (3.5-5.1); Sodium 129 mmol/L (136-145)
[2023-06-07 08:46] LABS: Slide Review Slide Review Perform
[2023-06-07 08:49] LABS: Absolute Segmented Neutrophil 18.7 10/cmm (1.6-7.1); Band Neutrophils Absolute 1.2 10^3/cmm (0.0-1.2); Eosinophils 0 %; Lymphocytes 11 %; Lymphocytes Absolute 2.6 10^3/cmm (1.2-3.4); Monocytes Absolute 0.7 10^3/cmm (0.1-0.6); Segmented Neutrophils 78 %; Total Cells Counted 100 (0-100)
[2023-06-07 08:50] LABS: Absolute Neutrophil 19.9 10^3/cmm (1.4-6.5); Anisocytosis 1+; Platelet Estimate Increased (Normal); Poikilocytosis 1+
[2023-06-07] MEDS: phenyleph-mineral oil-petrolat Oint 28 gm 1 APPLIC PR ×4 (08:54→21:31)
[2023-06-07] MEDS: sodium chloride 1 gm Tablet PO ×2 (08:54→17:20)
[2023-06-07] MEDS: apixaban 5 mg Tablet PO ×2 (08:54→17:20)
[2023-06-07] MEDS: morphine ER (12 HR) 15 mg Tablet PO ×2 (08:54→21:30)
[2023-06-07] MEDS: pantoprazole DR 40 mg Tablet PO ×2 (08:54→17:20)
[2023-06-07] MEDS: amiodarone 200 mg Tablet 400 MG PO (08:54)
[2023-06-07] MEDS: spironolactone 25 mg Tablet PO (08:54)
[2023-06-07] MEDS: metoprolol tartrate 25 mg Tablet PO ×2 (08:54→21:31)
[2023-06-07] MEDS: polyethylene glycol 3350 Pkt 17 gm PO ×2 (08:54→17:20)
[2023-06-07] MEDS: azithromycin 500 MG in sodium chloride 0.9% 250 ML 250 MG IV (14:11)
[2023-06-07] MEDS: cefTRIAXone 1,000 MG in sodium chloride 0.9% (plus) 50 ML 100 MG IV (14:11)
--- NOTE | 2023-06-07 15:39 | P.PN_ITS ---
Subjective 2 Subjective: Patient was seen this morning, he tells me last night he had a large bowel movement he feels significantly better, no fevers, no chills, does have a cough, we discussed his leukocytosis and his pneumonia will continue antibiotics, he diuresed also 4 L yesterday, currently on room air, afebrile Vitals/I&O/Wt Last Vital Signs Temp 97.6 F 06/07/23 12:11 Pulse 63 06/07/23 12:11 Resp 18 06/07/23 12:11 BP 103/78 06/07/23 12:11 Pulse Ox 94 06/07/23 12:11 O2 Del Method Room Air 06/07/23 12:11 O2 Flow Rate 2 06/03/23 16:55 06/07/23 06/07/23 06/07/23 06:59 14:59 22:59 Intake Total 320 / 2060 1410 / 1410 250 / 1660 Output Total 1400 / 3150 1999 / 1999 Balance -1080 / -1090 -590 / -590 250 / -340 Weight last 48 hrs Weight 68.538 kg Weight 68.039 kg Physical Exam 2 Const: COMMON NORMALS: no acute distress and patient oriented x3 Resp: COMMON NORMALS: normal respiratory effort, No retractions and No use of accessory muscles AUSCULTATION: crackles and wheezes Cardio: COMMON NORMALS: regular rate, regular rhythm, S1 normal heart sound present and S2 normal heart sound present RATE: regular rate RHYTHM: r egular rhythm HEART SOUNDS: S1 normal heart sound present and S2 normal heart sound present GI: COMMON NORMALS: Normal to inspection, nondistended, normoactive bowel sounds present and non-tender Extremity: COMMON NORMALS: no pedal edema Neuro: COMMON NORMALS: patient oriented x3 Psych: COMMON NORMALS: mental status grossly normal Urinary Catheter Management: Flaherty: Cath Placed During This Visit: yes Reason for Continuing Indwelling Catheter: Other Urinary Catheter Date of Insertion: 06/02/23 Urinary Catheter Time of Insertion: 14:25 Data 06/07/23 07:50 06/07/23 07:50 Micro: Microbiology 06/06/23 10:16 Blood Culture - Preliminary Blood NEGATIVE TO DATE 06/06/23 10:22 Blood Culture - Preliminary Blood NEGATIVE TO DATE A&P Assessment and plan (1) Constipation, acute: (2) Atrial fibrillation with rapid ventricular response: (3) Immunocompromised due to corticosteroids: (4) Metastatic renal cell carcinoma: Qualifiers: Laterality: right Qualified Code(s): C64.1 - Malignant neoplasm of right kidney, except renal pelvis (5) Hyperkalemia: (6) Elevated lactic acid level: (7) Pneumonia: Qualifiers: Laterality: right Lung location: lower lobe of lung Pneumonia type: d ue to unspecified organism Qualified Code(s): J18.9 - Pneumonia, unspecified organism (8) Bradycardia: (9) Hyponatremia: Plan Right lower lobe pneumonia ? Immunocompromise state ? Seen on chest x-ray ? White blood cell count 1 up to 23,000 ? Plan ? Rocephin ?azithromycin ? Given that his pneumonia is in the right lower lobe, concern for possible aspiration, placed his dysphagia level 4 diet, extremely thick pur?ed, aspiration precautions, speech therapy eval ? Monitor respiratory status closely Serum sodium 129, likely dropping due to diuresis, monitor A-fib with RVR, now with bradycardia ? Decrease amiodarone to 400 mg daily ? Decrease metoprolol to 25 twice daily -Continue Eliquis ?Monitor bradycardia Hyperkalemia, BMP, Kayexalate Chronic leukocytosis, likely secondary to chronic Decadron, Severe constipation ? Likely secondary to chronic narcotics ? Received Kayexalate ? Continue MiraLAX 17 g twice daily ? Lactulose 20 g every 12 hours ? Senna ? Patient had a large bowel movement yesterday, continue MiraLAX, lactulose -1. Diffuse constipation and obstipation. No mechanical obstruction identified. Marked rectal distention. COPD not in exacerbation History of metastatic renal cell carcinoma 1. Diffuse constipation and obstipation. No mechanical obstruction identified. Marked rectal distention. 2. Patient is status post RIGHT nephrectomy. 3. Large necrotic mass at the RIGHT lung base with additional bilateral smaller metastatic nodules in the lower lung mas. Highly suspicious for pulmonary neoplasm with metastasis. 4. Numerous metastatic lesions within the liver. 5. Solid enhancing mass in the inferior medial LEFT kidney measures 2.4 x 2.7 cm. Highly suspicious for renal cell neoplasm. 6. Retroperitoneal adenopathy. Hypervascular metastatic lymphadenopathy. 7. Abnormal enhancement in the IVC is highly suspicious for tumor involvement. 8. Metastatic osseous disease. Lytic destructive bone changes are most significant in the LEFT ilium and the LEFT hip. The sclerotic changes reidentified also at L2 and L5. -Currently patient has not not undergone chemotherapy or radiation therapy Full code ? Eliquis for DVT prophylaxis Plan for today monitor respiratory status closely, continue IV antibiotics, monitor heart rates monitor sodium Attestations 2 Medical Necessity Statement*: patient requires hospitalization for right lower lobe pneumonia, hyponatremia, A-fib, immunocompromise state, Diagnoses Constipation, acute K59.00 Atrial fibrillation with rapid ventricular response I48.91 Immunocompromised due to corticosteroids D84.821; T38.0X5A; Z79.52 Renal cell carcinoma of right kidney metastatic to other site C64.1 Laterality: right Hyperkalemia E87.5 Elevated lactic acid level R79.89 Pneumonia of right lower lobe due to infectious organism J18.9 Laterality: right Lung location: lower lobe of lung Pneumonia type: due to unspecified organism Bradycardia R00.1 Hyponatremia E87.1
[2023-06-08 03:52] VITALS: BP 108/72; PULSE 81; RESP 17; TEMP 36.7; O2SAT 93
[2023-06-08] MEDS: sennosides 8.6 mg Tablet 17.1999999999999993 MG PO (05:15)
[2023-06-08] MEDS: lactulose oral liq 20 gm/30 mL UDC PO (05:15)
[2023-06-08] MEDS: midodrine 5 mg TABLET 10 MG PO (05:16)
[2023-06-08] MEDS: dexamethasone 4 mg Tablet PO (05:16)
[2023-06-08 06:02] LABS: Hematocrit 45.9 % (37-53); Mean Corpuscular HGB Conc 30.5 g/dL (30-55); Mean Corpuscular Hemoglobin 26.7 pg (27-33); Mean Corpuscular Volume 87.4 fl (82-101); Mean Platelet Volume 9.5 fL (7.4-10.4); Platelet Count 389 10^3/cmm (157-399); Red Blood Count 5.25 10^6/uL (3.85-5.65); Red Cell Distribution Width 17.9 % (12.1-15.1); White Blood Count 22.82 10^3/uL (3.29-11.43)
[2023-06-08 06:23] LABS: C Reactive Protein 13.2 mg/L (0.0-4.9)
[2023-06-08 06:29] LABS: Anion Gap 14.4 (5-19); Blood Urea Nitrogen 21 mg/dL (8-23); Calcium 7.5 mg/dL (8.5-10.5); Carbon Dioxide 24 mmol/L (22-29); Chloride 100 mmol/L (98-107); Creatinine Clr Calc Pharmacy 130.9396; Glomerular Filtration Rate 135.6 mL/min (90-130); Glucose 137 mg/dL (65-115); NT Pro B Type Natriuretic Pept 1567 pg/mL (0-125); Osmolality Calculated 283 mOsm/kg (285-295); Potassium 4.4 mmol/L (3.5-5.1); Sodium 134 mmol/L (136-145)
[2023-06-08 06:45] LABS: Basophils % 0.1 %; Lymphocytes # 1.9 10^3/uL (0.8-4.8); Lymphocytes % 8.2 %; Monocytes # 1.5 10^3/uL (0.2-0.9); Monocytes % 6.7 %; Neutrophils # 17.38 10^3/uL (1.8-7.7); Neutrophils % 76.2 %; Nucleated Red Blood Cells % 0 %
[2023-06-08 06:46] LABS: Slide Review Slide Review Perform
[2023-06-08 07:00] VITALS: O2SAT 92
[2023-06-08 07:42] VITALS: BP 106/73; PULSE 62; RESP 17; O2SAT 93
[2023-06-08] MEDS: spironolactone 25 mg Tablet PO (08:20)
[2023-06-08] MEDS: metoprolol tartrate 25 mg Tablet PO (08:20)
[2023-06-08] MEDS: apixaban 5 mg Tablet PO (08:20)
[2023-06-08] MEDS: sodium chloride 1 gm Tablet PO (08:20)
[2023-06-08] MEDS: polyethylene glycol 3350 Pkt 17 gm PO (08:21)
[2023-06-08] MEDS: pantoprazole DR 40 mg Tablet PO (08:21)
[2023-06-08] MEDS: amiodarone 200 mg Tablet 400 MG PO (08:21)
[2023-06-08 08:25] VITALS: PULSE 61; RESP 18; O2SAT 92
[2023-06-08] MEDS: morphine ER (12 HR) 15 mg Tablet PO (08:56)
[2023-06-08] MEDS: phenyleph-mineral oil-petrolat Oint 28 gm 1 APPLIC PR (08:57)
--- NOTE | 2023-06-08 11:09 | P.DS_ITS ---
Discharge Providers Date of Admission: 06/02/23 16:08 Date of Discharge: June 08, 2023 Attending Provider at Admission: Louis Brown MD Attending Provider at Discharge: Fan Gould MD Primary Care Provider: Swapnil Acosta Diagnoses at Discharge Discharge Diagnosis (1) Constipation, acute: Status: Acute (2) Atrial fibrillation with rapid ventricular response: Status: Resolved (3) Immunocompromised due to corticosteroids: Status: Inactive (4) Metastatic renal cell carcinoma: Status: Resolved Qualifiers: Laterality: right Qualified Code(s): C64.1 - Malignant neoplasm of right kidney, except renal pelvis (5) Hyperkalemia: Status: Acute (6) Elevated lactic acid level: Status: Acute (7) Pneumonia: Status: Resolved Qualifiers: Laterality: right Lung location: lower lobe of lung Pneumonia type: due to unspecified organism Qualified Code(s): J18.9 - Pneumonia, unspecified organism (8) Bradycardia: Status: Acute (9) Hyponatremia: Status: Acute Reason for Visit Reason for Visit: Abd Pain, Constipation Hospital Course Hospital Course Zhang Escamilla is a 62 year old male with a past medical history of advanced COPD, active smoker, history of right nephrectomy, recently diagnosed with metastatic renal cell carcinoma metastatic to vertebral spine, to the lungs, with brain metastasis on dexamethasone, currently on plans of chemo and radiation therapy, history of GI bleed, history of atrial fibrillation, who presents [facility] due to complaints of severe constipation, he was diagnosed with chronic A-fib with RVR, right lower lobe pneumonia as well, he stayed on IV ceftriaxone and azithromycin, cultures remain negative, white count trending down, patient has had more than 3 episodes of bowel movement before her discharge, patient was trying to leave A however it was in the best interest of the patient that I prescribed him appropriate medications at the time of discharge and give him discharge instructions, he is being discharged on 06/07, he is afebrile, hemodynamically stable, I have discontinued spironolactone he may resume his Eliquis, metoprolol with amiodarone. I will also give him 6 tablets of salt for the next few days. He does not have to keep taking salt tablets on daily basis. Physical Exam Narrative: Awake and alert Currently on room air GCS 15 Awake Hemodynamically stable Abdomen soft Urinary Catheter Management: Flaherty: Cath Placed During This Visit: yes Reason for Continuing Indwelling Catheter: Other Urinary Catheter Date of Insertion: 06/02/23 Urinary Catheter Time of Insertion: 14:25 Discharge Data Studies Completed and Pending Completed Studies During Hospitalization Category Date Time Status CT abdomen pelvis w con* [id number] Stat Cat Scan 06/02/23 11:59 Completed XR KUB portable [id number] Routine Exams 06/06/23 08:10 Completed XR chest 1V portable [id number] Routine Exams 06/06/23 08:10 Completed XR chest 1V portable [id number] Stat Exams 06/02/23 11:58 Completed Pending at discharge Category Date Time Status Basic Metabolic Panel AM LABS Lab 06/09/23 04:00 Ordered Blood Culture Stat Lab 06/06/23 10:16 Results C Reactive Protein AM LABS Lab 06/09/23 04:00 Ordered Complete Blood Count w/Auto AM LABS Lab 06/09/23 04:00 Ordered NT Pro B Type Natriuretic Pept QAM Lab 06/09/23 06:00 Ordered Sputum Culture and Gram Stain Stat Lab 06/07/23 15:40 Uncollected Radiology Impressions Chest X-Ray 06/06/23 08:10 IMPRESSION: Right lower lobe pneumonia. KUB X-Ray 06/06/23 08:10 IMPRESSION: Large amount of stool throughout the colon and rectum. Findings are consistent with constipation. Laboratory Results WBC 22.82 10^3/uL (3.29-11.43) H 06/08/23 05:41 RBC 5.25 10^6/uL (3.85-5.65) 06/08/23 05:41 Hgb 14.00 g/dL (11.27-16.99) 06/08/23 05:41 Hct 45.9 % (37-53) 06/08/23 05:41 MCV 87.4 fl (82-101) 06/08/23 05:41 MCH 26.7 pg (27-33) L 06/08/23 05:41 MCHC 30.5 g/dL (30-55) 06/08/23 05:41 RDW 17.9 % (12.1-15.1) H 06/08/23 05:41 Plt Count 389 10^3/cmm (157-399) 06/08/23 05:41 MPV 9.5 fL (7.4-10.4) 06/08/23 05:41 Neut % (Auto) 76.2 % 06/08/23 05:41 Lymph % (Auto) 8.2 % 06/08/23 05:41 Will % (Auto) 6.7 % 06/08/23 05:41 Eos % (Auto) 0.0 % 06/08/23 05:41 Baso % (Auto) 0.1 % 06/08/23 05:41 Neut # (Auto) 17.38 10^3/uL (1.8-7.7) H 06/08/23 05:41 Lymph # (Auto) 1.9 10^3/uL (0.8-4.8) 06/08/23 05:41 Will # (Auto) 1.5 10^3/uL (0.2-0.9) H 06/08/23 05:41 Eos # (Auto) 0.0 10^3/uL (0.0-0.8) 06/08/23 05:41 Baso # (Auto) 0.0 10^3/uL (0.0-0.1) 06/08/23 05:41 Nucleated RBC % (auto) 0 % 06/08/23 05:41 Total Counted 100 (0-100) 06/07/23 07:50 Atypical Lymphs % 0.0 % (0-5) 06/07/23 07:50 Absolute Neutrophils 19.9 10^3/cmm (1.4-6.5) H 06/07/23 07:50 Segmented Neutrophils 78 % 06/07/23 07:50 Abs Segm Neuts (Man) 18.7 10/cmm (1.6-7.1) H 06/07/23 07:50 Band Neutrophils 5.0 % 06/07/23 07:50 Abs Band Neuts (Man) 1.2 10^3/cmm (0.0-1.2) 06/07/23 07:50 Absolute Lymphocytes 2.6 10^3/cmm (1.2-3.4) 06/07/23 07:50 Lymphocytes (Manual) 11 % 06/07/23 07:50 Monocytes (Manual) 3.0 % 06/07/23 07:50 Absolute Monocytes 0.7 10^3/cmm (0.1-0.6) H 06/07/23 07:50 Eosinophils (Manual) 0 % 06/07/23 07:50 Absolute Eosinophils 0.0 10^3/cmm (0.0-0.7) 06/07/23 07:50 Basophils (Manual) 0.0 % 06/07/23 07:50 Absolute Basophils 0.0 10^3/cmm (0.0-0.2) 06/07/23 07:50 Metamyelocytes 3.0 % 06/07/23 07:50 Nucleated RBCs # 0.0 /100WBC 06/08/23 05:41 Platelet Estimate Increased (Normal) 06/07/23 07:50 Poikilocytosis 1+ H 06/07/23 07:50 Anisocytosis 1+ H 06/07/23 07:50 Sodium 134 mmol/L (136-145) L 06/08/23 05:41 Potassium 4.4 mmol/L (3.5-5.1) 06/08/23 05:41 Chloride 100 mmol/L (98-107) 06/08/23 05:41 Carbon Dioxide 24 mmol/L (22-29) 06/08/23 05:41 Anion Gap 14.4 (5-19) 06/08/23 05:41 BUN 21 mg/dL (8-23) 06/08/23 05:41 Creatinine 0.6 mg/dL (0.7-1.2) L 06/08/23 05:41 GFR Calculation 135.6 mL/min (90-130) H 06/08/23 05:41 Glucose 137 mg/dL (65-115) H 06/08/23 05:41 POC Glucose 90 mg/dL (70-110) 06/02/23 14:52 Calculated Osmolality 283 mOsm/kg (285-295) L 06/08/23 05:41 Lactic Acid 1.3 mmol/L (0.5-2.2) 06/03/23 04:40 Lactic Acid (Sepsis) 2.4 mmol/L (0.5-2.2) H 06/02/23 17:32 Calcium 7.5 mg/dL (8.5-10.5) L 06/08/23 05:41 Magnesium 1.9 mg/dL (1.7-2.3) 06/05/23 17:51 Total Bilirubin 1.3 mg/dL (0.15-1.2) H 06/02/23 12:17 AST 14 U/L (0-40) 06/02/23 12:17 ALT 25 U/L (0-41) 06/02/23 12:17 Alkaline Phosphatase 146 U/L (40-130) H 06/02/23 12:17 Troponin T Baseline 11 ng/L (0-15) 06/05/23 11:43 Troponin T 120 Minute 20.57 ng/L (0-15) H 06/02/23 14:26 Delta Troponin T -0.43 ABS# (0-10) L 06/02/23 14:26 Troponin T Hi Sens 6Hr 11.87 ng/L (0-15) 06/05/23 17:51 Troponin T Hi Sens 6Hr Delta 0.87 ng/L (0-12) 06/05/23 17:51 C-Reactive Protein 13.2 mg/L (0.0-4.9) H 06/08/23 05:41 NT-Pro-B Natriuret Pep 1567 pg/mL (0-125) H 06/08/23 05:41 Total Protein 5.7 g/dL (6.6-8.7) L 06/02/23 12:17 Albumin 3.1 g/dL (3.5-5.2) L 06/02/23 12:17 Globulin 2.6 g/dL (1.3-4.6) 06/02/23 12:17 Lipase 10 U/L (13-60) L 06/02/23 12:17 Procalcitonin 0.06 ng/mL (0-0.5) 06/06/23 04:39 TSH 5.68 uIU/mL (0.27-4.20) H 06/02/23 14:26 Urine Color Dark yellow (Yellow) 06/06/23 18:32 Urine Appearance Clear (CLEAR) 06/06/23 18:32 Urine pH 7 (5-7) 06/06/23 18:32 Ur Specific [place] 1.005 (1.005-1.030) 06/06/23 18:32 Urine Protein Neg (Negative) 06/06/23 18:32 Urine Glucose (UA) Norm (Normal) 06/06/23 18:32 Urine Ketones Negative (Negative) 06/06/23 18:32 Urine Blood Neg (Negative) 06/06/23 18:32 Urine Nitrate Negative (Negative) 06/06/23 18:32 Urine Bilirubin Neg (Negative) 06/06/23 18:32 Urine Urobilinogen 4 mg/dL (Negative) H 06/06/23 18:32 Ur Leukocyte Esterase Negative (Negative) 06/06/23 18:32 Urine RBC 0-4 /hpf (0-2) H 06/02/23 14:16 Urine WBC Rare /hpf (0-5) 06/02/23 14:16 Ur Squamous Epith Cells None /hpf (0-5) 06/02/23 14:16 Amorphous Sediment Not Reportable 06/02/23 14:16 Urine Bacteria None /hpf (NONE) 06/02/23 14:16 Hyaline Casts 0-4 /lpf H 06/02/23 14:16 Urine Mucus Trace /hpf 06/02/23 14:16 Vitals Last Vital Signs Temp 98.1 F 06/08/23 03:52 Pulse 61 06/08/23 08:25 Resp 18 06/08/23 08:25 BP 106/73 06/08/23 07:42 Pulse Ox 92 06/08/23 08:25 O2 Del Method Room Air 06/08/23 08:25 O2 Flow Rate 2 06/03/23 16:55 Discharge Plan Discharge Patient Disposition: Home Condition: Stable Prescriptions: New amiodarone [Pacerone] 200 mg Tablet 400 mg PO DAILY Qty: 120 3RF sodium chloride 1,000 mg Tablet,Soluble 1,000 mg PO BID Qty: 6 0RF levofloxacin 750 mg tablet 750 mg PO DAILY 7 Days Qty: 7 0RF Continued morphine 15 mg tablet extended release 15 mg PO Q12H oxycodone-acetaminophen 5-325 mg tablet 1 tab PO Q6H PRN (Reason: break through pain) pantoprazole 40 mg tablet,delayed release (DR/EC) 40 mg PO BID axitinib 5 mg tablet 5 mg PO BID Qty: 60 11RF amiodarone 200 mg tablet 200 mg PO DAILY levofloxacin 500 mg tablet 500 mg PO DAILY lactulose 10 gram/15 mL solution See Rx Instructions .ROUTE .COMPLEX Rx Instructions: DIRECTED metoprolol tartrate 100 mg tablet 100 mg PO BID Qty: 60 3RF naloxone [Narcan] 4 mg/actuation Nerinx,Non-Aerosol See Rx Instructions .ROUTE .COMPLEX Rx Instructions: Nerinx 1 dose into ONE nostril; alternate nostrils w each dose until help arrives dexamethasone 4 mg Tablet 4 mg PO Q12H Qty: 30 0RF diltiazem HCl [DILT-XR] 180 mg Capsule,Ext.Rel 24h Degradable 180 mg PO Q24H Qty: 30 0RF furosemide [Lasix] 40 mg tablet 40 mg PO DAILY Qty: 30 0RF Eliquis 5 mg tablet 5 mg PO BID Qty: 60 0RF Discontinued spironolactone 25 mg tablet 25 mg PO DAILY Discharge Orders: Discharge Order (Routine); Ordered 06/08/23 Ordered By: Fan Gould Referrals: Swapnil Acosta [Primary Care Provider] - 06/11/23 1:20 pm (You will need to bring records from Hospitalization with you. ) Discharge Diet: Cardiac Discharge Activity: Limit activity as instructed Patient Instructions: Opioid Safety, Pain Management Discharge Attestations Time Spent in Discharge Care*: greater than 30 min Quality Metrics Clinical Quality Measures [ No reported AMI, CVA or VTE this stay] Coding Level of Care Code Acute Code for Chg Fwd Diagnoses Constipation, acute K59.00 Atrial fibrillation with rapid ventricular response I48.91 Immunocompromised due to corticosteroids D84.821; T38.0X5A; Z79.52 Renal cell carcinoma of right kidney metastatic to other site C64.1 Laterality: right Hyperkalemia E87.5 Elevated lactic acid level R79.89 Pneumonia of right lower lobe due to infectious organism J18.9 Laterality: right Lung location: lower lobe of lung Pneumonia type: due to unspecified organism Bradycardia R00.1 Hyponatremia E87.1
[2023-06-08 11:43] VITALS: BP 98/62; PULSE 91; RESP 17; TEMP 36.4; O2SAT 93
[2023-06-08 14:57] VITALS: BP 98/62; PULSE 91; RESP 17; TEMP 36.4; O2SAT 93
== END 2023-06-08 13:15 | disposition home or self-care (01) | DRG 308 ==
LOC: ER 14:21 → ER IP 16:09 → ICU 17:41 → MEDSURG 06-03 16:38
PROVIDERS: Admitting Provider Family Medicine; Emergency Provider Family Medicine; PCP Family Medicine; Visit Provider Internal Medicine
DX: I48.20 Chronic atrial fibrillation, unspecified (principal); J18.9 Pneumonia, unspecified organism; C64.1 Malignant neoplasm of right kidney, except renal pelvis; J44.0 Chronic obstructive pulmonary disease with (acute) lower respiratory infection; C78.02 Secondary malignant neoplasm of left lung; C78.01 Secondary malignant neoplasm of right lung; C79.51 Secondary malignant neoplasm of bone; C79.31 Secondary malignant neoplasm of brain; E46 Unspecified protein-calorie malnutrition; D84.821 Immunodeficiency due to drugs; E87.20 Acidosis, unspecified; E87.1 Hypo-osmolality and hyponatremia; F17.200 Nicotine dependence, unspecified, uncomplicated; K59.03 Drug induced constipation; T40.605A Adverse effect of unspecified narcotics, initial encounter; T38.0X5A Adverse effect of glucocorticoids and synthetic analogues, initial encounter; E87.5 Hyperkalemia; Z68.20 Body mass index [BMI] 20.0-20.9, adult; Z79.60 Long term (current) use of unspecified immunomodulators and immunosuppressants; Z79.01 Long term (current) use of anticoagulants; Z90.5 Acquired absence of kidney
CPT/HCPCS: 36415; 36416; 51702; 71045; 74018; 74177; 80048; 80053; 81001; 81003; 82962; 83605; 83690; 83735; 83880; 84145; 84443; 84484; 85007; 85025; 86140; 87040; 92610; 93005; 94664; 96365; 96366; 96375; 96376; 99291; A4222; J0283; J0456; J0696; J1815; J2270; J2405; J3490; J7030; J7050; J8540; Q9967

== ENCOUNTER 2023-07-09 09:07 | Inpatient (IN) | payer OTHER, SELFPAY ==
[2023-07-09] VITALS (36 sets, daily range): BP systolic 85–131; BP diastolic 37–95; PULSE 70–110; RESP 14–29; TEMP 35.9–36.7; O2SAT 88–96; BMI 17.4
--- NOTE | 2023-07-09 09:14 | ECG_ITS ---
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 Measurements Intervals [place] Rate: 70 P: 92 [place]: 366 QRS: 99 QRSD: 122 T: 72 QT: 400 QTc: 434 Interpretive Statements Irregular rhythm, likely atrial fibrillation BORDERLINE RIGHT AXIS DEVIATION [QRS AXIS > 90] MODERATE INTRAVENTRICULAR CONDUCTION DELAY [110+ ms QRS DURATION] ABNORMAL RHYTHM ECG No previous ECG available for comparison Electronically Signed On 07-09-2023 15:48:54 CDT by Jun Ahmadi M.D. [email or web address] f
--- NOTE | 2023-07-09 09:18 | XR_ITS ---
WS: [id number] Exam: XR chest 1V portable [id number] Date/Time of Exam: 07/09/2023 9:22 AM Reason For Exam: dyspnea/cough No previous exams. Bibasal infiltrates and areas of atelectasis. There are also several scattered ill-defined nodular de nsities noted. No pneumothorax. No pleural effusion. Cardiomediastinal silhouette is unremarkable. [place] structures are intact. XR/XR chest 1V portable [id number] IMPRESSION: 1. Bibasal infiltrates with associated atelectasis. 2. Several scattered ill-defined nodular densities are identified in both lungs . Nonemergent contrast CT scan of the chest would be indicated for follow-up.
--- NOTE | 2023-07-09 10:22 | ED_ITS ---
HPI - SOB/Dyspnea 2 General: Chief Complaint: Shortness of Breath/Dyspnea Stated Complaint: sob Time Seen by Provider: 07/09/23 09:18 Source: patient Mode of arrival: EMS History of Present Illness: HPI Narrative: 63-year-old male was diagnosed with lung cancer 2 months ago he tells me he has known mets to his kidney into his lumbar spine he has not received any treatment because of some logistical issues. He is complaining of increasing shortness of breath no productive cough no hemoptysis no fever sweats or chills he also has some pain in the left lower ribs. He normally is on oxygen as needed. When I entered the room patient is on 3 L by nasal cannula we are unable to get a sat at his fingertip because of poor circulation. On the vital signs it was registered as being 92% earlier. He denies substernal chest pain. MD elicited complaint: shortness of breath Pertinent past history: COPD Exacerbating factors: nothing Relieving factors: nothing Known history of: COPD Associated symptoms: Deny abdominal pain, chest congestion, chest pain, cough, diaphoresis, dizziness, extremity pain, fever(s), hemoptysis, lightheadedness, myalgias, nausea, orthopnea, palpitations, paresthesias, polydipsia, polyuria, rash, sense of impending doom, syncope or vomiting Treatment prior to arrival: oxygen Review of Systems 2 Const: Denies: fever(s), chills or diaphoresis Card: Denies: chest pain, palpitations, lightheadedness, syncope or orthopnea Resp: Denies: dyspnea, hemoptysis or chest congestion GI: Denies: abdominal pain, nausea or vomiting : Denies: dysuria, urinary frequency or urinary urgency Musc: Denies: neck pain, back pain or extremity pain Skin/Breast: Denies: rash Neuro: Denies: dizziness Endo: Denies: polyuria or polydipsia PFSH ED 2 PFSH: Medical History Hyponatremia Bradycardia Elevated lactic acid level Hyperkalemia Constipation, acute Immunocompromised due to corticosteroids Protein calorie malnutrition Physical deconditioning Acute exacerbation of CHF (congestive heart failure) Systolic CHF, acute Metastatic renal cell carcinoma Prostate cancer screening Bladder wall thickening Lung nodule < 6cm on CT 2.5cm right lower lobe H/O drug abuse Smoker 1PPD Renal cell carcinoma Surgical History H/O right nephrectomy Family History Mother Stomach cancer Father Bone cancer Social History Smoking and tobacco/nicotine status: current every day tobacco/nicotine user Alcohol intake: current Alcohol intake frequency: 0-2 Drinks per Day Substance/Drug Use: never Physical Exam 2 Const: COMMON NORMALS: no acute distress GENERAL APPEARANCE: cooperative and comfortable ORIENTATION/CONSCIOUSNESS: Yes awake, Yes oriented to person, Yes oriented to place and Yes oriented to time HENMT: COMMON NORMALS: normocephalic, atraumatic and hearing grossly normal bilaterally HEAD & SCALP: normocephalic and atraumatic Resp: COMMON NORMALS: normal respiratory effort, No retractions, No use of accessory muscles and clear to auscultation bilaterally AUSCULTATION: clear to auscultation bilaterally Cardio: COMMON NORMALS: regular rate, regular rhythm and No murmurs present (Cardio) RATE: regular rate RHYTHM: regular rhythm GI: COMMON NORMALS: Soft to palpation and No hepatosplenomegaly present A USCULTATION: Yes normoactive bowel sounds PALPATION: Yes Soft to palpation, No Tenderness to palpation present (GI), No Guarding due to palpation present (GI) and Yes No hepatosplenomegaly present Extremity: COMMON NORMALS: normal to inspection, capillary refill normal, no clubbing, cyanosis or edema, no calf tenderness and no pedal edema Neuro: SENSORIUM/ORIENTATION: Yes oriented to person, Yes oriented to place and Yes oriented to time Skin: COMMON NORMALS: no rashes or lesions noted GENERAL SKIN EXAM: no rashes or lesions noted Course 2 Vital Signs: Vital signs: Vital Signs Temperature 97.8 F 07/10/23 08:30 Pulse Rate 96 07/10/23 08:30 Respiratory Rate 12 07/10/23 08:30 Blood Pressure 96/60 07/10/23 08:30 Pulse Oximetry 91 07/10/23 08:30 Oxygen Delivery Me thod Nasal Cannula 07/10/23 07:48 Oxygen Flow Rate 5 07/10/23 07:48 Fraction of Inspir ed Oxygen 40 07/09/23 12:45 MDM - SOB/Dyspnea Medical Decision Making Patient presents tachypneic and tachycardic CT shows extensive PE. Suspect he may have a pulmonary infarct in the right lower lobe accounting for his pain. He also has evidence of pneumonia. There is evidence of significant metastasis as well. Will admit started on oral antibiotics and heparin. Consult Dr. Busch. Medical Records I reviewed the patient's medical records. Lab Data I reviewed the patient's lab results. 07/10/23 03:29 07/10/23 03:29 Labs/Radiology: Radiology Impressions Chest X-Ray 07/09/23 09:18 IMPRESSION: 1. Bibasal infiltrates with associated atelectasis. 2. Several scattered ill-defined nodular densities are identified in both lungs. Nonemergent contrast CT scan of the chest would be indicated for follow-up. Chest/Abdomen/Pelvis CT 07/09/23 11:42 IMPRESSION: 1. Acute pulmonary embolus described above. No evidence of RIGHT heart strain. Poor perfusion to the majority of the LEFT lower lobe 2. RIGHT lower lobe consolidation compatible with pneumonia. In addition there is a heterogeneously enhancing necrotic component that may present neoplasm 3. Groundglass infiltrates with intralobular septal thickening inferior segment LEFT upper lobe and LEFT lower lobe may be due to pneumonia, lymphangitic metastasis, versus ischemia. 4. RIGHT infrahilar mass or lymphadenopathy measuring 2.2 x 3.6 cm. 5. A few LEFT lower lobe nodules likely metastatic. A few additional subcentimeter nodules in the RIGHT upper lobe. 6. Sclerotic metastasis L2 vertebral body. 7. Enhancing solid LEFT renal lesion measuring 2.3 x 1 6.7 cm is compatible with renal cell carcinoma. No hydronephrosis in the LEFT kidney. 8. Prior RIGHT nephrectomy. 9. Patulous distention with constipation involving the RIGHT colon and transverse colon extending to the splenic flexure. Findings likely due to adynamic ileus. Markedly tortuous sigmoid colon. Findings can be followed up with colonoscopy to exclude obstructing stricture. Sigmoid colon is decompressed. 10. Numerous small hepatic metastasis. 11. Small amount of free fluid in the pelvis. 12. Distended stomach with air-fluid level. 13. Large destructive metastasis involving the LEFT iliac wing with a soft tissue component. This measures approximately 3.6 x 2.6 cm. 14. Para-aortic retroperitoneal lymphadenopathy. 15. Filling defect suspicious for tumor thrombus or bland thrombus involving the inferior vena cava at the level of the kidneys. Intrahepatic IVC appears patent. 16. Recommend lower extremity venous ultrasound for DVT Notified Bridger Sotelo DO at 07/09/2023 1:33 PM. Venous Duplex 07/09/23 13:36 IMPRESSION: Partial thrombus within the RIGHT mid/distal femoral vein. Partial thrombus within the superficial bilateral great saphenous veins below the knee. Laboratory Results WBC 14.15 10^3/uL (3.29-11.43) H 07/09/23 10:20 RBC 6.08 10^6/uL (3.85-5.65) H 07/09/23 10:20 Hgb 16.00 g/dL (11.27-16.99) 07/09/23 10:20 Hct 51.9 % (37-53) 07/09/23 10:20 MCV 85.4 fl (82-101) 07/09/23 10:20 MCH 26.3 pg (27-33) L 07/09/23 10:20 MCHC 30.8 g/dL (30-55) 07/09/23 10:20 RDW 21.2 % (12.1-15.1) H 07/09/23 10:20 Plt Count 398 10^3/cmm (157-399) 07/09/23 10:20 MPV 10.4 fL (7.4-10.4) 07/09/23 10:20 Neut % (Auto) 75.4 % 07/09/23 10:20 Lymph % (Auto) 13.4 % 07/09/23 10:20 [place] % (Auto) 8.3 % 07/09/23 10:20 Eos % (Auto) 0.1 % 07/09/23 10:20 Baso % (Auto) 0.7 % 07/09/23 10:20 Neut # (Auto) 10.67 10^3/uL (1.8-7.7) H 07/09/23 10:20 Lymph # (Auto) 1.9 10^3/uL (0.8-4.8) 07/09/23 10:20 [place] # (Auto) 1.2 10^3/uL (0.2-0.9) H 07/09/23 10:20 Eos # (Auto) 0.0 10^3/uL (0.0-0.8) 07/09/23 10:20 Baso # (Auto) 0.1 10^3/uL (0.0-0.1) 07/09/23 10:20 Nucleated RBC % (auto) 0 % 07/09/23 10:20 Nucleated RBCs # 0.0 /100WBC 07/09/23 10:20 Specimen Type Arterial 07/09/23 12:01 Sample Site Brachial, left 07/09/23 12:01 ABG pH 7.31 (7.35-7.45) L 07/09/23 12:01 ABG pCO2 51.5 mmHg (35-45) H 07/09/23 12:01 ABG pO2 89.9 mmHg (80.0-100.0) 07/09/23 12:01 ABG PO2/FiO2 Ratio 0 07/09/23 12:01 ABG HCO3 25.6 mmol/L (22-26) 07/09/23 12:01 ABG O2 Saturation 96.1 07/09/23 12:01 ABG Base Excess -1.5 mmol/L (-2.0-2.0) 07/09/23 12:01 Duy Test N/a 07/09/23 12:01 A-a O2 Gradient 13.6 mmHg (5-10) H 07/09/23 12:01 Hematocrit 46.6 % (42-52) 07/09/23 12:01 Hgb O2 Saturation 94.5 % (95-100) L 07/09/23 12:01 Carboxyhemoglobin 1.4 %THgb (0.4-20.1) 07/09/23 12:01 Methemoglobin 0.2 % (0.4-1.5) L 07/09/23 12:01 Total Hemoglobin 15.2 g/dL (14-18) 07/09/23 12:01 Sodium 127.0 mmol/L (131-143) L 07/09/23 12:01 Potassium 5.9 mmol/L (3.5-5.0) H 07/09/23 12:01 Glucose 91.0 mg/dL (70-115) 07/09/23 12:01 Ionized Calcium Not Reportable 07/09/23 12:01 O2 Delivery Device Nc 07/09/23 12:01 O2 Liters/Min 4.0 % 07/09/23 12:01 FiO2 36.0 % 07/09/23 12:01 Dry Cleaning Checker ID Amh 07/09/23 12:01 Sodium 128 mmol/L (136-145) L 07/09/23 11:00 Sodium Cancelled 07/09/23 11:00 Potassium 6.4 mmol/L (3.5-5.1) H 07/09/23 11:00 Potassium Cancelled 07/09/23 11:00 Chloride 93 mmol/L (98-107) L 07/09/23 11:00 Chloride Cancelled 07/09/23 11:00 Carbon Dioxide 23 mmol/L (22-29) 07/09/23 11:00 Carbon Dioxide Cancelled 07/09/23 11:00 Anion Gap 18.4 (5-19) 07/09/23 11:00 Anion Gap Cancelled 07/09/23 11:00 BUN 38 mg/dL (8-23) H 07/09/23 11:00 BUN Cancelled 07/09/23 11:00 Creatinine 1.6 mg/dL (0.7-1.2) H 07/09/23 11:00 Creatinine Cancelled 07/09/23 11:00 GFR Calculation 43.7 mL/min (90-130) L 07/09/23 11:00 GFR Calculation Cancelled 07/09/23 11:00 Glucose 94 mg/dL (65-115) 07/09/23 11:00 Glucose Cancelled 07/09/23 11:00 Calculated Osmolality 275 mOsm/kg (285-295) L 07/09/23 11:00 Calculated Osmolality Cancelled 07/09/23 11:00 Calcium 7.6 mg/dL (8.5-10.5) L 07/09/23 11:00 Calcium Cancelled 07/09/23 11:00 Iron 18 ug/dL (59-158) L 07/09/23 11:00 TIBC 136 mcg/dl 07/09/23 11:00 % Saturation 13.2 % (20-50) L 07/09/23 11:00 Unsat Iron Binding 118 ug/dL (112-347) 07/09/23 11:00 Total Bilirubin 0.9 mg/dL (0.15-1.2) 07/09/23 11:00 AST 14 U/L (0-40) 07/09/23 11:00 ALT 9 U/L (0-41) 07/09/23 11:00 Alkaline Phosphatase 180 U/L (40-130) H 07/09/23 11:00 Creatine Kinase 28 U/L (39-308) L 07/09/23 11:00 Troponin T Baseline 41 ng/L (0-15) H 07/09/23 11:00 Total Protein 5.9 g/dL (6.6-8.7) L 07/09/23 11:00 Albumin 2.2 g/dL (3.5-5.2) L 07/09/23 11:00 Globulin 3.7 g/dL (1.3-4.6) 07/09/23 11:00 Lipase 5 U/L (13-60) L 07/09/23 11:00 Vitamin B12 > 2000 pg/mL (232-1245) H 07/09/23 11:00 Procalcitonin 1.85 ng/mL (0-0.5) H 07/09/23 11:00 TSH 15.09 uIU/mL (0.27-4.20) H 07/09/23 11:00 Random Cortisol 30.81 ug/dL (2.47-19.5) H 07/09/23 11:00 Urine Color Dark yellow (Yellow) 07/09/23 10:44 Urine Appearance Clear (CLEAR) 07/09/23 10:44 Urine pH 5 (5-7) 07/09/23 10:44 Ur Specific [place] 1.025 (1.005-1.030) 07/09/23 10:44 Urine Protein Neg (Negative) 07/09/23 10:44 Urine Glucose (UA) Norm (Normal) 07/09/23 10:44 Urine Ketones Negative (Negative) 07/09/23 10:44 Urine Blood Neg (Negative) 07/09/23 10:44 Urine Nitrate Negative (Negative) 07/09/23 10:44 Urine Bilirubin 1+ (Negative) H 07/09/23 10:44 Urine Urobilinogen 1 mg/dL (Negative) H 07/09/23 10:44 Ur Leukocyte Esterase Negative (Negative) 07/09/23 10:44 All radiology interpretation(s) finalized by discharge Discharge Plan Discharge Patient Disposition: Admitted As Inpatient Admit Provider: Rodriguez Drake Clinical Impression: Pulmonary embolism, Lung mass, Metastatic cancer, Pneumonia, Respiratory failure Condition: Stable Coding Level of Care Code ED Crop Adjuster for Jaya Lockhart
[2023-07-09 10:27] LABS: Basophils # 0.1 10^3/uL (0.0-0.1); Basophils % 0.7 %; Eosinophils % 0.1 %; Hematocrit 51.9 % (37-53); Lymphocytes # 1.9 10^3/uL (0.8-4.8); Lymphocytes % 13.4 %; Mean Corpuscular HGB Conc 30.8 g/dL (30-55); Mean Corpuscular Hemoglobin 26.3 pg (27-33); Mean Corpuscular Volume 85.4 fl (82-101); Mean Platelet Volume 10.4 fL (7.4-10.4); Monocytes # 1.2 10^3/uL (0.2-0.9); Monocytes % 8.3 %; Neutrophils # 10.67 10^3/uL (1.8-7.7); Neutrophils % 75.4 %; Nucleated Red Blood Cells % 0 %; Platelet Count 398 10^3/cmm (157-399); Red Blood Count 6.08 10^6/uL (3.85-5.65); Red Cell Distribution Width 21.2 % (12.1-15.1); White Blood Count 14.15 10^3/uL (3.29-11.43)
[2023-07-09 11:19] LABS: Add Urine Microscopic? NO; Charge for UA Resulting for Rev
[2023-07-09 11:22] LABS: Bilirubin Urine 1+ (Negative); Blood Urine Neg (Negative); Glucose Urine UA Norm (Normal); Ketones Urine Negative (Negative); Leukocyte Esterase Urine Negative (Negative); Nitrate Urine Negative (Negative); Protein Urine Neg (Negative); Specific Gravity, Urine 1.025 (1.005-1.030); Urine Appearance Clear (CLEAR); Urine Color Dark Yellow (Yellow); Urobilinogen Urine 1 mg/dL (Negative); pH Urine 5 (5-7)
--- NOTE | 2023-07-09 11:26 | ECG_ITS ---
[facility] Test Date: 2023-07-09 Pat Name: Zhang Escamilla Department: Room: Gender: Male [employer] Lead: : 1960 Requested By: Bridger Andrew Order Number: [id number] Sonali MD: Jun Ahmadi M.D. Measurements Intervals [place] Rate: 84 P: 0 MT: 0 QRS: 101 QRSD: 126 T: 72 QT: 395 QTc: 468 Interpretive Statements ATRIAL FIBRILLATION RIGHT AXIS DEVIATION [QRS AXIS > 100] MODERATE INTRAVENTRICULAR CONDUCTION DELAY [110+ ms QRS DURATION] No previous ECG available for comparison Electronically Signed On 07-09-2023 15:54:30 CDT by Jun Ahmadi M.D. [email or web address]
[2023-07-09 11:37] LABS: Alanine Aminotransferase 9 U/L (0-41); Albumin Level 2.2 g/dL (3.5-5.2); Alkaline Phosphatase 180 U/L (40-130); Blood Urea Nitrogen 38 mg/dL (8-23); Calcium 7.6 mg/dL (8.5-10.5); Carbon Dioxide 23 mmol/L (22-29); Chloride 93 mmol/L (98-107); Creatinine Clr Calc Pharmacy 41.8943; Globulin 3.7 g/dL (1.3-4.6); Glomerular Filtration Rate 43.7 mL/min (90-130); Glucose 94 mg/dL (65-115); Osmolality Calculated 275 mOsm/kg (285-295); Sodium 128 mmol/L (136-145); Total Bilirubin 0.9 mg/dL (0.15-1.2); Total Protein 5.9 g/dL (6.6-8.7)
[2023-07-09 11:40] LABS: Anion Gap 18.4 (5-19); Aspartate Amino Transferase 14 U/L (0-40); Potassium 6.4 mmol/L (3.5-5.1); Troponin(5th) Baseline 41 ng/L (0-15)
--- NOTE | 2023-07-09 11:42 | CT_ITS ---
WS: [id number] CTA CHEST FOLLOWED BY ABDOMEN AND PELVIS TECHNIQUE: Contrast enhanced CTA of the chest, followed by abdomen, and pelvis with coronal and sagit nury reformatted images and additional MIP Images. CLINICAL INFORMATION: Tachypnea, hypoxia, abdominal pain, lung CA with mets COMPARISON: No prior imaging DLP: 860.[address] scans at [facility] use at least one of these dose optimization techniques: automated e xposure control; mA and/or kV adjustment per patient size (includes targeted exams where dose is matc hed to clinical indication); or iterative reconstruction. FINDINGS: Proximal main pulmonary arteries are normal. Filling defects in the LEFT inferior segment upper lobe pulmonary arteries compatible with pulmonary embolus. This involves the segmental and subsegmental pu lmonary arteries. Diffuse poor filling of the LEFT lower lobe segmental and subsegmental pulmonary ar teries extending from proximal to distal patible with diffuse LEFT lower lobe pulmonary embolus. No significant RIGHT heart strain. Advanced chronic emphysematous changes with air trapping. Consolid ation RIGHT lower lobe. Area of necrosis in the RIGHT lower lobe may be due to neoplasm measuring 6.3 x 4.5 cm Diffuse groundglass infiltrates inferior segment LEFT upper lobe and LEFT lower lobe with interstiti al thickening. Bronchovascular thickening along the LEFT hilum. Normal caliber thoracic aorta. RIGHT infrahilar soft tissue mass or lymphadenopathy measuring 3.6 x 2.2 cm. Few additional LEFT lower lobe nodule suspicious for metastasis. A few small subcentimeter RIGHT upper lobe RIGHT middle lobe nodul es. No axillary lymphadenopathy. Hypertrophic changes thoracic spine. Sclerotic metastasis involving the L2 vertebral body. Diffuse fatty infiltration of the liver. Numerous small hepatic metastasis. Portal vein and splenic v ein appear patent. Markedly atrophic pancreas. Fluid-filled gallbladder. No evidence of cholelithiasi s. Surgical clips in the RIGHT retroperitoneum. Fluid distended stomach with air-fluid levels. RIGHT nephrectomy. LEFT adrenal gland is normal. Duplicated LEFT renal collecting system with renal c ysts. No hydronephrosis. Suspicious enhancing LEFT renal lesion measuring 1.7 x 2.3 cm likely renal c ell carcinoma. Normal caliber abdominal aorta. Celiac and SMA are patent. Small-moderate free fluid in the pelvis. P ostoperative changes RIGHT proximal femur. Osteopenia. Cystic changes in the LEFT femoral head and ne ck. Markedly tortuous sigmoid colon. Diffuse patulous distention of the RIGHT colon and transverse co jackelyn extending to the point splenic flexure with constipation and fecal retention. This is likely due to adynamic ileus. No focal transition point in the colon. Findings could be followed up with colonos copy to exclude sigmoid stricture. Tiny fat-containing LEFT inguinal hernia. Fecalization of the small bowel in the pelvis. Large destru ctive metastasis LEFT iliac wing with a soft tissue component. Para-aortic and retroperitoneal lympha denopathy. Filling defect suspicious for thrombus involving the inferior vena cava. CT/CT angio chest w abd pel w con IMPRESSION: 1. Acute pulmonary embolus described above. No evidence of RIGHT heart strain. Poor perfusion to the majority of the LEFT lower lobe 2. RIGHT lower lobe consolidation compatible with pneumonia. In addition there is a heterogeneously enhancing necrotic component that may present neoplasm 3. Groundglass infiltrates with intralobular septal thickening inferior segmen t LEFT upper lobe and LEFT lower lobe may be due to pneumonia, lymphangitic met astasis, versus ischemia. 4. RIGHT infrahilar mass or lymphadenopathy measuring 2.2 x 3.6 cm. 5. A few LEFT lower lobe nodules likely metastatic. A few additional subcentim eter nodules in the RIGHT upper lobe. 6. Sclerotic metastasis L2 vertebral body. 7. Enhancing solid LEFT renal lesion measuring 2.3 x 1 6.7 cm is compatible wi th renal cell carcinoma. No hydronephrosis in the LEFT kidney. 8. Prior RIGHT nephrectomy. 9. Patulous distention with constipation involving the RIGHT colon and transve rse colon extending to the splenic flexure. Findings likely due to adynamic ile us. Markedly tortuous sigmoid colon. Findings can be followed up with colonosco py to exclude obstructing stricture. Sigmoid colon is decompressed. 10. Numerous small hepatic metastasis. 11. Small amount of free fluid in the pelvis. 12. Distended stomach with air-fluid level. 13. Large destructive metastasis involving the LEFT iliac wing with a soft tis ruby component. This measures approximately 3.6 x 2.6 cm. 14. Para-aortic retroperitoneal lymphadenopathy. 15. Filling defect suspicious for tumor thrombus or bland thrombus involving the inferior vena cava at the level of the kidneys. Intrahepatic IVC appears pa tent. 16. Recommend lower extremity venous ultrasound for DVT Notified Bridger Sotelo DO at 07/09/2023 1:33 PM.
[2023-07-09] MEDS: albuterol 2.5 mg/3 mL Neb 10 MG INHALATION (11:56)
[2023-07-09] MEDS: calcium chloride 10% Syr 10 mL 1 GM IVP (12:00)
[2023-07-09 12:11] LABS: Creatine Phosphokinase 28 U/L (39-308); Lipase 5 U/L (13-60)
[2023-07-09 12:12] LABS: ABG PCO2 51.5 mmHg (35-45); ABG PH Result 7.31 (7.35-7.45); Alveolar-Arterial Oxygen Gradi 13.6 mmHg (5-10); Arterial Blood Gas Hematocrit 46.6 % (42-52); Base Excess ABG -1.5 mmol/L (-2.0-2.0); Blood Gas Operator Identificat AMH; Blood Gas Sample Site Brachial, left; Blood Gas Sample Type Arterial; Carboxyhemoglobin 1.4 %THgb (0.4-20.1); HCO3 ABG 25.6 mmol/L (22-26); HGB O2 Sat 94.5 % (95-100); Methemoglobin 0.2 % (0.4-1.5); Oxygen Device NC; Oxygen Saturation ABG 96.1; PO2 ABG 89.9 mmHg (80.0-100.0); PO2 FiO2 Ratio Arterial Blood 0; Potassium Level - ABG 5.9 mmol/L (3.5-5.0); Total Hemoglobin 15.2 g/dL (14-18)
[2023-07-09] MEDS: dextrose 10% 1,000 ML 30 ML IV (12:13)
[2023-07-09] MEDS: insulin regular-human 100 units/1 mL 10 UNIT IVP (12:14)
[2023-07-09] MEDS: sodium chloride 0.9% 1,905.09 ML 1905.08999999999992 ML IV (12:30)
[2023-07-09] MEDS: iohexol 350 mg/mL 500 mL Btl (per mL) IV (12:36)
[2023-07-09 13:09] LABS: Glucose Point of Care 117 mg/dL (70-110)
--- NOTE | 2023-07-09 13:36 | USR_ITS ---
PROCEDURE INFORMATION: Exam: US Duplex Lower Extremity Veins, Bilateral Exam date and time: 07/09/2023 4:36 PM Age: 63 years old Clinical indication: Condition or disease; Embolism or thrombosis; Lower extremity, bilateral; Additional info: Pes, thrombus ivc TECHNIQUE: Imaging protocol: Real-time duplex ultrasound of the bilateral extremities with 2-D tompkins scale, color Doppler flow and spectral waveform analysis including responses to compression and other maneuvers (when performed) with image documentation. Complete exam focused on the lower extremity veins. COMPARISON: CT angio chest w abd pel w con 07/09/2023 12:32 PM FINDINGS: Deep veins: Partial thrombus in the right distal femoral vein. Remaining deep veins appear grossly patent. Normal Doppler waveforms and compressibility. Superficial veins: Partial thrombus within the bilateral great saphenous veins [id number]. Remainder of the superficial veins are grossly patent without thrombus. Normal Doppler waveforms and compressibility. US/CV venous duplex [facility] [id number] IMPRESSION: Partial thrombus within the RIGHT mid/distal femoral vein. Partial thrombus within the superficial bilateral great saphenous veins below the knee.
--- NOTE | 2023-07-09 13:53 | P.HP_ITS ---
Providers/Chief Complaint 2 Admitting Physician: Rodriguez Drake MD Chief Complaint: sob History of Present Illness FYI, there are 2 charts present in the system for the same patient. For other past medical history and surgical history please refer to the other chart by the name of Andi Holcomb is a 63 year old male with past medical history of renal cell carcinoma, single kidney, right-sided nephrectomy 7 years ago, left renal cell carcinoma currently for last 2-1/2 months on oral chemotherapy, atrial fibrillation presented to the ER because of ongoing difficulty in breathing for last 4 weeks along with cough for which he was told that he had a pneumonia. Patient is not aware if he was given an antibiotic. He started having pain on the left side of his chest so he presented to the ER today. Pain has been ongoing and is stabbing in nature for last 2 days. In the ER he was found to have a white count of 14,000, ABG showing pCO2 51, hyponatremia, hyperkalemia, acute kidney injury. CTA was done which showed pulmonary embolism with pulmonary infarct, right-sided lower lobe pneumonia, T2 vertebrae L2 vertebrae metastasis, hilar mass, possible tumor thrombus or bland thrombus in inferior vena cava near left kidney and IVC Review of Systems 2 General: Reports: 10 or more systems reviewed and unremarkable except in HPI and below Const: Denies: fever(s), chills, body aches, change in appetite, change in weight, malaise, night sweats, diaphoresis, change in sleep pattern, daytime sleepiness or snoring Eyes: Denies: change in vision, blurry vision, photophobia, eye discomfort or eye discharge ENMT: Denies: throat pain, enlarged tonsils, hoarseness, mouth pain, oral sores, dry mouth, tinnitus, nasal congestion or post nasal drip Card: Denies: chest pain, palpitations, irregular heart rhythm, edema, swelling of feet/ankles, lightheadedness, syncope, pre-syncope, dyspnea on exertion, orthopnea, leg pain with exertion or acrocyanosis Resp: Denies: dyspnea, productive cough, non-productive cough, wheezing, stridor, pain on inspiration, change in phlegm color, hemoptysis or chest congestion GI: Denies: abdominal pain, nausea, vomiting, hematemesis, coffee ground emesis, dysphagia, heartburn, diarrhea, constipation, bloating, GI cramping, change in bowel habits, pain on defecation, hematochezia or melena : Denies: flank pain, difficulty urinating, dysuria, urinary frequency, urinary urgency, urinary hesitancy, urinary dribbling, difficulty starting urination, change in urine stream, nocturia or hematuria Musc: Denies: neck pain, back pain, extremity pain, joint pain, joint swelling, joint redness, joint stiffness or limited range of motion Neuro: Denies: headache(s), numbness in extremities, weakness in extremities, sensory changes, lack of coordination, difficulty walking, frequent falls, dizziness, vertigo, confusion, Slurred speech present, difficulty communicating thoughts or seizure-like activity Psych: Denies: anxiety, depression, mood swings, panic attacks, hopelessness or irritability Endo: Denies: polyuria, polydipsia, tired all the time, cold intolerance, excessive sweating, flushing or heat intolerance Guillermo/Lymph: Denies: easy bruising or easy bleeding All/Imm: Denies: tongue swelling, facial swelling or acute wheezing Medications/Allergies Home Medications Medication Instructions Recorded Confirmed Last Taken Type amiodarone 200 mg tablet 200 mg PO DAILY 07/09/23 07/09/23 07/09/23 History axitinib 5 mg tablet (Inlyta) 5 mg PO BID 07/09/23 07/09/23 07/09/23 History diltiazem HCl 180 mg 180 mg PO DAILY 07/09/23 07/09/23 07/09/23 History capsule,extended release 24 hr, controlled (DILT-XR) furosemide 40 mg tablet 40 mg PO DAILY 07/09/23 07/09/23 Unknown History lactulose 10 gram/15 mL oral 30 ml PO TID 07/09/23 07/09/23 Unknown History solution metoprolol tartrate 100 mg tablet 100 mg PO BID 07/09/23 07/09/23 07/09/23 History morphine 15 mg tablet,extended 15 mg PO BID 07/09/23 07/09/23 07/09/23 History release nystatin 100,000 unit/mL oral See Rx Instructions .Route .COMPLEX 07/09/23 07/09/23 Unknown History suspension oxycodone-acetaminophen 7.5 mg-325 1 tab PO QID PRN Pain 07/09/23 07/09/23 Unknown History mg tablet pantoprazole 40 mg tablet,delayed 40 mg PO BID 07/09/23 07/09/23 07/09/23 History release spironolactone 25 mg tablet 25 mg PO DAILY 07/09/23 07/09/23 07/09/23 History Allergies Allergy/AdvReac Type Severity Reaction Status Date / Time No Known Allergies Allergy Verified 07/09/23 14:45 PFSH Acute 2 PFSH: Medical History (Updated 07/09/23 @ 13:58 by Rodriguez Drake MD) Metastatic cancer Solitary left kidney Renal cell carcinoma Surgical History (Updated 07/09/23 @ 13:58 by Rodriguez Drake MD) History of nephrectomy Vitals/I&O/Wt Last Vital Signs Temp 98.1 F 07/09/23 09:13 Pulse 100 07/09/23 13:34 Resp 20 H 07/09/23 12:16 BP 100/68 07/09/23 13:34 Pulse Ox 91 07/09/23 13:34 O2 Del Method BiPAP 07/09/23 13:34 O2 Flow Rate 4 07/09/23 12:18 FiO2 40 07/09/23 12:45 Weight last 48 hrs Weight 63.503 kg Physical Exam 2 Narrative: General: AOx3, in acute distress because of pain in chest, chronically sick appearing HEENT: PERRLA, pupils bilaterally equal and reactive Chest: Bronchial breath sounds all over lung mas with coarse crackles present more so in the right lower zone, decreased air entry in left lower zone, rhonchi all over lung mas CVS: S1-S2 irregularly irregular, tachycardia, no gallops, no rubs Abdomen: Soft, nontender, no organomegaly, bowel sounds present Neuro: No focal deficits, no facial deformity, AO x3, power 5/5 in all limbs Quick SOFA Score: Respiratory Rate: 20 Blood Pressure: 108/82 [place] Coma Scale: 15 qSOFA Score: 0 If qSOFA score 2 or greater, continue: PaO2/FiO2 Ratio (mmHg): 0 Blood Pressure Mean: 90 Bilirubin (mg/dl): 0.9 Platelets (x10?/ml): 398 C reatinine (mg/dl): 1.6 SOFA Score: 5 Evaluation: Current stage of sepsis: sepsis Sepsis stage criteria used: CMS Sep-1 and Sepsis-3 Crystalloid fluids: 30 mL/kg crystalloid fluids ordered and initiated within 3 hours Blood cultures ordered: Yes Possible source: pulmonary Focused Exam: Vital signs: Temp Pulse Resp BP Pulse Ox O2 Del Method O2 Flow Rate 07/09/23 13:34 100 100/68 91 BiPAP 07/09/23 12:45 95 07/09/23 12:18 110 H 106/57 95 Nasal Cannula 4 07/09/23 12:16 105 H 20 H 94 Nasal Cannula 4 07/09/23 11:57 100 20 H 94 Nasal Cannula 4 07/09/23 11:18 93 21 H 85/68 91 Nasal Cannula 4 07/09/23 09:48 77 90/72 90 Nasal Cannula 3 07/09/23 09:13 98.1 F 70 26 H 90/72 92 Nasal Cannula 3 FiO2 07/09/23 13:34 07/09/23 12:45 40 07/09/23 12:18 07/09/23 12:16 07/09/23 11:57 07/09/23 11:18 07/09/23 09:48 07/09/23 09:13 Respiratory exam: Yes crackles, rales, wheezes and diminished lung sounds (Left lower zone) Date exam was performed: 07/09/23 Time exam was performed: 17:38 2 Sepsis Screen No Definite Risk 07/09/23 13:34 Respiratory Rate 20 breaths/min H (12 - 18) 07/09/23 16:00 Blood Pressure 108/82 mmHg 07/09/23 16:00 [place] Coma Scale Score 15 07/09/23 15:53 Quick SOFA Score 1 07/09/23 17:33 SOFA Score: 2 ABG PO2/FiO2 Ratio 0 07/09/23 12:01 [place] Coma Scale Score 15 07/09/23 15:53 Blood Pressure Mean 90 mmHg 07/09/23 16:00 Total Bilirubin 0.9 mg/dL (0.15-1.2) 07/09/23 11:00 Platelet Count 398 10^3/cmm (157-399) 07/09/23 10:20 Creatinine 1.6 mg/dL (0.7-1.2) H 07/09/23 11:00 SOFA Score 3 07/09/23 17:33 Data 07/09/23 10:20 07/09/23 11:00 Other Labs: Radiology Impressions Chest X-Ray 07/09/23 09:18 IMPRESSION: 1. Bibasal infiltrates with associated atelectasis. 2. Several scattered ill-defined nodular densities are identified in both lungs. Nonemergent contrast CT scan of the chest would be indicated for follow-up. Chest/Abdomen/Pelvis CT 07/09/23 11:42 IMPRESSION: 1. Acute pulmonary embolus described above. No evidence of RIGHT heart strain. Poor perfusion to the majority of the LEFT lower lobe 2. RIGHT lower lobe consolidation compatible with pneumonia. In addition there is a heterogeneously enhancing necrotic component that may present neoplasm 3. Groundglass infiltrates with intralobular septal thickening inferior segment LEFT upper lobe and LEFT lower lobe may be due to pneumonia, lymphangitic metastasis, versus ischemia. 4. RIGHT infrahilar mass or lymphadenopathy measuring 2.2 x 3.6 cm. 5. A few LEFT lower lobe nodules likely metastatic. A few additional subcentimeter nodules in the RIGHT upper lobe. 6. Sclerotic metastasis L2 vertebral body. 7. Enhancing solid LEFT renal lesion measuring 2.3 x 1 6.7 cm is compatible with renal cell carcinoma. No hydronephrosis in the LEFT kidney. 8. Prior RIGHT nephrectomy. 9. Patulous distention with constipation involving the RIGHT colon and transverse colon extending to the splenic flexure. Findings likely due to adynamic ileus. Markedly tortuous sigmoid colon. Findings can be followed up with colonoscopy to exclude obstructing stricture. Sigmoid colon is decompressed. 10. Numerous small hepatic metastasis. 11. Small amount of free fluid in the pelvis. 12. Distended stomach with air-fluid level. 13. Large destructive metastasis involving the LEFT iliac wing with a soft tissue component. This measures approximately 3.6 x 2.6 cm. 14. Para-aortic retroperitoneal lymphadenopathy. 15. Filling defect suspicious for tumor thrombus or bland thrombus involving the inferior vena cava at the level of the kidneys. Intrahepatic IVC appears patent. 16. Recommend lower extremity venous ultrasound for DVT Notified Bridger Sotelo DO at 07/09/2023 1:33 PM. Laboratory Results WBC 14.15 10^3/uL (3.29-11.43) H 07/09/23 10:20 RBC 6.08 10^6/uL (3.85-5.65) H 07/09/23 10:20 Hgb 16.00 g/dL (11.27-16.99) 07/09/23 10:20 Hct 51.9 % (37-53) 07/09/23 10:20 MCV 85.4 fl (82-101) 07/09/23 10:20 MCH 26.3 pg (27-33) L 07/09/23 10:20 MCHC 30.8 g/dL (30-55) 07/09/23 10:20 RDW 21.2 % (12.1-15.1) H 07/09/23 10:20 Plt Count 398 10^3/cmm (157-399) 07/09/23 10:20 MPV 10.4 fL (7.4-10.4) 07/09/23 10:20 Neut % (Auto) 75.4 % 07/09/23 10:20 Lymph % (Auto) 13.4 % 07/09/23 10:20 [place] % (Auto) 8.3 % 07/09/23 10:20 Eos % (Auto) 0.1 % 07/09/23 10:20 Baso % (Auto) 0.7 % 07/09/23 10:20 Neut # (Auto) 10.67 10^3/uL (1.8-7.7) H 07/09/23 10:20 Lymph # (Auto) 1.9 10^3/uL (0.8-4.8) 07/09/23 10:20 [place] # (Auto) 1.2 10^3/uL (0.2-0.9) H 07/09/23 10:20 Eos # (Auto) 0.0 10^3/uL (0.0-0.8) 07/09/23 10:20 Baso # (Auto) 0.1 10^3/uL (0.0-0.1) 07/09/23 10:20 Nucleated RBC % (auto) 0 % 07/09/23 10:20 Nucleated RBCs # 0.0 /100WBC 07/09/23 10:20 Specimen Type Arterial 07/09/23 12:01 Sample Site Brachial, left 07/09/23 12:01 ABG pH 7.31 (7.35-7.45) L 07/09/23 12:01 ABG pCO2 51.5 mmHg (35-45) H 07/09/23 12:01 ABG pO2 89.9 mmHg (80.0-100.0) 07/09/23 12:01 ABG PO2/FiO2 Ratio 0 07/09/23 12:01 ABG HCO3 25.6 mmol/L (22-26) 07/09/23 12:01 ABG O2 Saturation 96.1 07/09/23 12:01 ABG Base Excess -1.5 mmol/L (-2.0-2.0) 07/09/23 12:01 Duy Test N/a 07/09/23 12:01 A-a O2 Gradient 13.6 mmHg (5-10) H 07/09/23 12:01 Hematocrit 46.6 % (42-52) 07/09/23 12:01 Hgb O2 Saturation 94.5 % (95-100) L 07/09/23 12:01 Carboxyhemoglobin 1.4 %THgb (0.4-20.1) 07/09/23 12:01 Methemoglobin 0.2 % (0.4-1.5) L 07/09/23 12:01 Total Hemoglobin 15.2 g/dL (14-18) 07/09/23 12:01 Sodium 127.0 mmol/L (131-143) L 07/09/23 12:01 Potassium 5.9 mmol/L (3.5-5.0) H 07/09/23 12:01 Glucose 91.0 mg/dL (70-115) 07/09/23 12:01 Ionized Calcium Not Reportable 07/09/23 12:01 O2 Delivery Device Nc 07/09/23 12:01 O2 Liters/Min 4.0 % 07/09/23 12:01 FiO2 36.0 % 07/09/23 12:01 Lawn Care Worker ID Amh 07/09/23 12:01 Sodium 128 mmol/L (136-145) L 07/09/23 11:00 Potassium 6.4 mmol/L (3.5-5.1) H 07/09/23 11:00 Chloride 93 mmol/L (98-107) L 07/09/23 11:00 Carbon Dioxide 23 mmol/L (22-29) 07/09/23 11:00 Anion Gap 18.4 (5-19) 07/09/23 11:00 BUN 38 mg/dL (8-23) H 07/09/23 11:00 Creatinine 1.6 mg/dL (0.7-1.2) H 07/09/23 11:00 GFR Calculation 43.7 mL/min (90-130) L 07/09/23 11:00 Glucose 94 mg/dL (65-115) 07/09/23 11:00 POC Glucose 117 mg/dL (70-110) H 07/09/23 12:55 Calculated Osmolality 275 mOsm/kg (285-295) L 07/09/23 11:00 Lactic Acid 3.9 mmol/L (0.5-2.2) H 07/09/23 13:30 Calcium 7.6 mg/dL (8.5-10.5) L 07/09/23 11:00 Total Bilirubin 0.9 mg/dL (0.15-1.2) 07/09/23 11:00 AST 14 U/L (0-40) 07/09/23 11:00 ALT 9 U/L (0-41) 07/09/23 11:00 Alkaline Phosphatase 180 U/L (40-130) H 07/09/23 11:00 Creatine Kinase 28 U/L (39-308) L 07/09/23 11:00 Troponin T Baseline 41 ng/L (0-15) H 07/09/23 11:00 Total Protein 5.9 g/dL (6.6-8.7) L 07/09/23 11:00 Albumin 2.2 g/dL (3.5-5.2) L 07/09/23 11:00 Globulin 3.7 g/dL (1.3-4.6) 07/09/23 11:00 Lipase 5 U/L (13-60) L 07/09/23 11:00 Urine Color Dark yellow (Yellow) 07/09/23 10:44 Urine Appearance Clear (CLEAR) 07/09/23 10:44 Urine pH 5 (5-7) 07/09/23 10:44 Ur Specific [place] 1.025 (1.005-1.030) 07/09/23 10:44 Urine Protein Neg (Negative) 07/09/23 10:44 Urine Glucose (UA) Norm (Normal) 07/09/23 10:44 Urine Ketones Negative (Negative) 07/09/23 10:44 Urine Blood Neg (Negative) 07/09/23 10:44 Urine Nitrate Negative (Negative) 07/09/23 10:44 Urine Bilirubin 1+ (Negative) H 07/09/23 10:44 Urine Urobilinogen 1 mg/dL (Negative) H 07/09/23 10:44 Ur Leukocyte Esterase Negative (Negative) 07/09/23 10:44 Micro: Microbiology 07/09/23 13:30 Blood Culture - Preliminary Blood SPECIMEN COLLECTED 07/09/23 13:00 Blood Culture - Preliminary Blood SPECIMEN COLLECTED A&P Assessment and plan (1) Respiratory failure: Most likely in setting of right-sided lower lobe pneumonia along with left pulmonary embolism with infarction. Oxygen supplementation keeping saturation over 90%. Pulmonary toilet with I-S and flutter valve. Ipratropium, Xopenex every 6 hours, Pulmicort twice daily. (2) Pulmonary embolism with infarction: Appreciate CTA done today. Concern for left lower lobe pulmonary embolism with infarction. Echocardiogram to rule out right-sided heart strain. Start on heparin drip. High risk for hemoptysis. Will continue to monitor. (3) Pneumonia: Check sputum culture, urine Legionella, bacterial antigen, MRSA swab. Check respiratory viral panel. Patient is immunocompromised as being on oral chemotherapy. Start on IV vancomycin and IV Zosyn. If MRSA swab is negative will discontinue vancomycin. Oral azithromycin for atypical coverage. Empirically start patient on IV steroids with Solu-Medrol 40 mg every 6-hour. 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 Concern for tumor in infrahepatic IVC near the renal level. Check lower limb Dopplers. If shows to have extensive DVT will have to consult cardiology for possible IVC filter placement. Heparin drip as above otherwise. Patient will need to be discharged on oral anticoagulations. (5) Acute kidney injury: High risk of FELICIANO in setting of single kidney with renal cell carcinoma currently. Baseline creatinine normal. Currently 1.6. Associated with hyponatremia and hyperkalemia. Most likely in setting of tumor burden along with sepsis in setting of pneumonia. Normal saline at 75 cc/h. Repeat BMP in evening. Patient received treatment for hyperkalemia in the ER. Medical reconciliation done for nephrotoxic drugs. Hold off on home dose of Lasix for now. Obstructive nephropathy ruled out on CT. (6) Hyperkalemia: (7) Hyponatremia: (8) Renal cell carcinoma: Follows up with oncology as an outpatient. Takes oral chemotherapy. Found to have L2 vertebrae metastasis along with a right hilar mass. Continue with home pain medications including morphine 15 mg twice daily, oxycodone 1 tablet 4 times daily. Add fentanyl patch for pain secondary to pulmonary infarct. (9) Metastatic cancer: (10) Solitary left kidney: Plan Atrial fibrillation: Continue with home dose of metoprolol. Switch Cardizem to 60 mg every 6 hourly. Continue with home dose of amiodarone. Patient is not on anticoagulation at home. Will need to get anticoagulation now given thromboembolism. CODE STATUS: Discussed in detail with the patient. He would want to remain full code. Cardiac diet Protonix OPD prophylaxis Heparin drip will be sufficient for DVT prophylaxis Patient is at high risk for decompensation. Attestations 2 Medical Necessity Statement*: Admission for more than 2 midnights for management of respiratory failure in setting of pneumonia, pulmonary embolism with infarction, IVC thrombus with left renal cell carcinoma, solitary kidney, FELICIANO Critical Care Time: The high probability of a clinically significant, sudden or life threatening deterioration of the patient's [nephrology, cardiology, pulmonary, hematology] s ystem(s) required my full and direct attention, intervention and personal management. The critical care time is as shown. This time is in addition to time spent performing any reported procedures but includes the following: [x] Data and vital sign review and interpretation [x] Patient assessment, examination and intervention [x] Documentation [x] Medication orders and management Critical Care Time (min): 60 Coding Level of Care Code Critical Care >/= 30 minutes Critical care time (in minutes): 60 The high probability of a clinically significant, sudden or life threatening deterioration, as referenced in this documentation, required my full and direct attention, intervention and personal management. The critical care time shown is in addition to time spent performing any reported separately billable procedures and includes the following: [x] Data and vital sign review and interpretation [x ] Patient assessment, examination and intervention [x] Medication orders and management [x] Patient/Family updates as able [x] Care Coordination and Documentation. 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
[2023-07-09 13:55] LABS: Lactic Sepsis W/Reflex 3.9 mmol/L (0.5-2.2)
--- NOTE | 2023-07-09 13:57 | USCV_ITS ---
Zhang Escamilla Age: 63 Gender: M : 1960 Exam Date: 07/09/2023 14:49 Ordering Phys: Rodriguez Drake MD Technologist: Exam Location: [facility] [place]: chest pain pe BP: 105 / 79 HR: 166 Rhythm: Sinus Technical Quality: Adequate MEASUREMENTS (Male / Female) Normal Values 2D ECHO LV Diastolic Diameter PLAX 4.4 cm 4.2 - 5.9 / 3.9 - 5.3 cm IVS Diastolic Thickness 1.1 cm 0.6 - 1.0 / 0.6 - 0.9 cm IVS Systolic Thickness 1.9 cm LVPW Diastolic Thickness 1.5 cm 0.6 - 1.0 / 0.6 - 0.9 cm LVPW Systolic Thickness 1.8 cm LVOT Diameter 2.3 cm LV Ejection Fraction 2D Teich 39.2 % LV Ejection Fraction MOD 2C 53.2 % LV Ejection Fraction 2C AL 54.6 % LA Diameter 3.0 cm RA Systolic Volume 4C AL 53.0 ml RA Systolic Volume 4C MOD 51.8 ml LA Sys Volume AL 64.2 cm cubed LA Sys Volume Index AL 35.2 cm cubed/m squared Aorta at Sinotubular Diameter 3.0 cm IVC Diameter 2.6 cm M-MODE LA Ao Ratio MM 1.0 AV Cusp Separation MM 2.5 cm DOPPLER AV Peak Velocity 93.0 cm/s LVOT Peak Velocity 62.0 cm/s AV Area Cont Eq vti 4.6 cm squared AV Area Cont Eq pk 2.7 cm squared MV Peak Velocity 64.0 cm/s MV Area PHT 4.5 cm squared Mitral E to A Ratio 1.3 TR Peak Velocity 136.0 cm/s TR Peak Gradient 7.4 mmHg TV Peak E Velocity 104.0 cm/s Right Atrial Pressure 3.0 mmHg Pulmonary Artery Systolic Pressu 10.4 mmHg PV Peak Velocity 95.0 cm/s FINDINGS Left Ventricle Left ventricle is normal in size. LV systolic function is mildly reduced with EF of 45-50%. Mild global hypokinesis, Right Ventricle Normal in size and function Right Atrium Normal in size Left Atrium Normal in size Mitral Valve Structurally normal mitral valve. Mild mitral regurgitation. Aortic Valve Aortic valve is thickened. No significant stenosis or regurgitation. Tricuspid Valve Insufficient TR jet to evaluate RVSP. Pulmonic Valve Not well-visualized. Pericardium Normal Aorta Normal in size IVC Appears to be dilated CONCLUSIONS LV systolic function is mildly reduced with EF of 45 to 50%. Mild mitral regurgitation. IVC appears to be dilated. No comparison studies are available Jamal Garcia MD (Electronically Signed) Final Date: 10 Jul 2023 08:07 S
--- NOTE | 2023-07-09 13:57 | PC.NURSE ---
Arrived in ICU from Med surg after Dr. Drake changed orders to ICU, no report called
--- NOTE | 2023-07-09 14:21 | P.CONIM_ITS ---
Providers/Reason For Consult 2 Consulting Physician/Specialty*: Alton Busch MD FCCP/pulmonary critical care Reason for Consult*: Patient with metastatic renal cell cancer-presenting with segmental pulmonary embolism Requesting Physician: Ashleihg ALBA Attending Physician: Rodriguez Drake MD History of Present Illness History of Present Illness Zhang Escamilla is a 63 year old male with past medical history of metastatic renal cell carcinoma presents to the emergency room with difficulty breathing for past 4 weeks along with worsening cough and left-sided chest pain. Patient was admitted for constipation and was treated also for right lower lobe pneumonia with IV ceftriaxone and azithromycin in May 2023 While in the ER, CTA showed pulmonary embolism with pulmonary infarct, thrombus in IVC near left kidney, right-sided lower lobe pneumonia, spinal metastasis, hilar mass Other significant labs white count 14,000, ABG with pCO2 51, hyponatremia, hypokalemia, FELICIANO. Pulmonary consult requested for pulmonary embolism and patient with underlying metastatic renal cell cancer. Patient seen at bedside in ICU Complaining of left lower chest pain on deep inspiration He is currently on 5 L supplemental oxygen-tells me that 2 L disease baseline He had right-sided nephrectomy 7 years ago and was told there was no cancer at that time But February 2023-he was diagnosed with renal cell carcinoma of left kidney and is taking oral chemotherapy twice a day for over 2 months. Review of Systems 2 General: Reports: 10 or more systems reviewed and unremarkable except in HPI and below Medications/Allergies Home Medications Medication Instructions Recorded Confirmed Last Taken Type morphine 15 mg tablet,extended 15 mg PO Q12H 04/21/23 06/02/23 06/02/23 History release oxycodone-acetaminophen 5 mg-325 1 tab PO Q6H PRN break through pain 04/21/23 06/02/23 06/02/23 History mg tablet pantoprazole 40 mg tablet,delayed 40 mg PO BID 04/21/23 06/02/23 06/01/23 History release axitinib 5 mg tablet 5 mg PO BID #60 tabs 04/27/23 06/02/23 06/01/23 Rx naloxone 4 mg/actuation nasal See Rx Instructions .Route .COMPLEX 05/07/23 06/02/23 Unknown History spray (Narcan) dexamethasone 4 mg tablet 4 mg PO Q12H #30 tabs 05/11/23 06/02/23 06/01/23 Rx diltiazem HCl 180 mg 180 mg PO Q24H #30 caps 05/11/23 06/02/23 06/01/23 Rx capsule,extended release 24 hr, controlled (DILT-XR) furosemide 40 mg tablet (Lasix) 40 mg PO DAILY #30 tabs 05/11/23 06/02/23 06/01/23 Rx amiodarone 200 mg tablet 200 mg PO DAILY 06/02/23 06/02/23 06/01/23 History lactulose 10 gram/15 mL oral See Rx Instructions .Route .COMPLEX 06/02/23 06/02/23 Unknown History solution levofloxacin 500 mg tablet 500 mg PO DAILY 06/02/23 06/02/23 06/01/23 History amiodarone 200 mg tablet (Pacerone) 400 mg (2 x 200 mg) PO DAILY #120 06/08/23 Unknown Rx tabs apixaban 5 mg tablet (Eliquis) 5 mg PO BID #60 tabs 06/08/23 06/02/23 06/01/23 Rx metoprolol tartrate 100 mg tablet 100 mg PO BID #60 tabs 06/08/23 Unknown Rx sodium chloride 1,000 mg soluble 1,000 mg PO BID #6 tabs 06/08/23 Unknown Rx tablet amiodarone 200 mg tablet 200 mg PO DAILY 07/09/23 07/09/23 07/09/23 History axitinib 5 mg tablet (Inlyta) 5 mg PO BID 07/09/23 07/09/23 07/09/23 History diltiazem HCl 180 mg 180 mg PO DAILY 07/09/23 07/09/23 07/09/23 History capsule,extended release 24 hr, controlled (DILT-XR) furosemide 40 mg tablet 40 mg PO DAILY 07/09/23 07/09/23 Unknown History lactulose 10 gram/15 mL oral 30 ml PO TID 07/09/23 07/09/23 Unknown History solution metoprolol tartrate 100 mg tablet 100 mg PO BID 07/09/23 07/09/23 07/09/23 History morphine 15 mg tablet,extended 15 mg PO BID 07/09/23 07/09/23 07/09/23 History release nystatin 100,000 unit/mL oral See Rx Instructions .Route .COMPLEX 07/09/23 07/09/23 Unknown History suspension oxycodone-acetaminophen 7.5 mg-325 1 tab PO QID PRN Pain 07/09/23 07/09/23 Unknown History mg tablet pantoprazole 40 mg tablet,delayed 40 mg PO BID 07/09/23 07/09/23 07/09/23 History release spironolactone 25 mg tablet 25 mg PO DAILY 07/09/23 07/09/23 07/09/23 History Allergies Allergy/AdvReac Type Severity Reaction Status Date / Time No Known Allergies Allergy Unverified 07/09/23 14:45 Current Medications Generic Name Dose Route Start Last Admin Trade Name Freq PRN Reason Stop Dose Admin Dextrose 1,000 mls @ 30 mls/hr 07/09/23 11:45 07/09/23 12:13 D10w IV 30 mls/hr .Q24H VIANNEY Administration PFSH Acute 2 PFSH: Medical History Hyponatremia Bradycardia Elevated lactic acid level Hyperkalemia Constipation, acute Metastatic cancer Solitary left kidney Renal cell carcinoma Immunocompromised due to corticosteroids Protein calorie malnutrition Physical deconditioning Acute exacerbation of CHF (congestive heart failure) Systolic CHF, acute Metastatic renal cell carcinoma Prostate cancer screening Bladder wall thickening Lung nodule < 6cm on CT 2.5cm right lower lobe H/O drug abuse Smoker 1PPD Renal cell carcinoma Surgical History History of nephrectomy H/O right nephrectomy Family History Mother Stomach cancer Father Bone cancer Social History Smoking and tobacco/nicotine status: current every day tobacco/nicotine user Alcohol intake: current Alcohol intake frequency: 0-2 Drinks per Day Substance/Drug Use: never Vitals/I&O/Wt Last Vital Signs Temp 98.1 F 07/09/23 09:13 Pulse 100 07/09/23 13:34 Resp 20 H 07/09/23 12:16 BP 100/68 07/09/23 13:34 Pulse Ox 91 07/09/23 13:34 O2 Del Method BiPAP 07/09/23 13:34 O2 Flow Rate 4 07/09/23 12:18 FiO2 40 07/09/23 12:45 Weight last 48 hrs Weight 140 lb Physical Exam 2 Narrative: General: alert, NAD HEENT: conj clear, EOMI, PERRL, mmm, Neck: supple, no meningismus Heme: no cervical LAP Respiratory: Inspection: No visible deformity of the chest wall Palpation: Trachea is mildly deviated to the right, bilateral symmetric expansion Percussion: Bilateral tympanic percussion note both anterior and posteriorly Auscultation: Reduced breath sounds right lower lung levels Cardiovascular: rrr, nl s1s2, no mrg Abdomen: soft, nt, nd, no r/g, bs+ Extremities: pulses +, no edema, no c/c : no CVA tenderness Skin: intact, no rash MSK: no back or neck pain Neurologic: grossly intact Data 07/10/23 03:29 07/10/23 03:29 Micro: Microbiology 07/09/23 13:30 Blood Culture - Preliminary Blood SPECIMEN COLLECTED 07/09/23 13:00 Blood Culture - Preliminary Blood SPECIMEN COLLECTED A&P Assessment and plan (1) Pulmonary embolism with infarction: CT evidence of acute pulmonary embolism and left lung vasculature; there is suspicious tumor thrombus or bland thrombus involving inferior vena cava at the level of kidneys. There is no right heart strain. Echocardiogram showed reduced EF 45 to 50% with mild global hypokinesis. Currently requiring 5 L supplemental oxygen; baseline 2 L This could be microthrombi from metastatic renal cell cancer; however patient is on oral chemotherapy Agree with heparin GTT for 24 hours and switch to Lovenox Monitor saturations and oxygen requirement (2) Metastatic renal cell carcinoma: Currently on oral ljwxmguibxfu-bxyuxi-gq with oncology (3) Postobstructive pneumonia: Right lower lobe consolidation compatible with pneumonia-in addition there is heterogeneously enhancing necrotic component present underlying neoplasm There are groundglass infiltrates with interlobular septal thickening inferior segment left upper lobe and lower lobe represents pneumonia/lymphangitic metastasis/ischemia Continue IV antibiotics vancomycin and Zosyn and monitor clinically Blood cultures pending; patient unable to expectorate for sputum cultures Continue scheduled nebulizations with ipratropium, Xopenex, Pulmicort Consult Attestations 2 Medical Necessity Statement: Currently on heparin GTT for next 24 to 48 hours Time Spent in Patient Care: Greater than 35 minutes (>than 50% of time spent in counselling and/or direct pt care on unit) . Critical Care Time: This patient has a high probability of clinically significant, sudden or life threatening deterioration of the patient's (pulmonary, cardiac) systems required my full, direct attention, the highest level of physician preparedness for urgent intervention and personal management. I managed/supervised life or organ supporting interventions that required frequent physician assessment. I devoted my full attention in the ICU to the direct care of this patient for the period of time indicated above. Time I spent with family or surrogate(s) is included only if the patient was incapable of providing necessary information or participating in decision making. This time includes the following services provided: Telemetry review Mechanical Ventilation Hemodynamic interpretation, assessment and management Review and interpretation of CXR Review and interpretation of lab values Review and interpretation of microbiologic data and culture results Review of medications and administration Review and interpretation of Nutrition requirements and management Discussion of management with other consultants and services Clinical update to family members [x] Data and vital sign review and interpretation [x] Patient assessment, examination and intervention [x] Documentation [x] Medication orders and management Time spent for teaching as well as performing procedures are billed separately and is not included in this note Coding Level of Care Code Acute Code for Chg Fwd Diagnoses Pulmonary embolism with infarction I26.99 Metastatic renal cell carcinoma C64.9 Postobstructive pneumonia J18.9 Time Spent (min) 61
[2023-07-09] MEDS: ipratropium-albuterol 3 mL Neb INHALATION (14:25)
[2023-07-09] MEDS: vancomycin 1,000 MG in sodium chloride 0.9% 250 ML 250 MG IV (14:46)
[2023-07-09] MEDS: lactulose oral liq 20 gm/30 mL UDC PO ×2 (14:47→21:28)
[2023-07-09] MEDS: sodium chloride 0.9% 1,000 ML 50 ML IV (14:58)
[2023-07-09 14:59] LABS: Procalcitonin 1.85 ng/mL (0-0.5); Thyroid Stimulating Hormone 15.09 uIU/mL (0.27-4.20)
[2023-07-09 15:10] LABS: Iron 18 ug/dL (59-158)
[2023-07-09 15:16] LABS: Vitamin B12 > 2000 pg/mL (232-1245)
[2023-07-09 15:23] LABS: Reflex Lactate Order REFLEX LACTIC ORDERD
[2023-07-09] MEDS: heparin drip 25,000 UNIT/500 ML PREMIX 19 UNIT IV (15:39)
--- NOTE | 2023-07-09 15:50 | ECG_ITS ---
[facility] Test Date: 2023-07-09 Pat Name: Zhang Escamilla Department: Room: [facility] Gender: Male Calenderer: : 1960 Requested By: Bridger Andrew Order Number: [id number] Sonali MD: Jun Ahmadi M.D. Measurements Intervals [place] Rate: 91 P: 0 PA: 0 QRS: 54 QRSD: 122 T: 85 QT: 384 QTc: 473 Interpretive Statements ATRIAL FIBRILLATION MODERATE INTRAVENTRICULAR CONDUCTION DELAY [110+ ms QRS DURATION] ABNORMAL RHYTHM ECG No previous ECG available for comparison Electronically Signed On 07-09-2023 15:55:40 CDT by Jun Ahmadi M.D. [email or web address]
[2023-07-09 16:49] LABS: Percent Saturation 13.2 % (20-50); Total Iron Binding Capacity 136 mcg/dl; Unsaturated Iron Binding 118 ug/dL (112-347)
[2023-07-09] MEDS: dilTIAZem 60 mg Tablet PO ×2 (17:10→21:38)
[2023-07-09] MEDS: fentaNYL 50 mcg Patch 1 PATCH TRANSDERMA (17:10)
[2023-07-09] MEDS: morphine ER (12 HR) 15 mg Tablet PO (17:10)
[2023-07-09] MEDS: piperacillin-tazobactam 3.375 GM in sodium chloride 0.9% (plus) 50 ML IV (17:11)
[2023-07-09] MEDS: metoprolol tartrate 50 mg Tablet 100 MG PO (17:11)
[2023-07-09] MEDS: pantoprazole DR 40 mg Tablet PO (17:11)
[2023-07-09] MEDS: azithromycin 250 mg Tablet 500 MG PO (18:50)
[2023-07-09] MEDS: methylPREDNISolone sod succ 40 mg/mL INJ IVP (18:50)
[2023-07-09 18:58] LABS: Lactic Acid level (Lactate) 3.9 mmol/L (0.5-2.2)
[2023-07-09 19:00] LABS: Troponin 5 6HR 34.91 ng/L (0-15)
[2023-07-09 19:01] LABS: Troponin 5 6HR Delta -6.09 ng/L (0-12)
[2023-07-09] MEDS: acetylcysteine 200 mg/mL MDV 10 mL 100 MG INHALATION (19:45)
[2023-07-09] MEDS: budesonide 0.5 mg/2 mL Neb INHALATION (19:46)
[2023-07-09] MEDS: ipratropium 0.5 mg/2.5 mL Neb INHALATION (19:47)
[2023-07-09] MEDS: levalbuterol 0.63 mg/3 mL Neb 0.630000000000000004 MG INHALATION (19:47)
[2023-07-09 20:10] LABS: Blood Urea Nitrogen 35 mg/dL (8-23); Calcium 7.7 mg/dL (8.5-10.5); Carbon Dioxide 18 mmol/L (22-29); Chloride 95 mmol/L (98-107); Creatinine Clr Calc Pharmacy 55.2453; Glomerular Filtration Rate 55.6 mL/min (90-130); Glucose 50 mg/dL (65-115); Osmolality Calculated 277 mOsm/kg (285-295); Sodium 131 mmol/L (136-145)
[2023-07-09 20:12] LABS: Anion Gap 23.9 (5-19); Potassium 5.9 mmol/L (3.5-5.1)
[2023-07-09 22:01] LABS: Adenovirus Not Detected (NOT DETECT); Chlamydia Pneumoniae Not Detected (NOT DETECT); Coronavirus 229E,HKU1,NL63,OC4 Not Detected (NOT DETECT); Human Metapneumovirus Not Detected (NOT DETECT); Human Rhinovirus/Enterovirus Not Detected (NOT DETECT); Influenza A Not Detected (NOT DETECT); Influenza A H1 Not Detected (NOT DETECT); Influenza A H1-2009 Not Detected (NOT DETECT); Influenza A H3 Not Detected (NOT DETECT); Influenza B Not Detected (NOT DETECT); Mycoplasma Pneumoniae Not Detected (NOT DETECT); Parainfluenza Virus Type 1 Not Detected (NOT DETECT); Parainfluenza Virus Type 2 Not Detected (NOT DETECT); Parainfluenza Virus Type 3 Not Detected (NOT DETECT); Parainfluenza Virus Type 4 Not Detected (NOT DETECT); Respiratory Syncytial Virus A Not Detected (NOT DETECT); Respiratory Syncytial Virus B Not Detected (NOT DETECT); SARS-COV-2 Not Detected (NOT DETECT)
[2023-07-09 23:30] LABS: Free T4 Free Thyroxine 0.17 ng/dL (0.82-1.77); T3 Free 0.4 PG/ML (2.0-4.4)
[2023-07-10] VITALS (52 sets, daily range): BP systolic 81–129; BP diastolic 52–100; PULSE 65–118; RESP 7–26; TEMP 36.1–36.6; O2SAT 83–100; BMI 19.3
[2023-07-10] MEDS: methylPREDNISolone sod succ 40 mg/mL INJ IVP ×4 (00:02→16:55)
[2023-07-10] MEDS: piperacillin-tazobactam 3.375 GM in sodium chloride 0.9% (plus) 50 ML IV ×3 (00:02→16:55)
[2023-07-10 00:21] LABS: Cortisol Random 30.81 ug/dL (2.47-19.5)
[2023-07-10] MEDS: acetylcysteine 200 mg/mL MDV 10 mL 100 MG INHALATION ×2 (01:46→07:47)
[2023-07-10] MEDS: ipratropium 0.5 mg/2.5 mL Neb INHALATION ×4 (01:46→21:18)
[2023-07-10] MEDS: levalbuterol 0.63 mg/3 mL Neb 0.630000000000000004 MG INHALATION ×3 (01:46→14:07)
[2023-07-10 03:50] LABS: Basophils # 0.1 10^3/uL (0.0-0.1); Basophils % 0.6 %; Hematocrit 46.7 % (37-53); Lymphocytes # 1.1 10^3/uL (0.8-4.8); Mean Corpuscular Hemoglobin 26.4 pg (27-33); Mean Corpuscular Volume 84.9 fl (82-101); Mean Platelet Volume 9.9 fL (7.4-10.4); Monocytes # 0.4 10^3/uL (0.2-0.9); Monocytes % 4.2 %; Neutrophils # 8.85 10^3/uL (1.8-7.7); Nucleated Red Blood Cells % 0 %; Platelet Count 483 10^3/cmm (157-399); Red Cell Distribution Width 20.9 % (12.1-15.1); White Blood Count 10.53 10^3/uL (3.29-11.43)
[2023-07-10 04:06] LABS: Estmated Average Glucose 146; Hemoglobin A1C 6.7 % (4.0-6.0)
[2023-07-10 04:08] LABS: Partial Thromboplastin Time 41.3 SECONDS (23.9-36.7)
[2023-07-10 04:14] LABS: Alanine Aminotransferase 9 U/L (0-41); Albumin Level 2.4 g/dL (3.5-5.2); Alkaline Phosphatase 187 U/L (40-130); Anion Gap 17.3 (5-19); Aspartate Amino Transferase 12 U/L (0-40); Blood Urea Nitrogen 31 mg/dL (8-23); Carbon Dioxide 24 mmol/L (22-29); Chloride 97 mmol/L (98-107); Creatinine Clr Calc Pharmacy 65.2899; Globulin 3.6 g/dL (1.3-4.6); Glomerular Filtration Rate 67.4 mL/min (90-130); Glucose 115 mg/dL (65-115); Magnesium 1.7 mg/dL (1.7-2.3); Osmolality Calculated 281 mOsm/kg (285-295); Phosphorus 4.5 mg/dL (2.5-4.5); Potassium 6.3 mmol/L (3.5-5.1); Sodium 132 mmol/L (136-145); Total Bilirubin 1.1 mg/dL (0.15-1.2)
[2023-07-10 04:16] LABS: Cholesterol 156 mg/dL (0-200); HDL Cholesterol 26 mg/dL (60-100); LDL Cholesterol Calculated 95 mg/dL (50-129); LDL HDL Ratio 3.65 RATIO (0.00-3.22); Triglycerides 176 mg/dL (0-150)
[2023-07-10 04:28] LABS: Folate Level 10.9 ng/mL (4.5-32.2)
[2023-07-10] MEDS: dilTIAZem 60 mg Tablet PO ×4 (05:03→21:23)
[2023-07-10] MEDS: budesonide 0.5 mg/2 mL Neb INHALATION ×2 (07:47→21:18)
[2023-07-10] MEDS: sodium chloride 0.9% 1,000 ML 50 ML IV (08:45)
[2023-07-10] MEDS: amiodarone 200 mg Tablet PO (08:47)
[2023-07-10] MEDS: azithromycin 250 mg Tablet 500 MG PO (08:47)
[2023-07-10] MEDS: pantoprazole DR 40 mg Tablet PO ×2 (08:48→17:12)
[2023-07-10] MEDS: lactulose oral liq 20 gm/30 mL UDC PO ×3 (08:48→21:24)
[2023-07-10] MEDS: morphine ER (12 HR) 15 mg Tablet PO ×2 (08:48→17:12)
[2023-07-10] MEDS: metoprolol tartrate 50 mg Tablet 100 MG PO (08:55)
[2023-07-10 10:46] LABS: Partial Thromboplastin Time 37.4 SECONDS (23.9-36.7)
[2023-07-10] MEDS: insulin regular-human 10 UNIT in SYRINGE 1 EACH IVP (12:19)
[2023-07-10] MEDS: calcium chloride 10% Syr 10 mL 1 GM IVP (12:19)
[2023-07-10] MEDS: fentaNYL 25 mcg Patch 1 PATCH TRANSDERMA (12:20)
[2023-07-10] MEDS: sodium polystyrene sulfonate 15 gm/60 mL Btl PO (12:20)
[2023-07-10] MEDS: dextrose 10% 125 ML 750 ML IV (12:25)
[2023-07-10 12:45] LABS: Creatine Phosphokinase 17 U/L (39-308); Phosphorus 4.3 mg/dL (2.5-4.5); Uric Acid 6.1 mg/dL (3.4-7.0)
[2023-07-10] MEDS: iron sucrose 200 MG in sodium chloride 0.9% (100 ml) 100 ML 220 MG IV (13:45)
--- NOTE | 2023-07-10 14:32 | P.PN_ITS ---
Subjective 2 Subjective: No overnight events Patient sitting at bedside Reported doing incentive spirometry today -Reported his breathing as well as chest pain has been better -Labs revealed hypokalemia 6.3-EKG did n ot show peaked T waves-he received calcium chloride, insulin glucose -Lower extremity Doppler showed partial thrombus within the right mid/distal femoral vein and within the superficial bilateral great saphenous veins below the knee -Patient continues to be on heparin Medications: Reviewed: Yes Vitals/I&O/Wt Last Vital Signs Temp 96.9 F L 07/10/23 09:20 Pulse 73 07/10/23 14:08 Resp 24 H 07/10/23 14:08 BP 93/64 07/10/23 12:30 Pulse Ox 98 07/10/23 14:08 O2 Del Method Nasal Cannula 07/10/23 14:08 O2 Flow Rate 4 07/10/23 14:08 FiO2 40 07/09/23 12:45 07/09/23 07/10/23 07/10/23 22:59 06:59 14:59 Intake Total 264.317 / 264.317 494.467 / 030.514 7728.750 / 1353.750 Output Total 600 / 600 500 / 1100 Balance -335.683 / -335.683 -5.533 / -855.264 6083.750 / 1353.750 Weight last 48 hrs Weight 154 lb Weight 154 lb 3 oz Weight 150 lb Weight 140 lb Physical Exam 2 Narrative: General: alert, NAD HEENT: conj clear, EOMI, PERRL, mmm, Neck: supple, no meningismus Heme: no cervical LAP Respiratory: Inspection: No visible deformity of the chest wall Palpation: Trachea is mildly deviated to the right, bilateral symmetric expansion Percussion: Bilateral tympanic percussion note both anterior and posteriorly Auscultation: Reduced breath sounds right lower lung zone Cardiovascular: rrr, nl s1s2, no mrg Abdomen: soft, nt, nd, no r/g, bs+ Extremities: pulses +, no edema, no c/c : no CVA tenderness Skin: intact, no rash MSK: no back or neck pain Neurologic: grossly intact Data 07/10/23 03:29 07/10/23 03:29 Other Labs: Radiology Impressions Chest X-Ray 07/09/23 09:18 IMPRESSION: 1. Bibasal infiltrates with associated atelectasis. 2. Several scattered ill-defined nodular densities are identified in both lungs. Nonemergent contrast CT scan of the chest would be indicated for follow-up. Chest/Abdomen/Pelvis CT 07/09/23 11:42 IMPRESSION: 1. Acute pulmonary embolus described above. No evidence of RIGHT heart strain. Poor perfusion to the majority of the LEFT lower lobe 2. RIGHT lower lobe consolidation compatible with pneumonia. In addition there is a heterogeneously enhancing necrotic component that may present neoplasm 3. Groundglass infiltrates with intralobular septal thickening inferior segment LEFT upper lobe and LEFT lower lobe may be due to pneumonia, lymphangitic metastasis, versus ischemia. 4. RIGHT infrahilar mass or lymphadenopathy measuring 2.2 x 3.6 cm. 5. A few LEFT lower lobe nodules likely metastatic. A few additional subcentimeter nodules in the RIGHT upper lobe. 6. Sclerotic metastasis L2 vertebral body. 7. Enhancing solid LEFT renal lesion measuring 2.3 x 1 6.7 cm is compatible with renal cell carcinoma. No hydronephrosis in the LEFT kidney. 8. Prior RIGHT nephrectomy. 9. Patulous distention with constipation involving the RIGHT colon and transverse colon extending to the splenic flexure. Findings likely due to adynamic ileus. Markedly tortuous sigmoid colon. Findings can be followed up with colonoscopy to exclude obstructing stricture. Sigmoid colon is decompressed. 10. Numerous small hepatic metastasis. 11. Small amount of free fluid in the pelvis. 12. Distended stomach with air-fluid level. 13. Large destructive metastasis involving the LEFT iliac wing with a soft tissue component. This measures approximately 3.6 x 2.6 cm. 14. Para-aortic retroperitoneal lymphadenopathy. 15. Filling defect suspicious for tumor thrombus or bland thrombus involving the inferior vena cava at the level of the kidneys. Intrahepatic IVC appears patent. 16. Recommend lower extremity venous ultrasound for DVT Notified Bridger Sotelo DO at 07/09/2023 1:33 PM. Venous Duplex 07/09/23 13:36 IMPRESSION: Partial thrombus within the RIGHT mid/distal femoral vein. Partial thrombus within the superficial bilateral great saphenous veins below the knee. Laboratory Results WBC 10.53 10^3/uL (3.29-11.43) 07/10/23 03:29 RBC 5.50 10^6/uL (3.85-5.65) 07/10/23 03:29 Hgb 14.50 g/dL (11.27-16.99) 07/10/23 03: Hct 46.7 % (37-53) 07/10/23 03: MCV 84.9 fl (82-101) 07/10/23 03:29 MCH 26.4 pg (27-33) L 07/10/23 03: MCHC 31.0 g/dL (30-55) 07/10/23 03: RDW 20.9 % (12.1-15.1) H 07/10/23 03:29 Plt Count 483 10^3/cmm (157-399) H 07/10/23 03:29 MPV 9.9 fL (7.4-10.4) 07/10/23 03: Neut % (Auto) 84.0 % 07/10/23 03: Lymph % (Auto) 10.0 % 07/10/23 03: [place] % (Auto) 4.2 % 07/10/23 03: Eos % (Auto) 0.0 % 07/10/23 03:29 Baso % (Auto) 0.6 % 07/10/23 03:29 Neut # (Auto) 8.85 10^3/uL (1.8-7.7) H 07/10/23 03: Lymph # (Auto) 1.1 10^3/uL (0.8-4.8) 07/10/23 03: [place] # (Auto) 0.4 10^3/uL (0.2-0.9) 07/10/23 03: Eos # (Auto) 0.0 10^3/uL (0.0-0.8) 07/10/23 03: Baso # (Auto) 0.1 10^3/uL (0.0-0.1) 07/10/23 03: Nucleated RBC % (auto) 0 % 07/10/23 03: Nucleated RBCs # 0.0 /100WBC 07/10/23 03:29 APTT 37.4 SECONDS (23.9-36.7) H 07/10/23 10:22 Specimen Type Arterial 07/09/23 12:01 Sample Site Brachial, left 07/09/23 12:01 ABG pH 7.31 (7.35-7.45) L 07/09/23 12:01 ABG pCO2 51.5 mmHg (35-45) H 07/09/23 12:01 ABG pO2 89.9 mmHg (80.0-100.0) 07/09/23 12:01 ABG PO2/FiO2 Ratio 0 07/09/23 12:01 ABG HCO3 25.6 mmol/L (22-26) 07/09/23 12:01 ABG O2 Saturation 96.1 07/09/23 12:01 ABG Base Excess -1.5 mmol/L (-2.0-2.0) 07/09/23 12:01 Duy Test N/a 07/09/23 12:01 A-a O2 Gradient 13.6 mmHg (5-10) H 07/09/23 12:01 Hematocrit 46.6 % (42-52) 07/09/23 12:01 Hgb O2 Saturation 94.5 % (95-100) L 07/09/23 12:01 Carboxyhemoglobin 1.4 %THgb (0.4-20.1) 07/09/23 12:01 Methemoglobin 0.2 % (0.4-1.5) L 07/09/23 12:01 Total Hemoglobin 15.2 g/dL (14-18) 07/09/23 12:01 Sodium 127.0 mmol/L (131-143) L 07/09/23 12:01 Potassium 5.9 mmol/L (3.5-5.0) H 07/09/23 12:01 Glucose 91.0 mg/dL (70-115) 07/09/23 12:01 Ionized Calcium Not Reportable 07/09/23 12:01 O2 Delivery Device Nc 07/09/23 12:01 O2 Liters/Min 4.0 % 07/09/23 12:01 FiO2 36.0 % 07/09/23 12:01 Wet Washer Machine ID Amh 07/09/23 12:01 Sodium 132 mmol/L (136-145) L 07/10/23 03:29 Potassium 6.3 mmol/L (3.5-5.1) H 07/10/23 03:29 Chloride 97 mmol/L (98-107) L 07/10/23 03:29 Carbon Dioxide 24 mmol/L (22-29) 07/10/23 03:29 Anion Gap 17.3 (5-19) 07/10/23 03:29 BUN 31 mg/dL (8-23) H 07/10/23 03:29 Creatinine 1.1 mg/dL (0.7-1.2) 07/10/23 03:29 GFR Calculation 67.4 mL/min (90-130) L 07/10/23 03:29 Glucose 115 mg/dL (65-115) 07/10/23 03:29 POC Glucose 117 mg/dL (70-110) H 07/09/23 12:55 Estimat Average Glucose 146 07/10/23 03:29 Hemoglobin A1c 6.7 % (4.0-6.0) H 07/10/23 03:29 Calculated Osmolality 281 mOsm/kg (285-295) L 07/10/23 03:29 Lactic Acid 3.9 mmol/L (0.5-2.2) H 07/09/23 13:30 Lactic Acid (Sepsis) 3.9 mmol/L (0.5-2.2) H 07/09/23 17:30 Uric Acid 6.1 mg/dL (3.4-7.0) 07/10/23 03:29 Calcium 8.0 mg/dL (8.5-10.5) L 07/10/23 03:29 Phosphorus 4.3 mg/dL (2.5-4.5) 07/10/23 03:29 Phosphorus 4.5 mg/dL (2.5-4.5) 07/10/23 03:29 Magnesium 1.7 mg/dL (1.7-2.3) 07/10/23 03:29 Iron 18 ug/dL (59-158) L 07/09/23 11:00 TIBC 136 mcg/dl 07/09/23 11:00 % Saturation 13.2 % (20-50) L 07/09/23 11:00 Unsat Iron Binding 118 ug/dL (112-347) 07/09/23 11:00 Total Bilirubin 1.1 mg/dL (0.15-1.2) 07/10/23 03:29 AST 12 U/L (0-40) 07/10/23 03:29 ALT 9 U/L (0-41) 07/10/23 03:29 Alkaline Phosphatase 187 U/L (40-130) H 07/10/23 03:29 Creatine Kinase 17 U/L (39-308) L 07/10/23 03:29 Troponin T Baseline 41 ng/L (0-15) H 07/09/23 11:00 Troponin T 120 Minute Cancelled 07/09/23 20:43 Delta Troponin T Cancelled 07/09/23 20:43 Troponin T Hi Sens 6Hr 34.91 ng/L (0-15) H 07/09/23 17:30 Troponin T Hi Sens 6Hr Delta -6.09 ng/L (0-12) L 07/09/23 17:30 Total Protein 6.0 g/dL (6.6-8.7) L 07/10/23 03:29 Albumin 2.4 g/dL (3.5-5.2) L 07/10/23 03:29 Globulin 3.6 g/dL (1.3-4.6) 07/10/23 03:29 Triglycerides 176 mg/dL (0-150) H 07/10/23 03:29 Cholesterol 156 mg/dL (0-200) 07/10/23 03:29 LDL Cholesterol, Calc 95 mg/dL (50-129) 07/10/23 03:29 HDL Cholesterol 26 mg/dL (60-100) L 07/10/23 03:29 LDL/HDL Ratio 3.65 RATIO (0.00-3.22) H 07/10/23 03:29 Cholesterol/HDL Ratio 6.00 mg/dL (1.0-5.00) H 07/10/23 03:29 Lipase 5 U/L (13-60) L 07/09/23 11:00 Vitamin B12 > 2000 pg/mL (232-1245) H 07/09/23 11:00 Folate 10.9 ng/mL (4.5-32.2) 07/10/23 03:29 Procalcitonin 1.85 ng/mL (0-0.5) H 07/09/23 11:00 TSH 15.09 uIU/mL (0.27-4.20) H 07/09/23 11:00 Free T4 0.17 ng/dL (0.82-1.77) L 07/09/23 17:30 Free T3 0.4 PG/ML (2.0-4.4) L 07/09/23 17:30 Random Cortisol 30.81 ug/dL (2.47-19.5) H 07/09/23 11:00 Urine Color Dark yellow (Yellow) 07/09/23 10:44 Urine Appearance Clear (CLEAR) 07/09/23 10:44 Urine pH 5 (5-7) 07/09/23 10:44 Ur Specific [place] 1.025 (1.005-1.030) 07/09/23 10:44 Urine Protein Neg (Negative) 07/09/23 10:44 Urine Glucose (UA) Norm (Normal) 07/09/23 10:44 Urine Ketones Negative (Negative) 07/09/23 10:44 Urine Blood Neg (Negative) 07/09/23 10:44 Urine Nitrate Negative (Negative) 07/09/23 10:44 Urine Bilirubin 1+ (Negative) H 07/09/23 10:44 Urine Urobilinogen 1 mg/dL (Negative) H 07/09/23 10:44 Ur Leukocyte Esterase Negative (Negative) 07/09/23 10:44 Adenovirus (PCR) Not detected (NOT DETECT) 07/09/23 16:00 C. pneumoniae DNA (PCR) Not detected (NOT DETECT) 07/09/23 16:00 Coronavirus 229E (PCR) Not detected (NOT DETECT) 07/09/23 16:00 Human Metapneumovir PCR Not detected (NOT DETECT) 07/09/23 16:00 Influenza A (H1) PCR Not detected (NOT DETECT) 07/09/23 16:00 Influ A (H1/09) PCR Not detected (NOT DETECT) 07/09/23 16:00 Influenza A (H3) PCR Not detected (NOT DETECT) 07/09/23 16:00 Influenza Type A (PCR) Not detected (NOT DETECT) 07/09/23 16:00 Influenza Type B (PCR) Not detected (NOT DETECT) 07/09/23 16:00 M. pneumoniae (PCR) Not detected (NOT DETECT) 07/09/23 16:00 Parainfluenza 1 (PCR) Not detected (NOT DETECT) 07/09/23 16:00 Parainfluenza 2 (PCR) Not detected (NOT DETECT) 07/09/23 16:00 Parainfluenza 3 (PCR) Not detected (NOT DETECT) 07/09/23 16:00 Parainfluenza 4 (PCR) Not detected (NOT DETECT) 07/09/23 16:00 RSV Type A (PCR) Not detected (NOT DETECT) 07/09/23 16:00 RSV Type B (PCR) Not detected (NOT DETECT) 07/09/23 16:00 Entero/Rhino (PCR) Not detected (NOT DETECT) 07/09/23 16:00 SARS-CoV-2 (PCR) Not detected (NOT DETECT) 07/09/23 16:00 Micro: Microbiology 07/09/23 13:30 Blood Culture - Preliminary Blood NEGATIVE TO DATE 07/09/23 13:00 Blood Culture - Preliminary Blood NEGATIVE TO DATE 07/09/23 10:44 Bacterial Antigens - Final Urine Kidney 07/09/23 10:44 Legionella Urinary Antigen - Final Unknown Source A&P Assessment and plan (1) Pulmonary embolism with infarction: CT evidence of acute pulmonary embolism and left lung vasculature; there is suspicious tumor thrombus or bland thrombus involving inferior vena cava at the level of kidneys. Bilateral venous Doppler-showed DVT There is no right heart strain. Echocardiogram showed reduced EF 45 to 50% with mild global hypokinesis. Currently requiring 5 L supplemental oxygen; baseline 2 L This could be microthrombi from metastatic renal cell cancer; however patient is on oral chemotherapy Currently on heparin GTT-agreed to switch to Lovenox Monitor saturations and oxygen requirement (2) Metastatic renal cell carcinoma: Currently on oral [id number]-[id number]-[id number] with oncology (3) Postobstructive pneumonia: Right lower lobe consolidation compatible with pneumonia-in addition there is heterogeneously enhancing necrotic component present underlying neoplasm There are groundglass infiltrates with interlobular septal thickening inferior segment left upper lobe and lower lobe represents pneumonia/lymphangitic metastasis/ischemia Continue IV antibiotics vancomycin and Zosyn and monitor clinically Blood cultures pending; patient unable to expectorate for sputum cultures Continue scheduled nebulizations with ipratropium, Xopenex, Pulmicort Attestations 2 Medical Necessity Statement*: Deferred to hospitalist Time Spent in Patient Care: Greater than 35 minutes (>than 50% of time spent in counselling and/or direct pt care on unit) . Critical Care Time: This patient has a high probability of clinically significant, sudden or life threatening deterioration of the patient's (pulmonary cardiac, renal) systems required my full, direct attention, the highest level of physician preparedness for urgent intervention and personal management. I managed/supervised life or organ supporting interventions that required frequent physician assessment. I devoted my full attention in the ICU to the direct care of this patient for the period of time indicated above. Time I spent with family or surrogate(s) is included only if the patient was incapable of providing necessary information or participating in decision making. This time includes the following services provided: Telemetry review Mechanical Ventilation Hemodynamic interpretation, assessment and management Review and interpretation of CXR Review and interpretation of lab values Review and interpretation of microbiologic data and culture results Review of medications and administration Review and interpretation of Nutrition requirements and management Discussion of management with other consultants and services Clinical update to family members [x] Data and vital sign review and interpretation [x] Patient assessment, examination and intervention [x] Documentation [x] Medication orders and management Time spent for teaching as well as performing procedures are billed separately and is not included in this note Critical Care Time (min): 57 Coding Level of Care Code Acute Code for Chg Fwd Diagnoses Pulmonary embolism with infarction I26.99 Metastatic renal cell carcinoma C64.9 Postobstructive pneumonia J18.9 Time Spent (min) 57
[2023-07-10] MEDS: heparin drip 25,000 UNIT/500 ML PREMIX 28 UNIT IV (15:06)
--- NOTE | 2023-07-10 15:24 | PC.NURSE ---
lost iv access x3, patient wanting to limit sticks as much as possible. Dr. Drake approved picc line order
--- NOTE | 2023-07-10 15:26 | P.PN_ITS ---
Subjective 2 Subjective: No acute events overnight. Today morning on examination patient seems a lot more comfortable. Denies any nausea vomiting, headache. He is awake. During examination sitting in the recliner. Able to have complete conversation. Not in acute distress today. Down to 4 L of oxygen supplementation. Medications: Reviewed: Yes Vitals/I&O/Wt Last Vital Signs Temp 96.9 F L 07/10/23 09:20 Pulse 73 07/10/23 14:08 Resp 24 H 07/10/23 14:08 BP 93/64 07/10/23 12:30 Pulse Ox 98 07/10/23 14:08 O2 Del Method Nasal Cannula 07/10/23 14:08 O2 Flow Rate 4 07/10/23 14:08 FiO2 40 07/09/23 12:45 07/10/23 07/10/23 07/10/23 06:59 14:59 22:59 Intake Total 494.467 / 846.981 8440.750 / 1353.750 Output Total 500 / 1100 Balance -5.533 / -048.483 4837.750 / 1353.750 Weight last 48 hrs Weight 69.853 kg Weight 69.938 kg Weight 68.039 kg Weight 63.503 kg Physical Exam 2 Narrative: General: AOx3, in acute distress because of pain in chest, chronically sick appearing HEENT: PERRLA, pupils bilaterally equal and reactive Chest: Bronchial breath sounds all over lung mas with coarse crackles present more so in the right lower zone, decreased air entry in left lower zone, rhonchi all over lung mas CVS: S1-S2 irregularly irregular, tachycardia, no gallops, no rubs Abdomen: Soft, nontender, no organomegaly, bowel sounds present Neuro: No focal deficits, no facial deformity, AO x3, power 5/5 in all limbs Resp: AUSCULTATION: crackles, rales, wheezes and diminished lung sounds (Left lower zone) Data 07/10/23 03:29 07/10/23 03:29 Micro: Microbiology 07/09/23 13:30 Blood Culture - Preliminary Blood NEGATIVE TO DATE 07/09/23 13:00 Blood Culture - Preliminary Blood NEGATIVE TO DATE 07/09/23 10:44 Bacterial Antigens - Final Urine Kidney 07/09/23 10:44 Legionella Urinary Antigen - Final Unknown Source A&P Assessment and plan (1) Respiratory failure: Most likely in setting of right-sided lower lobe pneumonia along with left pulmonary embolism with infarction. Oxygen supplementation keeping saturation over 90%. Pulmonary toilet with I-S and flutter valve. Ipratropium, Xopenex every 6 hours, Pulmicort twice daily, Mucomyst every 6 hours. Appreciate pulmonary recommendations. (2) Pulmonary embolism with infarction: Appreciate CTA done today. Concern for left lower lobe pulmonary embolism with infarction. Echocardiogram shows EF of 45 to 50% with mild MR, dilated IVC, normal RA and RV, global LV hypokinesia Continue with heparin drip. Plan to continue heparin drip for 24 more hours. Patient is already on home dose of Eliquis. Discussed in detail with patient's outpatient oncologist. Plan to transition over to full dose Lovenox 1 mg/kg body weight every 12 hourly going forward even at home. High risk for hemoptysis. Will continue to monitor. (3) Pneumonia: Urine Legionella, bacterial antigen negative. Blood cultures so far negative. MRSA swab pending, respiratory viral panel negative. Patient is immunocompromised as being on oral chemotherapy. Continue with IV vancomycin and IV Zosyn. If MRSA swab is negative will discontinue vancomycin. Oral azithromycin for atypical coverage. Wean Solu-Medrol to 40 mg Q8 hourly. 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 Concern for tumor in infrahepatic IVC near the renal level. Appreciate lower limb Doppler for DVT. For now we will continue with anticoagulation as above. Monitor hemoglobin daily. (5) Acute kidney injury: High risk of FELICIANO in setting of single kidney with renal cell carcinoma currently. Baseline creatinine normal. Creatinine improving to 1.1. Medical reconciliation done for nephrotoxic drugs. CT abdomen pelvis on admission negative for obstruction. Continue with normal saline at 75 cc/h. Continue Flaherty catheterization for strict input output charting. Associated with hyponatremia and hyperkalemia. Hyponatremia with slight improvement up to 1.2. Continue with fluids as above. Continues to have persistent hyperkalemia. Treat with D10 along with tenets of insulin along with calcium gluconate. Bicarb within normal limits. Kayexalate 15 mg one-time. Repeat BMP in afternoon. Check magnesium, phosphorus, uric acid. (6) Hyperkalemia: (7) Hyponatremia: (8) Renal cell carcinoma: Follows up with oncology as an outpatient. Takes oral chemotherapy. Found to have L2 vertebrae metastasis along with a right hilar mass. Discussed with outpatient oncologist. Hold off on any further oral chemotherapy. Plan to discharge on Lovenox shots. Patient will be seen by oncology team at the earliest on discharge. Continue with home pain medications including morphine 15 mg twice daily, oxycodone 1 tablet 4 times daily. Add fentanyl patch for pain secondary to pulmonary infarct. (9) Metastatic cancer: (10) Solitary left kidney: Plan Atrial fibrillation: Continue with home dose of metoprolol, amiodarone. Switch Cardizem to 60 mg every 6 hourly. After medical reconciliation it seems patient is on Eliquis on at home. Patient states he is compliant with medication. Will transition to full dose Lovenox on discharge given thrombosis while being on Eliquis. CODE STATUS: Discussed in detail with the patient. He would want to remain full code. Cardiac diet Protonix OPD prophylaxis Heparin drip will be sufficient for DVT prophylaxis Out of bed to chair. Physical therapy. Iron deficiency anemia: Start on IV iron supplementation. 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
--- NOTE | 2023-07-10 16:00 | PICC.NOTE ---
Triple lumen PICC placed to right basilic vein. Referred to vascular access nurse for PICC placement due to poor access and heparin drip. Risks and benefits discussed and informed consent obtained from patient. Right arm assessed with right basilic vein measuring 3.6 mm, straight, and apparent best choice for placement. Using sterile technique and MST, right basilic vein accessed x 1 stick. Mid-arm circumference measured 10 cm from right AC 23 cm. Trimmed cath 40 cm with 1 cm external length noted. CXR shows tip to appear to be in the distal SVC. Waiting on vRad to read. Line secured with stat-lock. Insertion site covered with Biopatch and TSM. Report given to bedside nurse, MEHDI Escobar.
--- NOTE | 2023-07-10 16:22 | XRR_ITS ---
PROCEDURE INFORMATION: Exam: XR Chest Exam date and time: 07/10/2023 4:06 PM Age: 63 years old Clinical indication: Device placement; Picc; Additional info: Picc line TECHNIQUE: Imaging protocol: Radiologic exam of the chest. Views: 1 view. COMPARISON: CR XR chest 1V portable [id number] 07/09/2023 9:25 AM FINDINGS: Tubes, catheters and devices: There is a peripherally inserted central catheter on the right with the tip appropriately positioned in the SVC near the cavoatrial junction. Lungs: Ground-glass and fine reticular opacity in the lung bases. Pleural spaces: No pneumothorax. Heart/Mediastinum: Cardiomediastinal contours are unremarkable. Bones/joints: Bones are unremarkable. XR/XR chest 1V portable [id number] IMPRESSION: 1. Satisfactory PICC line position. 2. Stable nonspecific opacity in the lower lungs.
[2023-07-10] MEDS: vancomycin 1,000 MG in sodium chloride 0.9% 250 ML 250 MG IV (16:53)
[2023-07-10 17:27] LABS: Partial Thromboplastin Time > 250.0 SECONDS (23.9-36.7)
[2023-07-10 17:47] LABS: Blood Urea Nitrogen 27 mg/dL (8-23); Calcium 6.8 mg/dL (8.5-10.5); Carbon Dioxide 21 mmol/L (22-29); Chloride 102 mmol/L (98-107); Creatinine Clr Calc Pharmacy 105.3339; Glomerular Filtration Rate 113.5 mL/min (90-130); Glucose 123 mg/dL (65-115); Osmolality Calculated 282 mOsm/kg (285-295); Sodium 133 mmol/L (136-145)
[2023-07-10 17:54] LABS: Anion Gap 15.3 (5-19); Potassium 5.3 mmol/L (3.5-5.1)
[2023-07-10 20:27] LABS: Partial Thromboplastin Time 104.7 SECONDS (23.9-36.7)
--- NOTE | 2023-07-10 21:59 | PC.NURSE ---
Doctor Leonard was notified that PTT came back at 104.7 after Heparin was paused during dayshift. He ordered for heparin drip to be restarted at 15 units/kg/hr.
[2023-07-11] VITALS (49 sets, daily range): BP systolic 74–151; BP diastolic 55–98; PULSE 73–100; RESP 7–27; TEMP 35.7–36.2; O2SAT 79–100; BMI 19.2; BMI 19.8
[2023-07-11] MEDS: piperacillin-tazobactam 3.375 GM in sodium chloride 0.9% (plus) 50 ML IV ×3 (00:46→16:37)
[2023-07-11] MEDS: methylPREDNISolone sod succ 40 mg/mL INJ IVP ×3 (00:46→21:00)
[2023-07-11] MEDS: levalbuterol 0.63 mg/3 mL Neb 0.630000000000000004 MG INHALATION ×4 (01:55→19:33)
[2023-07-11] MEDS: ipratropium 0.5 mg/2.5 mL Neb INHALATION ×4 (01:55→19:33)
[2023-07-11] MEDS: acetylcysteine 200 mg/mL MDV 10 mL 100 MG INHALATION ×4 (01:57→19:34)
[2023-07-11] MEDS: levothyroxine 88 mcg Tablet PO (05:33)
[2023-07-11 05:34] LABS: Basophils # 0.1 10^3/uL (0.0-0.1); Basophils % 0.5 %; Hematocrit 43.7 % (37-53); Lymphocytes % 16.9 %; Mean Corpuscular HGB Conc 30.7 g/dL (30-55); Mean Corpuscular Hemoglobin 26.4 pg (27-33); Mean Platelet Volume 10.8 fL (7.4-10.4); Monocytes # 1.4 10^3/uL (0.2-0.9); Neutrophils # 12.92 10^3/uL (1.8-7.7); Neutrophils % 71.8 %; Nucleated Red Blood Cells % 0 %; Platelet Count 518 10^3/cmm (157-399); Red Blood Count 5.08 10^6/uL (3.85-5.65); White Blood Count 17.97 10^3/uL (3.29-11.43)
[2023-07-11] MEDS: budesonide 0.5 mg/2 mL Neb INHALATION ×2 (07:45→19:33)
[2023-07-11 07:53] LABS: Glucose Point of Care 116 mg/dL (70-110)
[2023-07-11] MEDS: dilTIAZem 60 mg Tablet PO ×3 (08:06→20:59)
[2023-07-11] MEDS: lactulose oral liq 20 gm/30 mL UDC PO ×3 (08:07→20:59)
[2023-07-11 08:55] LABS: Alanine Aminotransferase 8 U/L (0-41); Albumin Level 1.9 g/dL (3.5-5.2); Alkaline Phosphatase 156 U/L (40-130); Anion Gap 16.2 (5-19); Aspartate Amino Transferase 9 U/L (0-40); Blood Urea Nitrogen 24 mg/dL (8-23); Calcium 7.6 mg/dL (8.5-10.5); Carbon Dioxide 22 mmol/L (22-29); Chloride 101 mmol/L (98-107); Creatinine Clr Calc Pharmacy 105.3339; Globulin 3.1 g/dL (1.3-4.6); Glomerular Filtration Rate 113.5 mL/min (90-130); Glucose 122 mg/dL (65-115); Magnesium 1.6 mg/dL (1.7-2.3); Osmolality Calculated 283 mOsm/kg (285-295); Phosphorus 3.6 mg/dL (2.5-4.5); Potassium 5.2 mmol/L (3.5-5.1); Sodium 134 mmol/L (136-145); Total Bilirubin 0.7 mg/dL (0.15-1.2)
[2023-07-11 09:01] LABS: Glucose Point of Care 215 mg/dL (70-110)
[2023-07-11 09:44] LABS: Partial Thromboplastin Time 187.1 SECONDS (23.9-36.7)
--- NOTE | 2023-07-11 10:05 | PC.NURSE ---
PTT is 187. NUrse alerted Dr sagastume and received order to stop heparin drip. BP is 77/61. Patient is awake and alert. Nurse alerted Dr sagastume, received orders to hold metoprolol, and do cheetah, Give 500mL bolus if fluid responsive.
[2023-07-11] MEDS: azithromycin 250 mg Tablet 500 MG PO (10:57)
[2023-07-11] MEDS: magnesium sulfate premix 1 GM/100 ML PIGGYBACK IV (10:58)
[2023-07-11] MEDS: morphine ER (12 HR) 15 mg Tablet PO ×2 (10:58→17:23)
[2023-07-11] MEDS: amiodarone 200 mg Tablet PO (10:58)
[2023-07-11] MEDS: pantoprazole DR 40 mg Tablet PO ×2 (10:58→17:23)
[2023-07-11] MEDS: midodrine 5 mg TABLET PO ×3 (10:58→20:59)
[2023-07-11] MEDS: albumin 25 G/100 ML BAG 60 G IV ×2 (10:59→18:06)
--- NOTE | 2023-07-11 11:21 | XRR_ITS ---
PROCEDURE INFORMATION: Exam: XR Chest Exam date and time: 07/11/2023 5:35 PM Age: 63 years old Clinical indication: Patient HX: Pneumonia; Cough TECHNIQUE: Imaging protocol: Radiologic exam of the chest. Views: 1 view. COMPARISON: CR XR chest 1V portable [id number] 07/10/2023 4:06 PM FINDINGS: Tubes, catheters and devices: Right upper extremity PICC terminates in the SVC. Lungs: Stable ground-glass and reticular opacification at the bilateral lung bases. Pleural spaces: Possible small bilateral pleural effusions. No pneumothorax. Heart/Mediastinum: Unremarkable. No cardiomegaly. Bones/joints: Unremarkable. XR/XR chest 1V portable [id number] IMPRESSION: Stable bibasilar opacification and possible small pleural effusions.
--- NOTE | 2023-07-11 11:40 | PC.NURSE ---
[facility] shows SVI change of 1.4%. No fluid responsive. Nurse alerted Dr sagastume and received order for albumin and midorine.
[2023-07-11 12:00] LABS: Methicillin-Resist S.aureu PCR NOT DETECTED (NOT DETECTED)
[2023-07-11] MEDS: enoxaparin 80 mg/0.8 mL Syringe 70 MG SUBCUT (12:58)
[2023-07-11] MEDS: iron sucrose 200 MG in sodium chloride 0.9% (100 ml) 100 ML 220 MG IV (12:58)
[2023-07-11] MEDS: sodium chloride 0.9% 1,000 ML 50 ML IV (12:59)
[2023-07-11 13:12] LABS: Glucose Point of Care 146 mg/dL (70-110)
--- NOTE | 2023-07-11 14:24 | P.PN_ITS ---
Subjective 2 Subjective: No acute events overnight. Today morning on examination patient seems a lot more comfortable. Denies any nausea vomiting, headache. He is awake. During examination sitting in the recliner. Able to have complete conversation. Not in acute distress today. Down to 4 L of oxygen supplementation. Medications: Reviewed: Yes Vitals/I&O/Wt Last Vital Signs Temp 96.3 F L 07/11/23 13:00 Pulse 78 07/11/23 13:30 Resp 17 07/11/23 13:30 BP 89/70 07/11/23 13:30 Pulse Ox 100 07/11/23 13:00 O2 Del Method Nasal Cannula 07/11/23 13:00 O2 Flow Rate 4 07/11/23 13:00 FiO2 40 07/09/23 12:45 07/10/23 07/11/23 07/11/23 22:59 06:59 14:59 Intake Total 867.2 / 2270.950 1535 / 3805.950 726.733 / 726.733 Output Total 850 / 850 480 / 1330 500 / 500 Balance 17.2 / 3126.465 1214 / 2475.950 226.733 / 226.733 Weight last 48 hrs Weight 69.853 kg Weight 69.853 kg Weight 69.938 kg Weight 68.039 kg Physical Exam 2 Narrative: General: AOx3, in acute distress because of pain in chest, chronically sick appearing HEENT: PERRLA, pupils bilaterally equal and reactive Chest: Bronchial breath sounds all over lung mas with coarse crackles present more so in the right lower zone, decreased air entry in left lower zone, rhonchi all over lung mas CVS: S1-S2 irregularly irregular, tachycardia, no gallops, no rubs Abdomen: Soft, nontender, no organomegaly, bowel sounds present Neuro: No focal deficits, no facial deformity, AO x3, power 5/5 in all limbs Resp: AUSCULTATION: crackles, rales, wheezes and diminished lung sounds (Left lower zone) Data 07/11/23 04:28 07/11/23 07:50 Micro: Microbiology 07/09/23 13:30 Blood Culture - Preliminary Blood NEGATIVE TO DATE 07/09/23 13:00 Blood Culture - Preliminary Blood NEGATIVE TO DATE A&P Assessment and plan (1) Hypotension: Soft blood pressure today morning. Maintain mean airway pressure 65. Patient is awake and alert and asymptomatic. Urine output appropriate. Hemoglobin stable. Cortisol level on admission elevated. Patient does have hypoalbuminemia. Cheetah exam shows patient to be not fluid responsive. Discontinue fentanyl patch. Continue with home dose of pain medications. Start on IV albumin every 8 hourly. Hold off on metoprolol. Continue with Cardizem 60 mg 3 times a day. Hold Cardizem for systolic blood pressure of less than 90 mmHg. Start on midodrine 5 mg 3 times daily. (2) Respiratory failure: Oxygen supplementation stable. Most likely in setting of right-sided lower lobe pneumonia along with left pulmonary embolism with infarction. Oxygen supplementation keeping saturation over 90%. Pulmonary toilet with I-S and flutter valve. Ipratropium, Xopenex every 6 hours, Pulmicort twice daily, Mucomyst every 6 hours. Appreciate pulmonary recommendations. (3) Pulmonary embolism with infarction: Appreciate CTA done today. Concern for left lower lobe pulmonary embolism with infarction. Echocardiogram shows EF of 45 to 50% with mild MR, dilated IVC, normal RA and RV, global LV hypokinesia Patient is already on home dose of Eliquis. Discussed in detail with patient's outpatient oncologist. Plan to transition over to full dose Lovenox 1 mg/kg body weight every 12 hourly going forward even at home. Renal functions have remained stable to improved. PTT has been labile. Discontinue heparin drip. Start on Lovenox 1 mg/kg body weight every 12 hours 3 hours after stopping heparin drip. High risk for hemoptysis. Will continue to monitor. (4) Pneumonia: Urine Legionella, bacterial antigen negative. Blood cultures so far negative. MRSA swab negative, respiratory viral panel negative. Patient is immunocompromised as being on oral chemotherapy. Discontinue vancomycin. Continue with IV Zosyn. Azithromycin stopped as patient has finished a 3-day course. 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 Concern for tumor in infrahepatic IVC near the renal level. Appreciate lower limb Doppler for DVT. For now we will continue with anticoagulation as above. Monitor hemoglobin daily. (6) Atrial fibrillation with rapid ventricular response: Takes amiodarone 200 mg daily, Cardizem 180 mg oral daily, metoprolol 100 mg twice daily along with Eliquis. Continue with amiodarone. Cardizem changed to 60 mg 3 times a day with holding parameters as above. Holding off on metoprolol given hypotension. Continue with amiodarone. Eliquis changed to Lovenox as above. Will be discharged on full dose Lovenox. (7) Acute kidney injury: High risk of FELICIANO in setting of single kidney with renal cell carcinoma currently. Baseline creatinine normal. Creatinine improving. Medical reconciliation done for nephrotoxic drugs. CT abdomen pelvis on admission negative for obstruction. Continue with normal saline at 50 cc/h. Continue Flaherty catheterization for strict input output charting. Associated with hyponatremia and hyperkalemia. Hyponatremia stable. Continue with fluids as above. Continues to have persistent hyperkalemia. Kalemia improving. Continue with Kayexalate Repeat BMP in afternoon. Appreciate uric acid and magnesium levels. Replete magnesium 1 g (8) Hyperkalemia: (9) Hyponatremia: (10) Renal cell carcinoma: Follows up with oncology as an outpatient. Takes oral chemotherapy. Found to have L2 vertebrae metastasis along with a right hilar mass. Discussed with outpatient oncologist. Hold off on any further oral chemotherapy. Plan to discharge on Lovenox shots. Patient will be seen by oncology team at the earliest on discharge. Continue with home pain medications including morphine 15 mg twice daily, oxycodone 1 tablet 4 times daily. (11) Metastatic cancer: (12) Solitary left kidney: Plan Atrial fibrillation: Continue with home dose of metoprolol, amiodarone. Switch Cardizem to 60 mg every 6 hourly. After medical reconciliation it seems patient is on Eliquis on at home. Patient states he is compliant with medication. Will transition to full dose Lovenox on discharge given thrombosis while being on Eliquis. CODE STATUS: Discussed in detail with the patient. He would want to remain full code. Cardiac diet Protonix OPD prophylaxis Heparin drip will be sufficient for DVT prophylaxis Out of bed to chair. Physical therapy. Iron deficiency anemia: Start on IV iron supplementation. 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
[2023-07-11] MEDS: sodium polystyrene sulfonate 15 gm/60 mL Btl PO (15:34)
[2023-07-11 19:36] LABS: Blood Urea Nitrogen 21 mg/dL (8-23); Calcium 7.3 mg/dL (8.5-10.5); Carbon Dioxide 24 mmol/L (22-29); Chloride 101 mmol/L (98-107); Creatinine Clr Calc Pharmacy 139.8069; Glomerular Filtration Rate 135.6 mL/min (90-130); Glucose 143 mg/dL (65-115); Osmolality Calculated 285 mOsm/kg (285-295); Sodium 135 mmol/L (136-145)
[2023-07-11 19:39] LABS: Anion Gap 15.4 (5-19); Potassium 5.4 mmol/L (3.5-5.1)
[2023-07-11 20:40] LABS: Glucose Point of Care 123 mg/dL (70-110)
[2023-07-11 21:48] LABS: Glucose Point of Care 294 mg/dL (70-110)
[2023-07-12] VITALS (43 sets, daily range): BP systolic 95–143; BP diastolic 64–109; PULSE 58–124; RESP 4–28; TEMP 36.2–36.6; O2SAT 90–100; BMI 19.8
[2023-07-12] MEDS: piperacillin-tazobactam 3.375 GM in sodium chloride 0.9% (plus) 50 ML IV ×4 (00:34→23:54)
[2023-07-12] MEDS: enoxaparin 80 mg/0.8 mL Syringe 70 MG SUBCUT ×3 (00:34→23:55)
[2023-07-12] MEDS: albumin 25 G/100 ML BAG 60 G IV ×2 (02:32→09:58)
[2023-07-12] MEDS: levalbuterol 0.63 mg/3 mL Neb 0.630000000000000004 MG INHALATION ×4 (02:52→19:58)
[2023-07-12] MEDS: acetylcysteine 200 mg/mL MDV 10 mL 100 MG INHALATION ×3 (02:52→14:59)
[2023-07-12] MEDS: ipratropium 0.5 mg/2.5 mL Neb INHALATION ×4 (02:52→19:58)
[2023-07-12 05:15] LABS: Basophils % 0.2 %; Hematocrit 33.4 % (37-53); Lymphocytes # 1.2 10^3/uL (0.8-4.8); Lymphocytes % 9.2 %; Mean Corpuscular HGB Conc 30.5 g/dL (30-55); Mean Corpuscular Hemoglobin 26.6 pg (27-33); Mean Corpuscular Volume 87.2 fl (82-101); Mean Platelet Volume 10.2 fL (7.4-10.4); Monocytes # 0.7 10^3/uL (0.2-0.9); Monocytes % 5.4 %; Neutrophils # 10.96 10^3/uL (1.8-7.7); Neutrophils % 82.3 %; Nucleated Red Blood Cells % 0.2 %; Platelet Count 351 10^3/cmm (157-399); Red Blood Count 3.83 10^6/uL (3.85-5.65); Red Cell Distribution Width 21.2 % (12.1-15.1); White Blood Count 13.33 10^3/uL (3.29-11.43)
[2023-07-12 05:25] LABS: Alanine Aminotransferase < 5 U/L (0-41); Albumin Level 2.8 g/dL (3.5-5.2); Alkaline Phosphatase 109 U/L (40-130); Blood Urea Nitrogen 13 mg/dL (8-23); Calcium 6.7 mg/dL (8.5-10.5); Carbon Dioxide 24 mmol/L (22-29); Chloride 100 mmol/L (98-107); Creatinine Clr Calc Pharmacy 209.7104; Glomerular Filtration Rate 216.6 mL/min (90-130); Glucose 126 mg/dL (65-115); Osmolality Calculated 284 mOsm/kg (285-295); Sodium 136 mmol/L (136-145); Total Bilirubin 0.7 mg/dL (0.15-1.2); Total Protein 4.8 g/dL (6.6-8.7)
[2023-07-12 05:26] LABS: Anion Gap 16.6 (5-19); Aspartate Amino Transferase 7 U/L (0-40); Potassium 4.6 mmol/L (3.5-5.1)
[2023-07-12 05:28] LABS: Magnesium 1.4 mg/dL (1.7-2.3)
[2023-07-12 05:29] LABS: Phosphorus 1.9 mg/dL (2.5-4.5)
[2023-07-12] MEDS: levothyroxine 88 mcg Tablet PO (05:43)
[2023-07-12 07:38] LABS: Glucose Point of Care 153 mg/dL (70-110)
[2023-07-12] MEDS: budesonide 0.5 mg/2 mL Neb INHALATION ×2 (08:02→19:59)
[2023-07-12] MEDS: sodium chloride 0.9% 1,000 ML 50 ML IV (08:20)
[2023-07-12] MEDS: methylPREDNISolone sod succ 40 mg/mL INJ IVP (08:20)
[2023-07-12] MEDS: dilTIAZem 60 mg Tablet PO ×3 (08:21→20:44)
[2023-07-12] MEDS: midodrine 5 mg TABLET PO ×3 (08:21→20:44)
[2023-07-12] MEDS: morphine ER (12 HR) 15 mg Tablet PO ×2 (08:21→17:24)
[2023-07-12] MEDS: lactulose oral liq 20 gm/30 mL UDC PO (08:21)
[2023-07-12] MEDS: amiodarone 200 mg Tablet PO (08:22)
[2023-07-12] MEDS: pantoprazole DR 40 mg Tablet PO ×2 (08:22→17:24)
[2023-07-12] MEDS: insulin lispro 100 unit/1 mL SUBCUT ×2 (08:22→11:36)
[2023-07-12] MEDS: magnesium sulfate premix 2 GM/50 ML PIGGYBACK IV (11:07)
[2023-07-12 11:21] LABS: Glucose Point of Care 252 mg/dL (70-110)
[2023-07-12] MEDS: iron sucrose 200 MG in sodium chloride 0.9% (100 ml) 100 ML 220 MG IV (11:35)
--- NOTE | 2023-07-12 13:04 | P.PN_ITS ---
Subjective 2 Subjective: No acute events overnight. Today morning patient seen sitting up in bed. Denies any new complaints. Did have high urine retention on bladder scan but voided by himself earlier in the morning today. Denies any nausea, vomiting, headache. States breathing is improving. Oral intake is stable. Currently on 2 to 4 L oxygen supplementation saturating more than 95%. Medications: Reviewed: Yes Vitals/I&O/Wt Last Vital Signs Temp 97.2 F L 07/12/23 05:30 Pulse 81 07/12/23 12:00 Resp 12 07/12/23 12:00 BP 115/81 07/12/23 12:00 Pulse Ox 98 07/12/23 12:00 O2 Del Method Nasal Cannula 07/12/23 08:02 O2 Flow Rate 3 07/12/23 08:02 FiO2 40 07/09/23 12:45 07/11/23 07/12/23 07/12/23 22:59 06:59 14:59 Intake Total 250 / 1136.733 750 / 1726.461 8230.5 / 1327.5 Output Total 400 / 900 1450 / 2350 1500 / 1500 Balance -150 / 236.733 -700 / -463.267 -172.5 / -172.5 Weight last 48 hrs Weight 71.838 kg Weight 71.838 kg Weight 71.923 kg Weight 69.853 kg Physical Exam 2 Narrative: General: AOx3, in acute distress because of pain in chest, chronically sick appearing HEENT: PERRLA, pupils bilaterally equal and reactive Chest: Bronchial breath sounds all over lung mas with coarse crackles present more so in the right lower zone, decreased air entry in left lower zone, rhonchi all over lung mas CVS: S1-S2 irregularly irregular, tachycardia, no gallops, no rubs Abdomen: Soft, nontender, no organomegaly, bowel sounds present Neuro: No focal deficits, no facial deformity, AO x3, power 5/5 in all limbs Resp: AUSCULTATION: crackles, rales, wheezes and diminished lung sounds (Left lower zone) Data 07/12/23 04:21 07/12/23 04:21 A&P Assessment and plan (1) Hypotension: Blood pressure stable. Have maintained over 65. Urine output improving. Patient is awake and alert and asymptomatic. Hemoglobin stable. Cortisol level on admission elevated. Patient does have hypoalbuminemia. Albumin levels are improving. Will stop IV albumin for now. Continue to monitor. Cheetah exam shows patient to be not fluid responsive. Continue only home pain medications. Fentanyl patch discontinued. Continue to hold off on metoprolol. Continue with Cardizem 60 mg 3 times a day. Hold Cardizem for systolic blood pressure of less than 90 mmHg. Continue with midodrine 5 mg 3 times daily. (2) Atrial fibrillation with rapid ventricular response: Takes amiodarone 200 mg daily, Cardizem 180 mg oral daily, metoprolol 100 mg twice daily along with Eliquis. Continue with amiodarone. Cardizem changed to 60 mg 3 times a day with holding parameters as above. Holding off on metoprolol given hypotension. Continue with amiodarone. Eliquis changed to Lovenox as above. Will be discharged on full dose Lovenox. (3) Respiratory failure: Oxygen supplementation stable. Most likely in setting of right-sided lower lobe pneumonia along with left pulmonary embolism with infarction. Oxygen supplementation keeping saturation over 90%. Pulmonary toilet with I-S and flutter valve. Ipratropium, Xopenex every 6 hours, Pulmicort twice daily, Mucomyst every 6 hours. Appreciate pulmonary recommendations. (4) Pulmonary embolism with infarction: Appreciate CTA done today. Concern for left lower lobe pulmonary embolism with infarction. Echocardiogram shows EF of 45 to 50% with mild MR, dilated IVC, normal RA and RV, global LV hypokinesia Patient is already on home dose of Eliquis. Discussed in detail with patient's outpatient oncologist. Plan to transition over to full dose Lovenox 1 mg/kg body weight every 12 hourly going forward even at home. Renal functions have remained stable to improved. PTT has been labile. Discontinue heparin drip. Start on Lovenox 1 mg/kg body weight every 12 hours 3 hours after stopping heparin drip. High risk for hemoptysis. Will continue to monitor. (5) Pneumonia: Urine Legionella, bacterial antigen negative. Blood cultures so far negative. MRSA swab negative, respiratory viral panel negative. Patient is immunocompromised as being on oral chemotherapy. Discontinue vancomycin. Continue with IV Zosyn. Azithromycin stopped as patient has finished a 3-day course. 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 Concern for tumor in infrahepatic IVC near the renal level. Appreciate lower limb Doppler for DVT. For now we will continue with anticoagulation as above. Monitor hemoglobin daily. (7) Acute kidney injury: High risk of FELICIANO in setting of single kidney with renal cell carcinoma currently. Baseline creatinine normal. Creatinine back to baseline. Urine output improving. Medical reconciliation done for nephrotoxic drugs. CT abdomen pelvis on admission negative for obstruction. Stop fluids. Patient's oral intake improving. Continue Flaherty catheterization for strict input output charting. Hyponatremia resolved for now. Continue with fluids as above. Potassium levels better. Continue to monitor daily for now. Kayexalate as needed. Appreciate uric acid and magnesium levels. Replete magnesium 2 g (8) Hyperkalemia: (9) Hyponatremia: (10) Renal cell carcinoma: Follows up with oncology as an outpatient. Takes oral chemotherapy. Found to have L2 vertebrae metastasis along with a right hilar mass. Discussed with outpatient oncologist. Hold off on any further oral chemotherapy. Plan to discharge on Lovenox shots. Patient will be seen by oncology team at the earliest on discharge. Continue with home pain medications including morphine 15 mg twice daily, oxycodone 1 tablet 4 times daily. 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 A1c 6.7. Continue with low-dose insulin sliding scale. CODE STATUS: Discussed in detail with the patient. He would want to remain full code. Cardiac diet Protonix OPD prophylaxis Full dose Lovenox type 2 diabetes mellitus: Sufficient for DVT prophylaxis Out of bed to chair. Physical therapy. Transfer to [facility]. 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
--- NOTE | 2023-07-12 13:43 | PC.NURSE ---
large bm , linen change done and sam care done optifoam intact on buttock...
[2023-07-12] MEDS: tamsulosin 0.4 mg Capsule 0.400000000000000022 MG PO (14:32)
[2023-07-12 17:25] LABS: Glucose Point of Care 113 mg/dL (70-110)
[2023-07-12] MEDS: methylPREDNISolone sod succ 40 mg/mL INJ 20 MG IVP (18:05)
--- NOTE | 2023-07-12 18:15 | PC.NURSE ---
bed number [id number] recieved will give report and transfer ms ..
--- NOTE | 2023-07-12 18:44 | PC.NURSE ---
report to dave
[2023-07-12 20:33] LABS: Glucose Point of Care 129 mg/dL (70-110)
--- NOTE | 2023-07-12 21:12 | PC.NURSE ---
Bladder Scan: Pt voided 125 on his own, badder scan post void showed 630, Dr. Valle called, order to straight cath, 625 clear bright yellow urine via straight cath.
[2023-07-13] VITALS (14 sets, daily range): BP systolic 84–101; BP diastolic 39–66; PULSE 61–94; RESP 15–18; TEMP 36.4–36.7; O2SAT 90–97; BMI 18.8
[2023-07-13] MEDS: levalbuterol 0.63 mg/3 mL Neb 0.630000000000000004 MG INHALATION ×4 (02:16→21:00)
[2023-07-13] MEDS: ipratropium 0.5 mg/2.5 mL Neb INHALATION ×4 (02:16→21:00)
[2023-07-13] MEDS: sodium chloride 0.9% 1,000 ML 50 ML IV (04:16)
[2023-07-13] MEDS: levothyroxine 88 mcg Tablet PO (05:28)
[2023-07-13 05:33] LABS: Basophils # 0.1 10^3/uL (0.0-0.1); Basophils % 0.4 %; Hematocrit 34.8 % (37-53); Lymphocytes # 1.1 10^3/uL (0.8-4.8); Lymphocytes % 7.7 %; Mean Corpuscular HGB Conc 31.9 g/dL (30-55); Mean Corpuscular Hemoglobin 27.5 pg (27-33); Mean Corpuscular Volume 86.1 fl (82-101); Mean Platelet Volume 10.1 fL (7.4-10.4); Monocytes % 7.3 %; Neutrophils # 11.34 10^3/uL (1.8-7.7); Neutrophils % 79.7 %; Nucleated Red Blood Cells % 0.1 %; Platelet Count 339 10^3/cmm (157-399); Red Blood Count 4.04 10^6/uL (3.85-5.65); Red Cell Distribution Width 20.8 % (12.1-15.1); White Blood Count 14.22 10^3/uL (3.29-11.43)
[2023-07-13 05:47] LABS: Alanine Aminotransferase 7 U/L (0-41); Alkaline Phosphatase 119 U/L (40-130); Blood Urea Nitrogen 7 mg/dL (8-23); Calcium 7.5 mg/dL (8.5-10.5); Carbon Dioxide 31 mmol/L (22-29); Chloride 92 mmol/L (98-107); Creatinine Clr Calc Pharmacy 180.7428; Globulin 2.7 g/dL (1.3-4.6); Glomerular Filtration Rate 216.6 mL/min (90-130); Glucose 124 mg/dL (65-115); Osmolality Calculated 277 mOsm/kg (285-295); Sodium 134 mmol/L (136-145); Total Bilirubin 0.8 mg/dL (0.15-1.2); Total Protein 5.7 g/dL (6.6-8.7)
[2023-07-13 05:50] LABS: Anion Gap 15.6 (5-19); Potassium 4.6 mmol/L (3.5-5.1)
[2023-07-13 05:51] LABS: Aspartate Amino Transferase 13 U/L (0-40)
[2023-07-13 06:03] LABS: Magnesium 1.5 mg/dL (1.7-2.3)
[2023-07-13 06:04] LABS: Phosphorus 1.7 mg/dL (2.5-4.5)
[2023-07-13] MEDS: methylPREDNISolone sod succ 40 mg/mL INJ 20 MG IVP ×2 (06:11→19:42)
--- NOTE | 2023-07-13 06:36 | PC.NURSE ---
Bladder Scan: 607ml, instructed pt to urinate, pt was able to void approximately 200ml, post void bladder scan: 335ml
[2023-07-13 06:39] LABS: Glucose Point of Care 129 mg/dL (70-110)
[2023-07-13] MEDS: budesonide 0.5 mg/2 mL Neb INHALATION ×2 (08:21→21:01)
[2023-07-13] MEDS: lactulose oral liq 20 gm/30 mL UDC PO ×3 (08:29→20:34)
[2023-07-13] MEDS: piperacillin-tazobactam 3.375 GM in sodium chloride 0.9% (plus) 50 ML IV ×2 (08:29→16:30)
[2023-07-13] MEDS: dilTIAZem 60 mg Tablet PO ×2 (08:29→16:29)
[2023-07-13] MEDS: midodrine 5 mg TABLET PO ×3 (08:29→20:34)
[2023-07-13] MEDS: amiodarone 200 mg Tablet PO (08:30)
[2023-07-13] MEDS: tamsulosin 0.4 mg Capsule 0.400000000000000022 MG PO (08:30)
[2023-07-13] MEDS: pantoprazole DR 40 mg Tablet PO ×2 (08:30→19:42)
[2023-07-13] MEDS: morphine ER (12 HR) 15 mg Tablet PO ×2 (08:30→19:41)
[2023-07-13 11:13] LABS: Glucose Point of Care 216 mg/dL (70-110)
[2023-07-13] MEDS: iron sucrose 200 MG in sodium chloride 0.9% (100 ml) 100 ML 110 MG IV (11:59)
[2023-07-13] MEDS: enoxaparin 80 mg/0.8 mL Syringe 70 MG SUBCUT (11:59)
[2023-07-13] MEDS: insulin lispro 100 unit/1 mL SUBCUT ×2 (11:59→22:57)
[2023-07-13] MEDS: acetylcysteine 200 mg/mL SDV 4 mL 100 MG INHALATION ×2 (13:45→21:00)
--- NOTE | 2023-07-13 14:24 | P.PN_ITS ---
Subjective 2 Subjective: seen this morning no acute events overnight requesting to go home Vitals/I&O/Wt Last Vital Signs Temp 98.0 F 07/13/23 12:44 Pulse 84 07/13/23 13:45 Resp 18 07/13/23 13:45 BP 92/50 07/13/23 12:44 Pulse Ox 96 07/13/23 13:45 O2 Del Method Nasal Cannula 07/13/23 13:45 O2 Flow Rate 1 07/13/23 13:45 FiO2 40 07/09/23 12:45 07/12/23 07/13/23 07/13/23 22:59 06:59 14:59 Intake Total 583.333 / 2110.833 506.667 / 2617.500 760 / 760 Output Total 750 / 3600 1100 / 4700 Balance -166.667 / -1489.167 -593.333 / -2082.500 760 / 760 Weight last 48 hrs Weight 68.492 kg Weight 68.492 kg Weight 71.838 kg Weight 71.838 kg Physical Exam 2 Narrative: General: AOx3, NAD, chronically sick appearing HEENT: PERRLA, pupils bilaterally equal and reactive Chest: Bronchial breath sounds all over lung mas decreased air entry in left lower zone, mild rhonchi all over lung mas CVS: S1-S2 irregularly irregular, tachycardia, no gallops, no rubs Abdomen: Soft, nontender, no organomegaly, bowel sounds present Neuro: spontaneoulsy moves all 4 extremities Data 07/13/23 05:23 07/13/23 05:23 A&P Assessment and plan (1) Hypotension: Blood pressure stable. Have maintained over 65. Urine output improving. Patient is awake and alert and asymptomatic. Hemoglobin stable. Cortisol level on admission elevated. Patient does have hypoalbuminemia. Albumin levels are improving. Will stop IV albumin for now. Continue to monitor. Cheetah exam shows patient to be not fluid responsive. Continue only home pain medications. Fentanyl patch discontinued. Continue to hold off on metoprolol. Continue with Cardizem 60 mg 3 times a day. Hold Cardizem for systolic blood pressure of less than 90 mmHg. Continue with midodrine 5 mg 3 times daily. (2) Atrial fibrillation with rapid ventricular response: Takes amiodarone 200 mg daily, Cardizem 180 mg oral daily, metoprolol 100 mg twice daily along with Eliquis. Continue with amiodarone. Cardizem changed to 60 mg 3 times a day with holding parameters as above. Holding off on metoprolol given hypotension. Continue with amiodarone. Eliquis changed to Lovenox as above. Will be discharged on full dose Lovenox. (3) Respiratory failure: Oxygen supplementation stable. Most likely in setting of right-sided lower lobe pneumonia along with left pulmonary embolism with infarction. Oxygen supplementation keeping saturation over 90%. Pulmonary toilet with I-S and flutter valve. Ipratropium, Xopenex every 6 hours, Pulmicort twice daily, Mucomyst every 6 hours. Appreciate pulmonary recommendations. (4) Pulmonary embolism with infarction: Appreciate CTA done today. Concern for left lower lobe pulmonary embolism with infarction. Echocardiogram shows EF of 45 to 50% with mild MR, dilated IVC, normal RA and RV, global LV hypokinesia Patient is already on home dose of Eliquis. Discussed in detail with patient's outpatient oncologist. Plan to transition over to full dose Lovenox 1 mg/kg body weight every 12 hourly going forward even at home. Renal functions have remained stable to improved. PTT has been labile. Discontinue heparin drip. Start on Lovenox 1 mg/kg body weight every 12 hours 3 hours after stopping heparin drip. High risk for hemoptysis. Will continue to monitor. (5) Pneumonia: Urine Legionella, bacterial antigen negative. Blood cultures so far negative. MRSA swab negative, respiratory viral panel negative. Patient is immunocompromised as being on oral chemotherapy. Discontinue vancomycin. Continue with IV Zosyn. Azithromycin stopped as patient has finished a 3-day course. 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 Concern for tumor in infrahepatic IVC near the renal level. Appreciate lower limb Doppler for DVT. For now we will continue with anticoagulation as above. Monitor hemoglobin daily. (7) Acute kidney injury: High risk of FELICIANO in setting of single kidney with renal cell carcinoma currently. Baseline creatinine normal. Creatinine back to baseline. Urine output improving. Medical reconciliation done for nephrotoxic drugs. CT abdomen pelvis on admission negative for obstruction. Stop fluids. Patient's oral intake improving. Continue Flaherty catheterization for strict input output charting. Hyponatremia resolved for now. Continue with fluids as above. Potassium levels better. Continue to monitor daily for now. Kayexalate as needed. Appreciate uric acid and magnesium levels. Replete magnesium 2 g (8) Hyperkalemia: (9) Hyponatremia: (10) Renal cell carcinoma: Follows up with oncology as an outpatient. Takes oral chemotherapy. Found to have L2 vertebrae metastasis along with a right hilar mass. Discussed with outpatient oncologist. Hold off on any further oral chemotherapy. Plan to discharge on Lovenox shots. Patient will be seen by oncology team at the earliest on discharge. Continue with home pain medications including morphine 15 mg twice daily, oxycodone 1 tablet 4 times daily. 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 A1c 6.7. Continue with low-dose insulin sliding scale. CODE STATUS: Discussed in detail with the patient. He would want to remain full code. Cardiac diet Protonix OPD prophylaxis Full dose Lovenox type 2 diabetes mellitus: Sufficient for DVT prophylaxis Out of bed to chair. Physical therapy. 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
[2023-07-13 16:53] LABS: Glucose Point of Care 95 mg/dL (70-110)
[2023-07-13 20:38] LABS: Glucose Point of Care 147 mg/dL (70-110)
[2023-07-14 00:59] VITALS: BP 95/63; PULSE 84; RESP 18; TEMP 36.4; O2SAT 91
[2023-07-14 02:25] VITALS: PULSE 70; RESP 15; O2SAT 92
[2023-07-14] MEDS: ipratropium 0.5 mg/2.5 mL Neb INHALATION (02:30)
[2023-07-14] MEDS: levalbuterol 0.63 mg/3 mL Neb 0.630000000000000004 MG INHALATION (02:30)
[2023-07-14] MEDS: acetylcysteine 200 mg/mL SDV 4 mL 100 MG INHALATION (02:30)
[2023-07-14] MEDS: enoxaparin 80 mg/0.8 mL Syringe 70 MG SUBCUT (03:07)
[2023-07-14] MEDS: piperacillin-tazobactam 3.375 GM in sodium chloride 0.9% (plus) 50 ML IV (03:07)
[2023-07-14 04:00] VITALS: BP 100/55; PULSE 95; RESP 18; TEMP 36.3; O2SAT 90
[2023-07-14] MEDS: levothyroxine 88 mcg Tablet PO (05:35)
[2023-07-14 05:47] LABS: Basophils # 0.1 10^3/uL (0.0-0.1); Basophils % 0.6 %; Eosinophils # 0.1 10^3/uL (0.0-0.8); Eosinophils % 0.7 %; Lymphocytes % 7.2 %; Mean Corpuscular HGB Conc 30.9 g/dL (30-55); Mean Corpuscular Hemoglobin 26.7 pg (27-33); Mean Corpuscular Volume 86.4 fl (82-101); Mean Platelet Volume 10.1 fL (7.4-10.4); Monocytes # 0.9 10^3/uL (0.2-0.9); Monocytes % 6.7 %; Neutrophils # 11.05 10^3/uL (1.8-7.7); Neutrophils % 78.2 %; Nucleated Red Blood Cells % 0 %; Platelet Count 426 10^3/cmm (157-399); Red Blood Count 4.05 10^6/uL (3.85-5.65); Red Cell Distribution Width 20.6 % (12.1-15.1); White Blood Count 14.11 10^3/uL (3.29-11.43)
[2023-07-14 06:00] VITALS: PULSE 95
[2023-07-14 06:08] LABS: Alanine Aminotransferase 7 U/L (0-41); Albumin Level 2.9 g/dL (3.5-5.2); Alkaline Phosphatase 107 U/L (40-130); Anion Gap 12.8 (5-19); Aspartate Amino Transferase 9 U/L (0-40); Blood Urea Nitrogen 10 mg/dL (8-23); Calcium 7.3 mg/dL (8.5-10.5); Carbon Dioxide 32 mmol/L (22-29); Chloride 94 mmol/L (98-107); Globulin 2.4 g/dL (1.3-4.6); Glomerular Filtration Rate 167.4 mL/min (90-130); Glucose 109 mg/dL (65-115); Osmolality Calculated 280 mOsm/kg (285-295); Potassium 3.8 mmol/L (3.5-5.1); Sodium 135 mmol/L (136-145); Total Bilirubin 0.7 mg/dL (0.15-1.2); Total Protein 5.3 g/dL (6.6-8.7)
[2023-07-14 06:11] LABS: Creatinine Clr Calc Pharmacy 147.9467
[2023-07-14 06:21] LABS: Slide Review Slide Review Perform
[2023-07-14 06:34] LABS: Glucose Point of Care 157 mg/dL (70-110)
--- NOTE | 2023-07-14 07:03 | PC.NURSE ---
Low blood pressure reported to Dr. Encarnacion Last night, Orders received to hold evening dose of PO cardizem and pause IV fluids.
[2023-07-14 08:35] VITALS: BP 106/72; PULSE 91; RESP 18; TEMP 36.4; O2SAT 91
[2023-07-14] MEDS: insulin lispro 100 unit/1 mL SUBCUT (08:35)
[2023-07-14] MEDS: morphine ER (12 HR) 15 mg Tablet PO (08:36)
[2023-07-14] MEDS: tamsulosin 0.4 mg Capsule 0.400000000000000022 MG PO (08:36)
[2023-07-14] MEDS: pantoprazole DR 40 mg Tablet PO (08:36)
[2023-07-14] MEDS: amiodarone 200 mg Tablet PO (08:36)
[2023-07-14] MEDS: dilTIAZem 60 mg Tablet PO (08:36)
[2023-07-14] MEDS: midodrine 5 mg TABLET PO (08:36)
[2023-07-14] MEDS: methylPREDNISolone sod succ 40 mg/mL INJ 20 MG IVP (08:42)
--- NOTE | 2023-07-14 09:03 | PM.DCS ---
Discharge Providers Date of Admission: 07/09/23 12:50 Date of Discharge: July 14, 2023 Attending Provider at Admission: Rodriguez Drake MD Attending Provider at Discharge: Magaly Card MD Diagnoses at Discharge Discharge Diagnosis (1) Hypotension: Status: Acute (2) Atrial fibrillation with rapid ventricular response: Status: Acute (3) Lumbar stenosis with neurogenic claudication: Status: Acute (4) Lumbar disc disease with radiculopathy: Status: Inactive (5) Lumbar back pain: Status: Inactive (6) Metastatic renal cell carcinoma: Status: Resolved Qualifiers: Laterality: right Qualified Code(s): C64.1 - Malignant neoplasm of right kidney, except renal pelvis (7) Prostate cancer screening: Status: Acute (8) Bladder wall thickening: Status: Acute (9) Lung nodule < 6cm on CT: Status: Acute Permanent problem details: 2.5cm right lower lobe (10) Renal cell carcinoma: (11) H/O drug abuse: (12) H/O right nephrectomy: Reason for Visit Reason for Visit: sob Hospital Course Hospital Course 63-year-old with history of right nephrectomy for renal cell carcinoma 7 years ago current left renal cell carcinoma which has metastasized to hilar lymph node and L2 vertebrae presented with shortness of breath found to have left lower lobe PE with infarction and right lower lobe pneumonia, IVC thrombosis in infrahepatic region. Also has a history of A-fib. Was having occasional episodes of hypotension and was placed on IV albumin and midodrine during hospital stay. Did have extensive hypoalbuminemia on admission. Patient was treated for pneumonia with vancomycin and Zosyn. Case was discussed with Dr. Gary. He advised to stop the oral chemotherapy agent. Patient respiratory status improved and patient improved. He is to be discharged home on Lovenox injections twice daily and Eliquis is to be stopped at this time. This was discussed with the patient and he is agreeable. I called patient's to update her as well over the phone. Patient's metoprolol was stopped secondary to hypotension. He was kept on amiodarone and Cardizem 60 every 8 hours during hospitalization however that was reduced to 45 3 times daily at discharge. I would not put him on a long-acting Cardizem since patient does have bouts of low blood pressure in between. He has been doing well on Cardizem 60 3 times daily at this time. I will keep him on the same for now. Patient will be sent home with prednisone x 5 days and another 5 days of Levaquin to complete his course for pneumonia which would be total 10 days. Patient to follow-up with Dr. Gary's clinic as soon as possible. His clinic will call for an appointment. Patient aware. Patient being discharged home in stable and fair condition. Physical Exam Narrative: General: AOx3, NAD, chronically sick appearing HEENT: PERRLA, pupils bilaterally equal and reactive Chest: Bronchial breath sounds all over lung mas decreased air entry in left lower zone, mild rhonchi all over lung mas CVS: S1-S2 irregularly irregular, tachycardia, no gallops, no rubs Abdomen: Soft, nontender, no organomegaly, bowel sounds present Neuro: spontaneoulsy moves all 4 extremities Discharge Data Studies Completed and Pending Completed Studies During Hospitalization Category Date Time Status CTA chest CT abdomen pelvis [CT angio chest w abd pel w Cat Scan 07/09/23 11:42 Completed con] Stat XR chest 1V portable [id number] Routine Exams 07/10/23 16:22 Completed XR chest 1V portable [id number] Routine Exams 07/11/23 11:21 Completed XR chest 1V portable [id number] Stat Exams 07/09/23 09:18 Completed CV. echo complete* [id number] Routine Ultrasound 07/09/23 13:57 Completed US venous duplex lower extremity bilat [CV venous Ultrasound 07/09/23 13:36 [place] [id number]] Stat Pending at discharge Category Date Time Status Blood Culture Stat Lab 07/09/23 13:30 Results Sputum Culture Stat Lab 07/09/23 13:53 Uncollected Radiology Impressions Chest/Abdomen/Pelvis CT 07/09/23 11:42 IMPRESSION: 1. Acute pulmonary embolus described above. No evidence of RIGHT heart strain. Poor perfusion to the majority of the LEFT lower lobe 2. RIGHT lower lobe consolidation compatible with pneumonia. In addition there is a heterogeneously enhancing necrotic component that may present neoplasm 3. Groundglass infiltrates with intralobular septal thickening inferior segment LEFT upper lobe and LEFT lower lobe may be due to pneumonia, lymphangitic metastasis, versus ischemia. 4. RIGHT infrahilar mass or lymphadenopathy measuring 2.2 x 3.6 cm. 5. A few LEFT lower lobe nodules likely metastatic. A few additional subcentimeter nodules in the RIGHT upper lobe. 6. Sclerotic metastasis L2 vertebral body. 7. Enhancing solid LEFT renal lesion measuring 2.3 x 1 6.7 cm is compatible with renal cell carcinoma. No hydronephrosis in the LEFT kidney. 8. Prior RIGHT nephrectomy. 9. Patulous distention with constipation involving the RIGHT colon and transverse colon extending to the splenic flexure. Findings likely due to adynamic ileus. Markedly tortuous sigmoid colon. Findings can be followed up with colonoscopy to exclude obstructing stricture. Sigmoid colon is decompressed. 10. Numerous small hepatic metastasis. 11. Small amount of free fluid in the pelvis. 12. Distended stomach with air-fluid level. 13. Large destructive metastasis involving the LEFT iliac wing with a soft tissue component. This measures approximately 3.6 x 2.6 cm. 14. Para-aortic retroperitoneal lymphadenopathy. 15. Filling defect suspicious for tumor thrombus or bland thrombus involving the inferior vena cava at the level of the kidneys. Intrahepatic IVC appears patent. 16. Recommend lower extremity venous ultrasound for DVT Notified Bridger Sotelo DO at 07/09/2023 1:33 PM. Venous Duplex 07/09/23 13:36 IMPRESSION: Partial thrombus within the RIGHT mid/distal femoral vein. Partial thrombus within the superficial bilateral great saphenous veins below the knee. Chest X-Ray 07/11/23 11:21 IMPRESSION: Stable bibasilar opacification and possible small pleural effusions. Laboratory Results WBC 14.11 10^3/uL (3.29-11.43) H 07/14/23 04:51 RBC 4.05 10^6/uL (3.85-5.65) 07/14/23 04:51 Hgb 10.80 g/dL (11.27-16.99) L 07/14/23 04:51 Hct 35.0 % (37-53) L 07/14/23 04:51 MCV 86.4 fl (82-101) 07/14/23 04:51 MCH 26.7 pg (27-33) L 07/14/23 04:51 MCHC 30.9 g/dL (30-55) 07/14/23 04:51 RDW 20.6 % (12.1-15.1) H 07/14/23 04:51 Plt Count 426 10^3/cmm (157-399) H 07/14/23 04:51 MPV 10.1 fL (7.4-10.4) 07/14/23 04:51 Neut % (Auto) 78.2 % 07/14/23 04:51 Lymph % (Auto) 7.2 % 07/14/23 04:51 Hill % (Auto) 6.7 % 07/14/23 04:51 Eos % (Auto) 0.7 % 07/14/23 04:51 Baso % (Auto) 0.6 % 07/14/23 04:51 Neut # (Auto) 11.05 10^3/uL (1.8-7.7) H 07/14/23 04:51 Lymph # (Auto) 1.0 10^3/uL (0.8-4.8) 07/14/23 04:51 Hill # (Auto) 0.9 10^3/uL (0.2-0.9) 07/14/23 04:51 Eos # (Auto) 0.1 10^3/uL (0.0-0.8) 07/14/23 04:51 Baso # (Auto) 0.1 10^3/uL (0.0-0.1) 07/14/23 04:51 Nucleated RBC % (auto) 0 % 07/14/23 04:51 Nucleated RBCs # 0.0 /100WBC 07/14/23 04:51 APTT 187.1 SECONDS (23.9-36.7) H* D 07/11/23 07:50 Specimen Type Arterial 07/09/23 12:01 Sample Site Brachial, left 07/09/23 12:01 ABG pH 7.31 (7.35-7.45) L 07/09/23 12:01 ABG pCO2 51.5 mmHg (35-45) H 07/09/23 12:01 ABG pO2 89.9 mmHg (80.0-100.0) 07/09/23 12:01 ABG PO2/FiO2 Ratio 0 07/09/23 12:01 ABG HCO3 25.6 mmol/L (22-26) 07/09/23 12:01 ABG O2 Saturation 96.1 07/09/23 12:01 ABG Base Excess -1.5 mmol/L (-2.0-2.0) 07/09/23 12:01 Duy Test N/a 07/09/23 12:01 A-a O2 Gradient 13.6 mmHg (5-10) H 07/09/23 12:01 Hematocrit 46.6 % (42-52) 07/09/23 12:01 Hgb O2 Saturation 94.5 % (95-100) L 07/09/23 12:01 Carboxyhemoglobin 1.4 %THgb (0.4-20.1) 07/09/23 12:01 Methemoglobin 0.2 % (0.4-1.5) L 07/09/23 12:01 Total Hemoglobin 15.2 g/dL (14-18) 07/09/23 12:01 Sodium 127.0 mmol/L (131-143) L 07/09/23 12:01 Potassium 5.9 mmol/L (3.5-5.0) H 07/09/23 12:01 Glucose 91.0 mg/dL (70-115) 07/09/23 12:01 Ionized Calcium Not Reportable 07/09/23 12:01 O2 Delivery Device Nc 07/09/23 12:01 O2 Liters/Min 4.0 % 07/09/23 12:01 FiO2 36.0 % 07/09/23 12:01 Brim Pouncing Machine Operator ID [email or web address] 07/09/23 12:01 Sodium 135 mmol/L (136-145) L 07/14/23 04:51 Potassium 3.8 mmol/L (3.5-5.1) 07/14/23 04:51 Chloride 94 mmol/L (98-107) L 07/14/23 04:51 Carbon Dioxide 32 mmol/L (22-29) H 07/14/23 04:51 Anion Gap 12.8 (5-19) 07/14/23 04:51 BUN 10 mg/dL (8-23) 07/14/23 04:51 Creatinine 0.5 mg/dL (0.7-1.2) L 07/14/23 04:51 GFR Calculation 167.4 mL/min (90-130) H 07/14/23 04:51 Glucose 109 mg/dL (65-115) 07/14/23 04:51 POC Glucose 157 mg/dL (70-110) H 07/14/23 06:31 Estimat Average Glucose 146 07/10/23 03:29 Hemoglobin A1c 6.7 % (4.0-6.0) H 07/10/23 03:29 Calculated Osmolality 280 mOsm/kg (285-295) L 07/14/23 04:51 Lactic Acid 3.9 mmol/L (0.5-2.2) H 07/09/23 13:30 Lactic Acid (Sepsis) 3.9 mmol/L (0.5-2.2) H 07/09/23 17:30 Uric Acid 6.1 mg/dL (3.4-7.0) 07/10/23 03:29 Calcium 7.3 mg/dL (8.5-10.5) L 07/14/23 04:51 Phosphorus 1.7 mg/dL (2.5-4.5) L 07/13/23 05:23 Magnesium 1.5 mg/dL (1.7-2.3) L 07/13/23 05:23 Iron 18 ug/dL (59-158) L 07/09/23 11:00 TIBC 136 mcg/dl 07/09/23 11:00 % Saturation 13.2 % (20-50) L 07/09/23 11:00 Unsat Iron Binding 118 ug/dL (112-347) 07/09/23 11:00 Total Bilirubin 0.7 mg/dL (0.15-1.2) 07/14/23 04:51 AST 9 U/L (0-40) 07/14/23 04:51 ALT 7 U/L (0-41) 07/14/23 04:51 Alkaline Phosphatase 107 U/L (40-130) 07/14/23 04:51 Creatine Kinase 17 U/L (39-308) L 07/10/23 03:29 Troponin T Baseline 41 ng/L (0-15) H 07/09/23 11:00 Troponin T 120 Minute Cancelled 07/09/23 20:43 Delta Troponin T Cancelled 07/09/23 20:43 Troponin T Hi Sens 6Hr 34.91 ng/L (0-15) H 07/09/23 17:30 Troponin T Hi Sens 6Hr Delta -6.09 ng/L (0-12) L 07/09/23 17:30 Total Protein 5.3 g/dL (6.6-8.7) L 07/14/23 04:51 Albumin 2.9 g/dL (3.5-5.2) L 07/14/23 04:51 Globulin 2.4 g/dL (1.3-4.6) 07/14/23 04:51 Triglycerides 176 mg/dL (0-150) H 07/10/23 03:29 Cholesterol 156 mg/dL (0-200) 07/10/23 03:29 LDL Cholesterol, Calc 95 mg/dL (50-129) 07/10/23 03:29 HDL Cholesterol 26 mg/dL (60-100) L 07/10/23 03:29 LDL/HDL Ratio 3.65 RATIO (0.00-3.22) H 07/10/23 03:29 Cholesterol/HDL Ratio 6.00 mg/dL (1.0-5.00) H 07/10/23 03:29 Lipase 5 U/L (13-60) L 07/09/23 11:00 Vitamin B12 > 2000 pg/mL (232-1245) H 07/09/23 11:00 Folate 10.9 ng/mL (4.5-32.2) 07/10/23 03:29 Procalcitonin 1.85 ng/mL (0-0.5) H 07/09/23 11:00 TSH 15.09 uIU/mL (0.27-4.20) H 07/09/23 11:00 Free T4 0.17 ng/dL (0.82-1.77) L 07/09/23 17:30 Free T3 0.4 PG/ML (2.0-4.4) L 07/09/23 17:30 Random Cortisol 30.81 ug/dL (2.47-19.5) H 07/09/23 11:00 Urine Color Dark yellow (Yellow) 07/09/23 10:44 Urine Appearance Clear (CLEAR) 07/09/23 10:44 Urine pH 5 (5-7) 07/09/23 10:44 Ur Specific Graham 1.025 (1.005-1.030) 07/09/23 10:44 Urine Protein Neg (Negative) 07/09/23 10:44 Urine Glucose (UA) Norm (Normal) 07/09/23 10:44 Urine Ketones Negative (Negative) 07/09/23 10:44 Urine Blood Neg (Negative) 07/09/23 10:44 Urine Nitrate Negative (Negative) 07/09/23 10:44 Urine Bilirubin 1+ (Negative) H 07/09/23 10:44 Urine Urobilinogen 1 mg/dL (Negative) H 07/09/23 10:44 Ur Leukocyte Esterase Negative (Negative) 07/09/23 10:44 Adenovirus (PCR) Not detected (NOT DETECT) 07/09/23 16:00 C. pneumoniae DNA (PCR) Not detected (NOT DETECT) 07/09/23 16:00 Coronavirus 229E (PCR) Not detected (NOT DETECT) 07/09/23 16:00 Human Metapneumovir PCR Not detected (NOT DETECT) 07/09/23 16:00 Influenza A (H1) PCR Not detected (NOT DETECT) 07/09/23 16:00 Influ A (H1/09) PCR Not detected (NOT DETECT) 07/09/23 16:00 Influenza A (H3) PCR Not detected (NOT DETECT) 07/09/23 16:00 Influenza Type A (PCR) Not detected (NOT DETECT) 07/09/23 16:00 Influenza Type B (PCR) Not detected (NOT DETECT) 07/09/23 16:00 M. pneumoniae (PCR) Not detected (NOT DETECT) 07/09/23 16:00 Parainfluenza 1 (PCR) Not detected (NOT DETECT) 07/09/23 16:00 Parainfluenza 2 (PCR) Not detected (NOT DETECT) 07/09/23 16:00 Parainfluenza 3 (PCR) Not detected (NOT DETECT) 07/09/23 16:00 Parainfluenza 4 (PCR) Not detected (NOT DETECT) 07/09/23 16:00 RSV Type A (PCR) Not detected (NOT DETECT) 07/09/23 16:00 RSV Type B (PCR) Not detected (NOT DETECT) 07/09/23 16:00 Entero/Rhino (PCR) Not detected (NOT DETECT) 07/09/23 16:00 SARS-CoV-2 (PCR) Not detected (NOT DETECT) 07/09/23 16:00 MRSA (PCR) Not detected (NOT DETECTED) 07/09/23 16:50 Vitals Last Vital Signs Temp 97.5 F L 07/14/23 08:35 Pulse 91 07/14/23 08:35 Resp 18 07/14/23 08:35 BP 106/72 07/14/23 08:35 Pulse Ox 91 07/14/23 08:35 O2 Del Method Nasal Cannula 07/14/23 08:35 O2 Flow Rate 1 07/14/23 02:25 FiO2 40 07/09/23 12:45 Discharge Plan Discharge Patient Disposition: Home Health Service Condition: Stable Prescriptions: New midodrine 5 mg Tablet 5 mg PO TID Qty: 90 0RF levofloxacin 500 mg tablet 500 mg PO DAILY 5 Days Qty: 5 0RF prednisone 20 mg tablet 20 mg PO DAILY Qty: 5 0RF Cardizem 30 mg tablet 45 mg PO TID Qty: 60 0RF Continued amiodarone 200 mg tablet 200 mg PO DAILY pantoprazole 40 mg tablet,delayed release (DR/EC) 40 mg PO BID morphine 15 mg tablet extended release 15 mg PO BID oxycodone-acetaminophen 7.5-325 mg tablet 1 tab PO QID PRN (Reason: Pain) lactulose 10 gram/15 mL solution 30 ml PO TID naloxone [Narcan] 4 mg/actuation [place],Non-Aerosol See Rx Instructions .ROUTE .COMPLEX Rx Instructions: [place] 1 dose into ONE nostril; alternate nostrils w each dose until help arrives Held axitinib 5 mg tablet 5 mg PO BID Qty: 60 11RF Hold Instructions: see oncology furosemide 40 mg tablet 40 mg PO DAILY Hold Instructions: see oncology dexamethasone 4 mg Tablet 4 mg PO Q12H Qty: 30 0RF Hold Instructions: see oncology Discontinued morphine 15 mg tablet extended release 15 mg PO Q12H oxycodone-acetaminophen 5-325 mg tablet 1 tab PO Q6H PRN (Reason: break through pain) pantoprazole 40 mg tablet,delayed release (DR/EC) 40 mg PO BID levofloxacin 500 mg tablet 500 mg PO DAILY lactulose 10 gram/15 mL solution See Rx Instructions .ROUTE .COMPLEX Rx Instructions: DIRECTED amiodarone [Pacerone] 200 mg Tablet 400 mg PO DAILY Qty: 120 3RF sodium chloride 1,000 mg Tablet,Soluble 1,000 mg PO BID Qty: 6 0RF metoprolol tartrate 100 mg tablet 100 mg PO BID Qty: 60 3RF Eliquis 5 mg tablet 5 mg PO BID Qty: 60 0RF nystatin 100,000 unit/mL suspension See Rx Instructions .ROUTE .COMPLEX Rx Instructions: SWISH AND SWALLOW 10ML TWICE DAILY FOR THROAT IRRITATION metoprolol tartrate 100 mg tablet 100 mg PO BID amiodarone 200 mg tablet 200 mg PO DAILY spironolactone 25 mg tablet 25 mg PO DAILY diltiazem HCl [DILT-XR] 180 mg capsule,ext.rel 24h degradable 180 mg PO DAILY Inlyta 5 mg tablet 5 mg PO BID diltiazem HCl [DILT-XR] 180 mg Capsule,Ext.Rel 24h Degradable 180 mg PO Q24H Qty: 30 0RF furosemide [Lasix] 40 mg tablet 40 mg PO DAILY Qty: 30 0RF No Action enoxaparin 80 mg/0.8 mL syringe 70 mg SUBCUT Q12H 14 Days Qty: 19.6 0RF Discharge Orders: Discharge Order (Routine); Ordered 07/14/23 Ordered By: Magaly Card Other Ambulatory Orders: DME: Walker (Order) Location: None Selected Ordered By: Magaly Card Basic Metabolic Panel (Routine) Timeframe: 3 Days Facility: [facility] - Location: Lab - Main Lab Ordered By: Magaly Card Complete Blood Count w/Auto (Routine) Timeframe: 3 Days Location: Determined by Patient Ordered By: Magaly Card Referrals: Conchis Ko MD [Hospitalist] - 1-3 days (We have notified your physician's clinic of the need for a follow-up appointment to be scheduled. If you have not heard from them within the next 2 business days, please call them directly. ) Discharge Diet: Cardiac and Diabetic Discharge Activity: Resume usual activity, Use walker/crutches as instructed and As per PT/OT instructions Patient Instructions: Diltiazem (By mouth), Prednisone (By mouth), Enoxaparin (By injection), Midodrine (By mouth), Levofloxacin (By mouth), Pulmonary Embolism (GEN), Acute Kidney Injury (GEN), Opioid Safety Activity Restrictions/Additional Instructions: Please follow up with primary care doctor within 1-3 days of discharge. Discharge Attestations Time Spent in Discharge Care*: greater than 30 min Quality Metrics Clinical Quality Measures [ No reported AMI, CVA or VTE this stay] Coding Level of Care Code Acute Code for Chg Fwd Diagnoses Hypotension I95.9 Atrial fibrillation with rapid ventricular response I48.91 Lumbar stenosis with neurogenic claudication M48.062 Lumbar disc disease with radiculopathy M51.16 Lumbar back pain M54.50 Renal cell carcinoma of right kidney metastatic to other site C64.1 Laterality: right Prostate cancer screening Z12.5 Bladder wall thickening N32.89 Lung nodule < 6cm on CT R91.1 Renal cell carcinoma C64.9 H/O drug abuse F19.11 H/O right nephrectomy Z90.5
--- NOTE | 2023-07-14 09:39 | PC.CHAP ---
Pastoral Care Encounter/Spiritual Assessment Type of Contact [] Declined special distribution clerk visit [] Patient/Family/Request visit [] Outpatient visit [] Follow-up visit [] Physician referral [] Code/Alert [x] Routine visit [] Staff referral [] Actively dying [] Patient sleeping [] Family support [] [] Out of room [] Palliative care [] [] Receiving care in room [] Pre-surgical visit [] Trauma [] Long length of stay [] ICU visit [] Other: Relational/Emotional Strength [x] Patient feels connected with others/family/visitors/staff [] Distress [] Loneliness/isolation [] Abandonment Spirituality of Patient [x] Person of Charito [] Attends Anglican of their Charito [x] Believes in Prayer [] Reads Bible or Yarsani materials [] There are Spiritual issues to be addressed [employer] Inspector Interventions [x] Prayer [x] Active listening [] Non-anxious presence [x] Spiritual/emotional support [] Crisis/trauma care [] Spiritual counseling [] Bereavement support [] Provided bereavement packet [] Provided Bible/devotional materials [] Provided toy/stuffed animal, coloring book to patient or family member [] Provided Communion [] Anointing/[place] [] Salvation [x] Completed spiritual assessment [] Other: Impact on Illness or Injury [] Angry [] Fearful [] Anxious [] Often cries [] Exhaustion [] Unable to work [] Unable to attend spiritism [] Unable to walk/stand [] Unable to read [] Unable to drive [] Unable to eat/drink [] Unable to sleep [] Unable to be with family [] Patient intubated [] Other: Summary Time spent with patient 5 min
--- NOTE | 2023-07-14 11:13 | PC.NURSE ---
D/C pending ride home. Pt says or nephew should be here shortly to pick him up.
--- NOTE | 2023-07-14 12:58 | PC.NURSE ---
Pt states that he brought his dentures with him, however, no dentures were found at his bedside or in the pyxus. Pt said that they were left in the ER. I called ICU and ER and neither department had seen them. Dandy in ER says she brought pt up here and they were in his mouth. Pt says that is not accurate.
== END 2023-07-14 12:59 | disposition home or self-care (01) | DRG 175 ==
LOC: ER 10:23 → ICU 12:51 → MEDSURG 13:14 → ICU 13:45 → MEDSURG 07-12 19:19
PROVIDERS: Admitting Provider Student in an Organized Health Care Education/Training Program; Emergency Provider Family Medicine; Visit Provider Internal Medicine
DX: I26.99 Other pulmonary embolism without acute cor pulmonale (principal); I82.220 Acute embolism and thrombosis of inferior vena cava; J18.9 Pneumonia, unspecified organism; J96.90 Respiratory failure, unspecified, unspecified whether with hypoxia or hypercapnia; I82.411 Acute embolism and thrombosis of right femoral vein; C79.51 Secondary malignant neoplasm of bone; C77.1 Secondary and unspecified malignant neoplasm of intrathoracic lymph nodes; E87.1 Hypo-osmolality and hyponatremia; N17.9 Acute kidney failure, unspecified; C64.2 Malignant neoplasm of left kidney, except renal pelvis; I48.91 Unspecified atrial fibrillation; E87.5 Hyperkalemia; E88.09 Other disorders of plasma-protein metabolism, not elsewhere classified; R91.1 Solitary pulmonary nodule; R33.9 Retention of urine, unspecified; I95.9 Hypotension, unspecified; Z11.52 Encounter for screening for COVID-19; Z12.5 Encounter for screening for malignant neoplasm of prostate; Z85.528 Personal history of other malignant neoplasm of kidney; Z90.5 Acquired absence of kidney; Z79.60 Long term (current) use of unspecified immunomodulators and immunosuppressants
CPT/HCPCS: 36415; 36416; 36573; 36592; 36600; 51702; 51798; 71045; 71275; 74177; 80048; 80051; 80053; 80061; 81003; 82330; 82533; 82550; 82607; 82746; 82805; 82962; 83036; 83540; 83550; 83605; 83690; 83735; 84100; 84145; 84439; 84443; 84481; 84484; 84550; 85025; 85730; 86403; 87040; 87449; 87486; 87581; 87633; 87641; 93005; 93306; 93970; 94640; 94660; 96365; 96372; 96374; 96375; 96376; 97110; 97116; 97162; 99291; C1751; J1644; J1650; J1756; J1815; J2543; J2919; J3370; J3475; J3490; J7030; J7050; J7608; J7613; J7614; J7626; J7644; J7799; P9046; Q0144; Q9967